=== PATIENT | female | born 1940 | race Caucasian/White ===

== ENCOUNTER 2017-09-18 19:23 | Inpatient (IN) | payer OTHER ==
[~2017-09-18] VITALS: Ht 157.5 cm; Wt 74.9 kg
[~2017-09-18 19:23] MED LIST: ALPRAZOLAM1 MG PO; AVELOX400 MG PO; BUSPIRONE HCL15 MG PO; BUSPIRONE15 MG PO; CARBIDOPA AND L1 TA1 PO; LOPRESSOR 12.12.5 MG PO; LOPRESSOR50 MG PO; PREDNISONE10 MG PO; SPIRIVA 18 MCG18 MCG INH; VENLAFAXINE HYD75 M1 PO; VERAPAMIL HCL180 MG PO
--- NOTE | 2017-09-18 19:54 | ED SYNCOPE COMPLAINT ---
History of Present Illness General Chief Complaint: General Adult Stated Complaint: WEAKNESS Source: patient Exam Limitations: no limitations Vital Signs & Intake/Output Vital Signs & Intake/Output Vital Signs Date Time Temp Pulse Resp B/P B/P Pulse O2 O2 Flow FiO2 Mean Ox Delivery Rate 09/19 0308 95 Room Air 09/19 0308 97.2 89 22 110/60 95 Room Air 09/19 0252 95 Room Air 09/19 0103 98.0 81 16 110/69 99 09/18 2238 98.7 80 18 108/57 98 Room Air 09/18 2058 98.7 80 18 107/58 97 Room Air 09/18 1940 89 16 113/64 96 Room Air ED Intake and Output 09/19 0000 09/18 1200 Intake Total 0 Output Total 0 Balance 0 Intake, Oral 0 Output, Urine 0 Allergies Coded Allergies: NO KNOWN ALLERGIES (10/20/13) Reconcile Medications Buspirone HCl (Unknown Strength) TABLET (Unknown Dose) PO BID MENTAL HEALTH ( Reported) Losartan Potassium (Unknown Strength) TABLET (Unknown Dose) PO DAILY BP ( Reported) Metoprolol Succinate (Unknown Strength) TAB.ER.24H (Unknown Dose) PO DAILY HEART/BP (Reported) Umeclidinium [place] (Incruse Ellipta) 62.5 MCG/ACTUATION BLST.W.DEV 1 PUFF INH DAILY COPD (Reported) Venlafaxine HCl (Venlafaxine HCl ER) (Unknown Strength) CAP.ER.24H (Unknown Dose) PO DAILY MENTAL HEALTH (Reported) Triage Nurses Notes Reviewed? yes Timing: single episode today Precipitating Factors: none Context: SUDDEN UNRESPONSIVENESS Episode Description: Patient was found unresponsive in a wheelchair in the waiting room. Loss of Consciousness: prolonged (minutes) Associated Symptoms: syncope LMP (ages 10-50): post menopausal : No Patient currently breastfeeds: No HPI: 77-year-old female past medical history of hypertension, hyperlipidemia, COPD presents for evaluation of weakness. Patient states that when she woke up today she felt very weak was unable to get out of bed without help. She usually is able to walk without difficulty. She denies any chest pain or shortness of breath. On initial evaluation to the ER patient was found in the waiting room unresponsive in a wheelchair. She was rushed back for evaluation. She does not remember the events leading up to her being unresponsive. She denies chest pain shortness of breath dizziness or lightheadedness. She's never had a heart attack. She sees Dr. Jacinto for cardiology. She does report some left lower extremity swelling that has been chronic for several months. No recent surgery no history of blood clots. (Ab Bond) Past History Travel History Traveled to [place] past 21 day No Medical History Any Pertinent Medical History? see below for history History of MRSA: No History of VRE: No History of CDIFF: No Surgical History Surgical History: non-contributory Psychosocial History Who do you live with Spouse Services at Home None What is your primary language Moz[place]ican Family History Family History, If Any: FATHER (cancer pancreas). Relation not specified for: FH: Alzheimers disease FH: bipolar disorder FH: cancer FH: heart attack FHx: stroke Hypertension Hx Contributory? No (Ab Bond) Review of Systems Review of Systems Constitutional: Reports: weakness. EENTM: Reports: no symptoms. Respiratory: Reports: no symptoms. Cardiovascular: Reports: syncope. GI: Reports: no symptoms. Genitourinary: Reports: no symptoms. Musculoskeletal: Reports: no symptoms. Skin: Reports: no symptoms. Neurological/Psychological: Reports: no symptoms. All Other Systems: Reviewed and Negative (Ab Bond) Physical Exam Physical Exam General Appearance: well developed/nourished, no apparent distress, alert, awake Head: atraumatic, normal appearance Eyes: Bilateral: normal appearance, PERRL, EOMI. Ears, Nose, Throat: normal pharynx, normal ENT inspection, hearing grossly normal Neck: normal inspection, supple, full range of motion Respiratory: normal breath sounds, chest non-tender, no respiratory distress, lungs clear Cardiovascular: regular rate/rhythm, normal peripheral pulses Gastrointestinal: normal bowel sounds, soft, no organomegaly, tenderness (mild upper abdominal pain ) Back: normal inspection, normal range of motion Extremities: normal range of motion, there is nonpitting left lower extremity edema Psychiatric: awake, alert, oriented x 3 Cranial Nerves: normal hearing, normal speech, PERRL Coordination/Gait: normal finger to nose Motor/Sensory: no motor/sensory deficits Skin: intact, normal color, warm/dry Core Measures ACS in differential dx? Yes CVA/TIA Diagnosis: No Sepsis Present: No Sepsis Focused Exam Completed? No (Ab Bond) Progress Differential Diagnosis: AMI, aortic dissection, aortic valve, drug induced syncope, orthostatic syncope, other valvular disease, pulmonary embolus, seizure , subarachnoid hem., TIA/CVA, dysrhythmia Plan of Care: Orders Procedure Date/time Status Heart Healthy Diet 09/19 B Active TROPONIN LEVEL 09/19 0600 Active CBC WITHOUT DIFFERENTIAL 09/19 0600 Active BASIC ELECTROLYTES PLUS BUN&CR 09/19 0600 Active EKG 09/19 0600 Active LACTIC ACID 09/19 0333 Active Weight 09/19 0212 Complete Vital Signs 09/19 0212 Active Teach/Educate 09/19 021 Active Pain Treatment and Response 09/20 211 Active Nutritional Intake, Monitor 09/19 021 Active Isolation 09/19 021 Active Intake & Output 09/19 021 Active Patient Care Conference 09/20 211 Active Activity/Ambulation 09/19 021 Active ECHOCARDIOGRAM 09/19 0156 Active PT Evaluate & Treat 09/19 0134 Active Saline Lock 09/19 0134 Active Pathway - chart 09/19 0134 Active House Staff 09/19 0134 Active Code Status 09/19 0134 Active LACTIC ACID 09/19 0033 Complete Patient Data 09/19 0017 Active TRC EVALUATION (GEN) 09/19 UNK Active VTE Mechanical Prophylaxis 09/19 UNK Active Vital Signs 09/19 UNK Complete MISTAKE 09/19 UNK Active Intake & Output 09/19 UNK Complete Saline Lock 09/18 2316 Active Misc Message 09/18 2316 Active ED Holding Orders 09/18 2316 Active Admit to inpatient 09/18 2316 Active Vital Signs 09/18 2316 Active Code Status 09/18 2316 Complete TROPONIN LEVEL 09/18 2300 Complete EKG 09/180 Active Add-on Test (ER Only) 09/18 2200 Active Intake & Output 09/18 1957 Active Add-on Test (ER Only) 09/18 1953 Active Telemetry/Certified Diabetes Educator 09/19 1951 Active LACTIC ACID 09/18 194 Complete D-DIMER 09/18 194 Complete B-TYPE NATRIURETIC PEP (BNP) 09/18 194 Complete Add-on Test (ER Only) 09/18 194 Active FingerStick- Glucose 09/18 1939 Active URINALYSIS 09/18 1924 Active TROPONIN LEVEL 09/18 192 Complete PARTIAL THROMBOPLASTIN TIME 09/18 1924 Complete PROTHROMBIN TIME 09/18 1924 Complete COMPREHENSIVE METABOLIC PANEL 09/18 1924 Complete CBC WITHOUT DIFFERENTIAL 09/18 1924 Complete EKG 09/18 1924 Active Current Medications Sig/Liliya Start time Last Medication Dose Stop Time Status Admin Heparin Sodium 5,000 UNIT Q8 09/19 0600 AC (Porcine) Acetaminophen 650 MG Q6P PRN 09/19 0130 AC (Tylenol) Acetaminophen 1,000 MG Q6P PRN 09/19 0130 AC (Ofirmev) Oxycodone/ 1 TAB Q8P PRN 09/19 013 AC Acetaminophen (Percocet) Laboratory Tests 09/19/17 0157: Lactic Acid 0.9 09/18/17 2325: Troponin I 0.14 *H 09/18/171945: Anion Gap 15, Estimated GFR 21 L, BUN/Creatinine Ratio 11.7, Glucose 137 H, Lactic Acid 2.6 H, Calcium 9.8, Total Bilirubin 0.6, AST 15, ALT 10, Alkaline Phosphatase 59, Troponin I 0.07, Kbr-S-Opfizpeeeud Pept 71007 H, Total Protein 7.0, Albumin 4.1, Globulin 2.9, Albumin/Globulin Ratio 1.4, PT 12.2, INR 1.12, APTT 24 L, D-Dimer High Sensitivty 870 H, CBC w Diff NO MAN DIFF REQ, RBC 4.24 , MCV 86.8, MCH 28.5, MCHC 32.9 L, RDW 13.9, MPV 5.9 L, Gran % 89.6 H, Lymphocytes % 6.8 L, Monocytes % 3.5, Eosinophils % 0.1, Basophils % 0, Absolute Granulocytes 11.4 H, Absolute Lymphocytes 0.9 L, Absolute Monocytes 0.4, Absolute Eosinophils 0, Absolute Basophils 0 Patient seen and evaluated. She was brought in from the waiting room unresponsive in her wheelchair. She was transferred to the hospital bed to telemetry when she was found to be in normal sinus rhythm. After several minutes patient woke up and is back to her baseline alert and oriented 3. She does not remove the events leading up to her becoming unresponsive. She denies chest pain or abnormal shortness of breath. No dizziness or lightheadedness. She just went generalized weakness feels that she is unable to get up and walk. No slurred speech. Patient's EKG today is grossly abnormal compared to previous. She has diffuse T-wave inversions. She has no chest pain. Spoke with Joe Whitfield MD from cardiology. He recommends trending troponins telemetry monitoring EKG echocardiogram cardiology consult in the morning. He does not recommend heparinization at this time. He states that we should give fluids recheck a creatinine and trY to get a CTA tomorrow if creatinine normalizes. Patient will be admitted to telemetry for further evaluation and treatment. She will require serial labs, serial EKGs, gentle IV hydration, telemetry, echocardiogram, stress test, cardiology consult, monitoring of vital signs. Case discussed with Dr. Cintron he agrees. Diagnostic Imaging: Viewed by Me: Radiology Read, CT Scan, Ultrasound. Discussed w/RAD: Radiology Read, CT Scan, Ultrasound. Radiology Impression: PATIENT: SOHAN PATE PRESENT AGE: 77 PATIENT ACCOUNT NO: [id number] : 42 LOCATION: ER ORDERING PHYSICIAN: Ab CULLEN SERVICE DATE: 09/18/17 EXAM TYPE: US - US-DUPLEX VENOUS EXTREM UNI EXAMINATION: UNILATERAL TRIPLEX SCANNING OF THE LEFT LOWER EXTREMITY CLINICAL INFORMATION: Left lower extremity swelling. COMPARISON: None. TECHNIQUE: Color-flow triplex imaging with spectral analysis and compression Doppler were performed on the left lower extremity. FINDINGS: Respiratory variation, normal compression and augmented flow are noted throughout the lower extremity. The visualized common femoral vein, superficial femoral vein, profunda femoral vein, popliteal vein and mid calf peroneal and posterior tibial venous segments show no evidence of deep venous thrombosis. There is no Rouse's cyst. IMPRESSION: Normal triplex scan without evidence of deep venous thrombosis involving the left lower extremity. DICTATED BY: Villa Robles MD DATE/TIME DICTATED:09/18/172126 PROCESSING LEAD: TONE DATE/TIME TRANSCRIBED:09/18/172126 CONFIDENTIAL, DO NOT COPY WITHOUT APPROPRIATE AUTHORIZATION. <Electronically signed in Other Vendor System> SIGNED BY: Villa Robles MD 09/18/172130, PATIENT: SOHAN PATE PRESENT AGE: 77 PATIENT ACCOUNT NO: [id number] : 42 LOCATION: ER ORDERING PHYSICIAN: Ab CULLEN SERVICE DATE: 09/18/17 EXAM TYPE: CAT - CT HEAD WO IV CONTRAST CT HEAD WITHOUT IV CONTRAST CLINICAL INFORMATION: Weakness and unresponsive episode. COMPARISON: None available. TECHNIQUE: Contiguous axial imaging was performed from the skull base to vertex without intravenous administration of contrast. FINDINGS: There is hypoattenuation throughout the supratentorial white matter, likely moderate to severe chronic microangiopathy. Global cerebral volume loss. No dense cerebral artery sign. There is no intracranial hemorrhage, hydrocephalus, extra-axial surface collection, midline shift, or other herniation pattern. Hurtado to white matter differentiation is diffusely maintained without evidence of an evolved acute territorial infarct. The basilar cisterns are preserved. No significant soft tissue abnormality. No acute osseous abnormality. The paranasal sinuses and the mastoid air cells are well-aerated. IMPRESSION: - No acute intracranial abnormality. - Global cerebral volume loss and moderate to severe chronic microangiopathy. DICTATED BY: Prakash Sapp MD DATE/TIME DICTATED:09/18/172128 PROCESSING LEAD:TONE DATE/TIME TRANSCRIBED:09/18/172128 CONFIDENTIAL, DO NOT COPY WITHOUT APPROPRIATE AUTHORIZATION., PATIENT: SOHAN PATE PRESENT AGE: 77 PATIENT ACCOUNT NO: [id number] : 42 LOCATION: [facility] ORDERING PHYSICIAN: Ab CULLEN SERVICE DATE: 09/18/17 EXAM TYPE: CAT - CT ABD & PELVIS W/O IV CONTRAS EXAMINATION: CT ABDOMEN AND PELVIS WITHOUT CONTRAST CLINICAL INFORMATION: Kidney stones with upper abdominal pain. History of lung cancer COMPARISON: PET/CT from 10/31/2015. Chest CT from 02/25/2017 TECHNIQUE: Multidetector volumetric imaging was performed from the superior aspect of the liver through the pubic symphysis. Sagittal and coronal reformatted images were obtained on the technologist's workstation. DLP: 368 mGy-cm FINDINGS: LUNG BASES : There is chronic atelectasis at the right lung base with pleural thickening and a moderate-sized pleural effusion. Findings are similar to the [address] LIVER, GALLBLADDER, AND BILIARY TREE: The liver is normal in size, shape, and attenuation. No focal hepatic lesion or biliary ductal dilatation is present. The gallbladder is unremarkable with no evidence of radiopaque gallstones, gallbladder wall thickening, or obvious pericholecystic inflammatory changes. PANCREAS: The pancreas is normal in appearance SPLEEN: The spleen is normal in size with no focal findings ADRENAL GLANDS: The adrenal glands are normal KIDNEYS AND URETERS: The kidneys show mild cortical thinning, left greater than right which could be consistent with renal scarring. No mass is defined. There is no hydronephrosis or hydroureter. There is some vascular calcification on the left. No ureteral calculus is identified. BLADDER: The urinary bladder is incompletely distended and unremarkable in appearance GASTROINTESTINAL TRACT: There is no evidence for large or small bowel obstruction or acute inflammation. The appendix is normal in appearance. There is no diverticulitis. ABDOMINAL WALL : There is a tiny fat-containing umbilical hernia. LYMPH NODES: No bulky adenopathy is seen in the abdomen or pelvis. VASCULAR: There is calcification in the abdominal aorta and branches. No focal aneurysm is seen. Inferior vena cava is unremarkable. PELVIC VISCERA: No mass is seen in the pelvis. There is no free fluid or abnormal fluid collection. OSSEOUS STRUCTURES: No acute bony abnormality. There is degenerative change in the spine and hips IMPRESSION: There is cortical thinning consistent with scarring in both kidneys. There is no hydronephrosis, hydroureter or stone. No acute finding is seen in the abdomen or pelvis. Chronic pleural parenchymal changes at the right lung base DICTATED BY: Dania Gutierrez MD DATE/TIME DICTATED:09/18/172232 PROCESSING LEAD: TONE DATE/TIME TRANSCRIBED:09/18/172232 CONFIDENTIAL, DO NOT COPY WITHOUT APPROPRIATE AUTHORIZATION. CXR Impression: PATIENT: SOHAN PATE PRESENT AGE: 77 PATIENT ACCOUNT NO: [id number] : 42 LOCATION: [facility] ORDERING PHYSICIAN: Ab CULLEN SERVICE DATE: 09/18/17 EXAM TYPE: RAD - XRY- CHEST XRAY, TWO VIEWS EXAMINATION: XR CHEST CLINICAL INFORMATION: Weakness COMPARISON: 11/07/2015. CT chest 02/25/2017. TECHNIQUE: 2 views of the chest were obtained. FINDINGS: Chronic partial opacification of the right chest, not significantly changed. Left lung appears clear. Stable cardiomediastinal silhouette. IMPRESSION: No acute cardiopulmonary findings. No significant change. DICTATED BY: Villa Robles MD DATE/TIME DICTATED:09/18/172110 PROCESSING LEAD:TONE DATE/TIME TRANSCRIBED:09/18/172110 CONFIDENTIAL, DO NOT COPY WITHOUT APPROPRIATE AUTHORIZATION. <Electronically signed in Other Vendor System> SIGNED BY: Villa Robles MD 09/18/172116 Initial ED EKG: normal sinus rhythm, RIGHT BUNDLE-BRANCH BLOCK, LEFT VENTRICULAR HYPERTROPHY, t-WAVE INVERSIONS IN v2 v3 v4 v5 AND v6 ALSO 1 AND LEAD 2 (Ab Bond) Departure Departure Disposition: STILL A PATIENT Condition: Stable Clinical Impression Primary Impression: Acute electrocardiogram changes Secondary Impressions: Acute kidney injury, Unresponsive episode Referrals: Daniel Osorio MD (PCP/Family) Departure Forms: Customer Survey General Discharge Information Admission Note Spoke With: Pedro Gunter MD Documentation of Exam: Documentation of any treatments & extenuating circumstances including Concerns Regarding Discharge (functional status, medication knowledge or non-compliance, living conditions, etc.) that warrant an admission rather than observation: [ Telemetry monitoring, serial labs, serial EKGs, echocardiogram, cardiology consult, monitoring of vital signs] (Ab Bond) Admission Note Spoke With: Pedro Gunter MD Documentation of Exam: Documentation of any treatments & extenuating circumstances including Concerns Regarding Discharge (functional status, medication knowledge or non-compliance, living conditions, etc.) that warrant an admission rather than observation: pt with episode of unresponsiveness, ekg changes.... merits admission, serial ekgs, cards eval. PA discussed with dr. Park (troy) PA/SENIOR COPYWRITER Co-Sign Statement Statement: ED Attending supervision documentation- [x] I saw and evaluated the patient. I have also reviewed all the pertinent lab results and diagnostic results. I agree with the findings and the plan of care as documented in the PA's/SENIOR COPYWRITER's documentation. 09/19/17, 9pm... pt with episode of unresponsiveness with EKG changes, exam presently benign, pt merits tele, serial ekgs. cards eval in am. [] I have reviewed the ED Record and agree with the PA's/SENIOR COPYWRITER's documentation. [] Additions or exceptions (if any) to the PAs/SENIOR COPYWRITER's note and plan are summarized below: [] (Abdulaziz BENITEZ,Joe Lorenzana)
[2017-09-18 20:05] LABS: PT 12.2 SEC (9.4-12.5); PTT 24 SEC (25-37)
[2017-09-18 20:14] LABS: ABSOLUTE BASOPHIL COUNT 0 /CUMM (0.0-0.2); ABSOLUTE EOSINOPHIL COUNT 0 /CUMM (0.0-0.7); ABSOLUTE GRANULOCYTE CT 11.4 /CUMM (1.4-6.5); ABSOLUTE LYMPH COUNT 0.9 /CUMM (1.2-3.4); ABSOLUTE MONOCYTE COUNT 0.4 /CUMM (0.10-0.60); BASOPHIL % 0 % (0.0-2.0); EOSINOPHIL % 0.1 % (0-5); HEMATOCRIT 36.8 % (37-47); MEAN CORPUSCULAR HGB 28.5 PG (27.0-31.0); MEAN CORPUSCULAR HGB CONC 32.9 G/DL (33.0-37.0); MEAN CORPUSCULAR VOLUME 86.8 FL (81.0-99.0); MEAN PLATELET VOLUME 5.9 FL (7.4-10.4); PLATELET COUNT 311 /CUMM (130-400); RBC DISTRIBUTION WIDTH 13.9 % (11.5-14.5); RED BLOOD CELL CT 4.24 /CUMM (4.20-5.40); WHITE BLOOD CELL COUNT 12.8 /CUMM (4.8-10.8)
[2017-09-18 20:29] LABS: GRANULOCYTE % 89.6 % (42.2-75.2)
[2017-09-18] MEDS ORDERED: INCRUSE ELLI62.5 MCG INH (21:16)
[2017-09-18] MEDS ORDERED: METOPROLOL SUCC50 M2 PO (21:17)
--- NOTE | 2017-09-18 21:17 | RADIOLOGY REPORT ---
EXAMINATION: XR CHEST CLINICAL INFORMATION: Weakness COMPARISON: 11/07/2015. CT chest 02/25/2017. TECHNIQUE: 2 views of the chest were obtained. FINDINGS: Chronic partial opacification of the right chest, not significantly changed. Left lung appears clear. Stable cardiomediastinal silhouette. IMPRESSION: No acute cardiopulmonary findings. No significant change.
[2017-09-18] MEDS ORDERED: LOSARTAN POTASS50 M1 PO (21:18)
[2017-09-18] MEDS ORDERED: BUSPIRONE HCL15 M1 PO (21:19)
[2017-09-18] MEDS ORDERED: VENLAFAXINE HCL75 M1 PO (21:20)
--- NOTE | 2017-09-18 21:31 | ULTRASOUND REPORT ---
EXAMINATION: UNILATERAL TRIPLEX SCANNING OF THE LEFT LOWER EXTREMITY CLINICAL INFORMATION: Left lower extremity swelling. COMPARISON: None. TECHNIQUE: Color-flow triplex imaging with spectral analysis and compression Doppler were performed on the left lower extremity. FINDINGS: Respiratory variation, normal compression and augmented flow are noted throughout the lower extremity. The visualized common femoral vein, superficial femoral vein, profunda femoral vein, popliteal vein and mid calf peroneal and posterior tibial venous segments show no evidence of deep venous thrombosis. There is no Rouse's cyst. IMPRESSION: Normal triplex scan without evidence of deep venous thrombosis involving the left lower extremity.
--- NOTE | 2017-09-18 21:38 | CT SCAN REPORT ---
CT HEAD WITHOUT IV CONTRAST CLINICAL INFORMATION: Weakness and unresponsive episode. COMPARISON: None available. TECHNIQUE: Contiguous axial imaging was performed from the skull base to vertex without intravenous administration of contrast. FINDINGS: There is hypoattenuation throughout the supratentorial white matter, likely moderate to severe chronic microangiopathy. Global cerebral volume loss. No dense cerebral artery sign. There is no intracranial hemorrhage, hydrocephalus, extra-axial surface collection, midline shift, or other herniation pattern. Hurtado to white matter differentiation is diffusely maintained without evidence of an evolved acute territorial infarct. The basilar cisterns are preserved. No significant soft tissue abnormality. No acute osseous abnormality. The paranasal sinuses and the mastoid air cells are well-aerated. IMPRESSION: - No acute intracranial abnormality. - Global cerebral volume loss and moderate to severe chronic microangiopathy.
--- NOTE | 2017-09-18 23:03 | CT SCAN REPORT ---
EXAMINATION: CT ABDOMEN AND PELVIS WITHOUT CONTRAST CLINICAL INFORMATION: Kidney stones with upper abdominal pain. History of lung cancer COMPARISON: PET/CT from 10/31/2015. Chest CT from 02/25/2017 TECHNIQUE: Multidetector volumetric imaging was performed from the superior aspect of the liver through the pubic symphysis. Sagittal and coronal reformatted images were obtained on the technologist's workstation. DLP: 368 mGy-cm FINDINGS: LUNG BASES: There is chronic atelectasis at the right lung base with pleural thickening and a moderate-sized pleural effusion. Findings are similar to the [address] LIVER, GALLBLADDER, AND BILIARY TREE: The liver is normal in size, shape, and attenuation. No focal hepatic lesion or biliary ductal dilatation is present. The gallbladder is unremarkable with no evidence of radiopaque gallstones, gallbladder wall thickening, or obvious pericholecystic inflammatory changes. PANCREAS: The pancreas is normal in appearance SPLEEN: The spleen is normal in size with no focal findings ADRENAL GLANDS: The adrenal glands are normal KIDNEYS AND URETERS: The kidneys show mild cortical thinning, left greater than right which could be consistent with renal scarring. No mass is defined. There is no hydronephrosis or hydroureter. There is some vascular calcification on the left. No ureteral calculus is identified. BLADDER: The urinary bladder is incompletely distended and unremarkable in appearance GASTROINTESTINAL TRACT: There is no evidence for large or small bowel obstruction or acute inflammation. The appendix is normal in appearance. There is no diverticulitis. ABDOMINAL WALL: There is a tiny fat-containing umbilical hernia. LYMPH NODES: No bulky adenopathy is seen in the abdomen or pelvis. VASCULAR: There is calcification in the abdominal aorta and branches. No focal aneurysm is seen. Inferior vena cava is unremarkable. PELVIC VISCERA: No mass is seen in the pelvis. There is no free fluid or abnormal fluid collection. OSSEOUS STRUCTURES: No acute bony abnormality. There is degenerative change in the spine and hips IMPRESSION: There is cortical thinning consistent with scarring in both kidneys. There is no hydronephrosis, hydroureter or stone. No acute finding is seen in the abdomen or pelvis. Chronic pleural parenchymal changes at the right lung base
--- NOTE | 2017-09-19 02:12 | History & Physical ---
Winston BENITEZ,[place] 09/19/17 0212: General Information and HPI History of Present Illness: Patient is a 77-year-old female with past medical history of hypertension, hyperlipidemia, COPD, non-small cell lung cancer status post chemotherapy and radiation, anxiety presenting this admission with chief complaint of weakness and syncope. Patient reports that over the past day she has been feeling weak and weakness worsened over the course of the day. Patient reports that she was trying to get up after eating dinner and was unable to fully stand. Patient reports that she proceeded to fall. Patient denies any head trauma or loss of consciousness. Patient reports that she felt dizzy and as if the room was spinning. Reports she was also having abdominal pain in the epigastric region which she described as nonradiating, dull pain that is intermittent and started on day of admission. Denies any nausea, vomiting, heartburn, constipation/diarrhea, chest pain, dysuria/hematuria. Patient denies blurry vision, double vision, numbness/ tingling, shortness of breath, palpitations. Patient's partner reports that he did not notice any facial droop or slurred speech. Patient reports left leg swelling which is chronic and orthopnea. Patient when she was in the ED was found to be unresponsive and was quickly worked up with no acute EKG findings. at the time of interview patient was awake alert and oriented 3 and provided the full history. Patient's clinical support associate is Dr. Rush whom she reports that she saw last week and had no medication changes. Allergies/Medications Allergies: Coded Allergies: NO KNOWN ALLERGIES (10/20/13) Home Med list Albuterol Sulfate (Proair Hfa) 90 MCG HFA.AER.AD 2 PUF INH Q4-6 PRN PRN SHORTNESS OF BREATH (Reported) Buspirone HCl 15 MG TABLET 1 TAB PO QAM MENTAL HEALTH (Reported) Buspirone HCl 30 MG TABLET 1 TAB PO QPM MENTAL HEALTH (Reported) Carbidopa/Levodopa (Sinemet 25-100 MG Tablet) 25 MG-100 MG TABLET 1 TAB PO TID PARKINSONISM (Reported) Gabapentin (Neurontin) 100 MG CAPSULE 1 CAP PO TID . (Reported) Losartan Potassium 50 MG TABLET 1 TAB PO DAILY BP (Reported) Metformin HCl (Metformin HCl ER) 1,000 MG TAB.ER.24 1 TAB PO DAILY DM ( Reported) Metolazone 2.5 MG TABLET 1 TAB PO QFRIDAY . (Reported) Metoprolol Succinate 50 MG TAB.ER.24H 1 TAB PO DAILY HEART/BP (Reported) Pravastatin Sodium 40 MG TABLET 1 TAB PO DAILY HLD (Reported) Prochlorperazine Maleate 10 MG TABLET 1 TAB PO Q6 PRN NAUSEA/VOMITING ( Reported) Ropinirole HCl 1 MG TABLET 1 TAB PO Q1400, 2100 MENTAL HEALTH (Reported) Tramadol HCl 50 MG TABLET 1 TAB PO TIDPRN PRN PAIN (Reported) Umeclidinium [place] (Incruse Ellipta) 62.5 MCG/ACTUATION BLST.W.DEV 1 PUFF INH DAILY COPD (Reported) Venlafaxine HCl (Venlafaxine HCl ER) 75 MG CAP.ER.24H 1 CAP PO DAILY MENTAL HEALTH (Reported) Past History Travel History Traveled to [place] past 21 day No Medical History Cardiovascular: hypertension, hyperlipidemia, hypertension Endocrine: borderline diabetes History of MRSA: No History of VRE: No History of CDIFF: No Surgical History Surgical History: non-contributory Past Family/Social History Family History Relations & Conditions if any FATHER (cancer pancreas). Relation not specified for: FH: Alzheimers disease FH: bipolar disorder FH: cancer FH: heart attack FHx: stroke Hypertension Psychosocial History Services at Home: None Review of Systems Review of Systems Constitutional: Reports: see HPI. Cardiovascular: Reports: see HPI. Respiratory: Reports: see HPI. GI: Reports: see HPI. Genitourinary: Reports: no symptoms. Musculoskeletal: Reports: back pain. Skin: Reports: no symptoms. Neurological/Psychological: Reports: no symptoms. Hematologic/Endocrine: Reports: no symptoms. Exam & Diagnostic Data Last 24 Hrs of Vital Signs/I&O Vital Signs Date Time Temp Pulse Resp B/P B/P Pulse O2 O2 Flow FiO2 Mean Ox Delivery Rate 09/19 0723 97.4 94 22 130/70 98 Room Air 09/19 0308 95 Room Air 09/19 0308 97.2 89 22 110/60 95 Room Air 09/19 0252 95 Room Air 09/19 0103 98.0 81 16 110/69 99 09/18 2238 98.7 80 18 108/57 98 Room Air 09/188 98.7 80 18 107/58 97 Room Air 09/18 1940 89 16 113/64 96 Room Air Intake & Output 09/19 1600 09/19 0800 09/19 0000 Intake Total 0 Output Total 0 Balance 0 Intake, Oral 0 Output, Urine 0 Patient 175 lb Weight Physical Exam General Appearance Alert, Oriented X3, Cooperative, No Acute Distress Skin No Rashes Skin Temp/Moisture Exam: Warm/Dry HEENT Atraumatic, PERRLA, EOMI, Mucous Membr. moist/pink Neck Supple, No thryomegaly, +2 Carotid Pulse wo Bruit, elevated JVD Cardiovascular Regular Rate, Normal S1, Normal S2, No Murmurs Lungs Clear to Auscultation, Normal Air Movement Abdomen Normal Bowel Sounds, Soft, No Tenderness Neurological Normal Speech, Strength at 5/5 X4 Ext, Normal Tone, Sensation Intact, Cranial Nerves 3-12 NL, Reflexes 2+ Extremities No Clubbing, No Cyanosis, Normal Pulses, No Tenderness/Swelling, bilateral lower extremity edema Vascular Normal Pulses, Pulses Symmetrical Last 24 Hrs of Labs/Elias: Laboratory Tests 09/19/17 0745: Urine Color Pending, Urine Clarity Pending, Urine pH Pending, Ur Specific [place] Pending, Urine Protein Pending, Urine Ketones Pending, Urine Nitrite Pending, Urine Bilirubin Pending, Urine Urobilinogen Pending, Ur Leukocyte Esterase Pending, Ur Microscopic SEDIMENT EXAMINED, Urine RBC Pending, Urine Hemoglobin Pending, Urine Glucose Pending 09/19/17 0745: Urine Osmolality Pending, Ur Random Creatinine Pending, Ur Random Sodium Pending , Ur Random Potassium Pending, Fraction Sodium Excret Pending 09/19/17 0715: Lactic Acid 0.7 09/19/17 0715: Anion Gap 10, Estimated GFR 23 L, BUN/Creatinine Ratio 13.3, Hemoglobin A1c Pending, Troponin I Pending, CBC w Diff Pending, WBC Pending, RBC Pending, Hgb Pending, Hct Pending, MCV Pending, MCH Pending, MCHC Pending, RDW Pending, Plt Count Pending, MPV Pending 09/19/17 0157: Lactic Acid 0.9 09/18/17 2325: Troponin I 0.14 *H 09/18/17 1946: Anion Gap 15, Estimated GFR 21 L, BUN/Creatinine Ratio 11.7, Glucose 137 H, Serum Osmolality 297 H, Lactic Acid 2.6 H, Calcium 9.8, Total Bilirubin 0.6, AST 15, ALT 10, Alkaline Phosphatase 59, Troponin I 0.07, Eiy-E-Kxtaaabpavs Pept 51846 H, Total Protein 7.0, Albumin 4.1, Globulin 2.9, Albumin/Globulin Ratio 1.4, Lipase 517 H, PT 12.2, INR 1.12, APTT 24 L, D-Dimer High Sensitivty 870 H, CBC w Diff NO MAN DIFF REQ, RBC 4.24, MCV 86.8, MCH 28.5, MCHC 32.9 L, RDW 13.9, MPV 5.9 L, Gran % 89.6 H, Lymphocytes % 6.8 L, Monocytes % 3.5, Eosinophils % 0.1, Basophils % 0, Absolute Granulocytes 11.4 H, Absolute Lymphocytes 0.9 L, Absolute Monocytes 0.4, Absolute Eosinophils 0, Absolute Basophils 0 Microbiology 09/19 804 BLOOD: Blood Culture - ORD 09/19 804 BLOOD: Blood Culture - ORD Assessment/Plan Assessment: Patient is a 77-year-old female with past medical history of hypertension, hyperlipidemia, COPD, non-small cell lung cancer status post chemotherapy and radiation, anxiety presenting this admission with chief complaint of weakness and syncope. Patient was admitted to the telemetry floor for management of followin. Syncope 2. Elevated troponin, rule out ACS 3. Rule out for pulmonary embolism 4. Chronic conditions Plan: Admitted to telemetry for continuous monitoring Serial EKG and troponins Cardiology was consulted. Spoke to Joe Whitfield MD at approximately 3 AM in regards to to elevated troponin with V4 to V5 T-wave inversions. There was also concern of pulmonary embolism in this patient with mild JVD, syncope, clear lung exam. CTA could not be obtained due to renal failure. IV heparin was held off pending VQ scan results and next set of troponins/EKG Follow-up blood cultures Follow-up urinalysis and urine cultures Trend lactic acid Monitor vitals Confirm home medications in the morning Diet: Heart healthy Code: Full code DVT prophylaxis: Heparin subcutaneous, Alps As Ranked By This Provider Problem List: 1. Syncope 2. Elevated troponin Core Measures/Misc (02/09) Acute Coronary Syndrome ACS Diagnosis: No Congestive Heart Failure Congestive Heart Failure Diagnosis No Cerebrovascular Accident CVA/TIA Diagnosis: No VTE (View Protocol) VTE Risk Factors Age>40 No Mechanical VTE [facility] No VTE Pharm Prophylaxis d/t NA PharmProphylax ordered Sepsis (View protocol) Sepsis Present: No Marv Mancia 09/19/17 0454: Resident Review Statement Resident Statement: examined this patient, discussed with finance accounting internship, agreed with finance accounting internship, discussed with family, reviewed EMR data (avail), discussed with nursing , discussed with case mgmt, reviewed images, amended to note Other Findings: This is 77-year-old female with a medical history of Non-small cell lung cancer S/P chemotherapy and radiation, COPD not on home O2 , HTN, HLD, Parkinson's disease, anxiety. Presented to the emergency department with a chief complaint of generalized weakness and syncope. She stated that her symptom of feeling very lethargic, weak and tired started 1-2 days ago, also she report epigastric abdominal pain which started today, nonradiating, not associated with nausea, vomiting, heartburn, chest pain, urinary symptoms. She has chronic orthopnea and leg swelling which has not changed much. after she arrived to the ED she was found in the waiting room unresponsive in a wheelchair. She was rushed back for evaluation. She does not remember the events leading up to her being unresponsive. she satetd that when she was at home she fell down, she deny lose consciousness, hit her head, did not have any chest pain chest tightness before the fall, did not notice any neurological weakness or palpitations. Patient received full dose of aspirin and 1 L of normal saline bolus her second troponin peaked at 0.14 and she had elevated proBNP with a leukocytosis no band. Her EKG showed acute changes of inverted T-wave in V4 to V6. No Echo in the system. Physical examination, lab and imaging as above Problem list: -Elevated troponin could be secondary to demand ischemia, but given her epigastric pain and T-wave inversions, type 1 SD could be possible. -Syncope NEED TO R/O pulmonary embolism giving the CA hx -Acute kidney injury that can be due to medication vs low oral intake. -Leukocytosis -Non anion gap Lactic acidosis Plan: - Admit to telemetry - Vital every shift, daily weight, Strict I's and O's - Serial troponin and EKG - Check Orthostatic vitals - Obtain TSH, free T4, magnesium, HA1c. - Obtain echocardiogram in a.m. - Cardiology consult in A.M - Start IV heparin if further rise in troponin, informed cardiology - VQ scan to R/O PE due to her CHAS - Obtain Blood cultures, hold off on antibiotic for now. - Obtain urinalysis and urine electrolytes. - Trend lactic acid - Continue gentle hydration with normal saline 75 cc/hr. - Pain pathway - Need to confirm all her medications to be restart. - Diabetic diet, Accu-Chek - DVT ppt: Subcutaneous heparin - Full code Pedro Gunter 09/19/17 0607: Attending MD Review Statement Attending Statement Attending MD Statement: examined this patient, discuss w/resident/PA/WINDOW CUTTER, agreed w/resident/PA/WINDOW CUTTER, discussed with family, reviewed EMR data (avail), reviewed images, amended to note Attending Assessment/Plan: CC: Weakness and syncope PMH: Non-small cell lung cancer S/P chemotherapy and radiation, COPD, HTN, HLD, Parkinson's disease, anxiety Patient came to ER for 1 day history of feeling very lethargic, weak and tired to the extent that she could not even get up from the chair and almost fell down. She also endorses epigastric abdominal pain which started today, nonradiating, not associated with nausea, vomiting, heartburn, chest pain, urinary symptoms. She has chronic orthopnea and leg swelling which has not changed much. While waiting in the ER patient lost consciousness. She was immediately rushed to the room, did not have any acute ECG changes at that time eventually patient became more alert and oriented and provided the history. Patient does not remember all her home medications. When she fell down at home she did not lose consciousness, hit her head, did not have any chest pain chest tightness before the fall, did not notice any neurological weakness or palpitations. Vitals: Temperature 98.7, pulse 89, RR 16, blood pressure 113/64, saturating 96% on room air. On exam: A O 3, cooperative, no acute distress, neck supple, JVD mild elevation , no lymphadenopathy, mucosa moist, no focal neurological deficit, +2 leg edema, no obvious skin rashes or inflammation CVS: S1-S2, RRR. RS: Clear to auscultate bilaterally. Abdomen: Soft, NT, ND, bowel sounds present. CXR: No acute cardiopulmonary findings. No significant change. CT head: - No acute intracranial abnormality. - Global cerebral volume loss and moderate to severe chronic microangiopathy. Left lower extremity DVT Doppler: Normal triplex scan without evidence of deep venous thrombosis involving the left lower extremity. Abdomen and pelvis CT without contrast: There is cortical thinning consistent with scarring in both kidneys. There is no hydronephrosis, hydroureter or stone. No acute finding is seen in the abdomen or pelvis. Chronic pleural parenchymal changes at the right lung base Assessment and plan 77-year-old female with above-mentioned past medical history presented in ER for a 1 day history of lethargy, weakness and tiredness, fall without trauma. In the waiting room she had an episode of syncope. She has chronic lower extremity edema and orthopnea otherwise complete ROS unremarkable. She was found to have mild leukocytosis with left shift and acute kidney injury, her creatinine increased from 1.6 to 2.3 from September 15. Her initial troponin was 0.07 which increased to 0.14, proBNP 13,700. She received a liter normal saline in ER and her lactate improved from 2.6 to 0.9 . All her symptoms could be secondary to dehydration with excessive diuresis causing transient hypotension, CHAS. At the same time pulmonary embolism is another possibility given her leg swelling, mild elevation in JVD and d-dimer. Given her elevated creatinine, CTA cannot be obtained. Elevation in troponin could be secondary to demand ischemia. Arrhythmia should be ruled out as a cause of her syncope. ECG shows RBBB and diffuse T-wave inversions in ant lat leads. No acute source of infection identified for leukocytosis and lactic acidosis, watch off antibiotics. + Syncope + Elevated troponin could be secondary to demand ischemia, but given her epigastric pain and T-wave inversions, type 1 SD could be possible. (atypical s/ s in females) + Rule out pulmonary embolism + Leukocytosis + History of Non-small cell lung cancer S/P chemotherapy and radiation, COPD, HTN, HLD, Parkinson's disease, anxiety - Admit to telemetry - Continuous telemetry monitoring - Serial troponin and EKG - Orthostatic vitals - 2-D echocardiogram in a.m. - Cardiology consult - DVT prophylaxis - Start IV heparin if further rise in troponin, informed cardiology - VQ scan - Blood cultures - Trend lactate - Continue gentle hydration with normal saline - Check lipase - Vitals every 4 hourly - Adequate pain control - Need to confirm all her medications to restart.
[2017-09-19 03:08] VITALS: BP 110/60
--- NOTE | 2017-09-19 06:08 | Admission Certification ---
Admission Certification Certification Statement - As attending physician, I certify that at the time of - admission, based on clinical presentation, severity of - symptoms, need for further diagnostic testing and - therapeutic interventions, and risk of adverse outcomes - without in-hospital treatment, in my clinical assessment, - this patient requires an acute hospital stay for a minimum - of two nights or longer. I have also considered psychsocial - factors such as support system, advanced age, financial - issues, cognitive issues, and failed out-patient treatments, - past re-admission history, safety of patient, and lack of - compliance as applicable. Specific rationale supporting this admission is: Syncope, elevated troponin, acute kidney injury
[2017-09-19 07:23] VITALS: BP 130/70
--- NOTE | 2017-09-19 07:37 | Event Note ---
Event Note Event Note: 77-year-old female with past medical history of COPD not on oxygen, mild cardiomyopathy, venous insufficiency, right bundle branch block, ex-smoker (quit 8hrs) non-small cell lung cancer status post chemotherapy/radiation 8 yrs ago, nonobstructive carotid stenosis, hypertension, hyperlipidemia, was brought in to the emergency for worsening weakness, fatigue since past 2 days, and at the triage station she "fainted" without any other symptoms. She does NOT remember any of this herself. Currently, she feels fine, and does not offer any complaints. Patient is currently admitted in the telemetry be floor for the management of following issues: #Syncope Given patient's history that she was feeling tired and not eating or drinking well for the past couple of days, dehydration could be one of the reason for syncope. She has been eating and drinking well in the hospital but she does have a new ARF, which supports dehydration. Not sure if her syncope is cardiogenic, so will continue to monitor her in telemetry unit. Will get echocardiogram. Of note, she does not have any focal neurological deficit. #Elevated troponin Likely due to demand ischemia. Cardiology recs to be followed. She denies any chest pain/pressure/heaviness and is also objectively not in any distress. Making type 1 OH less likely. We are repeating an echocardiogram to see for any functional/structural changes. #Acute renal failure Her BUN/Cr is 28/2.1 which is a rise from 21/1.6 in 09/15/17 and a definite rise from 18/0.7 in 2013. This could be due to dehydration and thus IV Fluids have been restarted. Avoid nephrotoxic drugs. Following nephrology recs. #Rule out PE With clinical suspicion (although low), she underwent VQ scan, now negative results, could not go for contrast CTA chest due to CHAS, but was not placed on IV Heparin due to low index of suspicion. #Lactic acidosis Patient's lactic acid initially was 2.6, trended down to 0.9 and 0.7. Now normal. #Will continue rest of her home meds. Reconcilation done. #Diet: CC2 diet #DVT ppx: SQ Heparin #Code status: Full code
[2017-09-19 08:14] LABS: ABSOLUTE BASOPHIL COUNT 0 /CUMM (0.0-0.2); ABSOLUTE EOSINOPHIL COUNT 0 /CUMM (0.0-0.7); ABSOLUTE GRANULOCYTE CT 10.5 /CUMM (1.4-6.5); ABSOLUTE LYMPH COUNT 0.7 /CUMM (1.2-3.4); ABSOLUTE MONOCYTE COUNT 0.2 /CUMM (0.10-0.60); BASOPHIL % 0 % (0.0-2.0); EOSINOPHIL % 0 % (0-5); MEAN CORPUSCULAR HGB CONC 33.4 G/DL (33.0-37.0); MEAN CORPUSCULAR VOLUME 86.7 FL (81.0-99.0); MEAN PLATELET VOLUME 6.1 FL (7.4-10.4); PLATELET COUNT 249 /CUMM (130-400); RBC DISTRIBUTION WIDTH 13.9 % (11.5-14.5); RED BLOOD CELL CT 3.92 /CUMM (4.20-5.40); WHITE BLOOD CELL COUNT 11.4 /CUMM (4.8-10.8)
--- NOTE | 2017-09-19 10:32 | Cons- Cardiology ---
General Information and HPI Consulting Request Date of Consult: 09/19/17 Requested By: Cely BENITEZ,Андрей Reason for Consult: Elevated troponin Source of Information: patient, old records History of Present Illness: This is a pleasant 77-year-old female with a past medical history of COPD, mild cardiomyopathy, venous insufficiency, right bundle branch block, non-small cell lung CA with prior chemo/radiation, abnormal nuclear stress test in the past showing possible infarct versus artifact, nonobstructive carotid stenosis, hypertension, and hyperlipidemia who presents with progressive weakness/lethargy for the past 1-2 days; denies decreased p.o. intake, nausea, vomiting, or diarrhea. Apparently in the emergency room she had a brief episode of unresponsiveness. She denies any chest pain, dyspnea, or palpitations. On my interview with her today she is feeling well. She denies recent new medications including no heavy NSAID use. Allergies/Medications Allergies: Coded Allergies: NO KNOWN ALLERGIES (10/20/13) Home Med List: Buspirone HCl (Unknown Strength) TABLET (Unknown Dose) PO BID MENTAL HEALTH ( Reported) Losartan Potassium (Unknown Strength) TABLET (Unknown Dose) PO DAILY BP ( Reported) Metoprolol Succinate (Unknown Strength) TAB.ER.24H (Unknown Dose) PO DAILY HEART/BP (Reported) Umeclidinium Burton (Incruse Ellipta) 62.5 MCG/ACTUATION BLST.W.DEV 1 PUFF INH DAILY COPD (Reported) Venlafaxine HCl (Venlafaxine HCl ER) (Unknown Strength) CAP.ER.24H (Unknown Dose) PO DAILY MENTAL HEALTH (Reported) Current Medications: Current Medications Sig/Liliya Start time Last Medication Dose Route Stop Time Status Admin Acetaminophen 650 MG Q6P PRN 09/19 0130 AC PO Acetaminophen 1,000 MG Q6P PRN 09/19 0130 AC IV Aspirin 0 .STK-MED ONE 09/18 2001 DC PO Aspirin 325 MG ONCE ONE 09/19 1999 DC 09/18 PO 09/18 Heparin Sodium 5,000 UNIT Q8 09/19 0600 AC 09/19 (Porcine) SC 0537 Oxycodone/ 1 TAB Q8P PRN 09/19 0130 AC Acetaminophen PO Sodium Chloride 1,000 ML Q13H 09/19 0815 AC 09/19 IV 09/19 2113 1016 Sodium Chloride 1,000 ML BOLUS ONE 09/18 2100 DC 09/18 IV 09/18 Review of Systems Review of Systems: Review of systems as per HPI. The remainder of a 10 point review of systems was reviewed and was otherwise negative. Past History Travel History Traveled to [place] past 21 day No Medical History Cardiovascular: hypertension, hyperlipidemia, hypertension Endocrine: borderline diabetes Surgical History Surgical History: non-contributory Family History Relations & Conditions If Any: FATHER (cancer pancreas). Relation not specified for: FH: Alzheimers disease FH: bipolar disorder FH: cancer FH: heart attack FHx: stroke Hypertension Psychosocial History Where Do You Live? Home Services at Home: None Smoking Status: Former Smoker Exam & Diagnostic Data Vital Signs and I&O Vital Signs Date Time Temp Pulse Resp B/P B/P Pulse O2 O2 Flow FiO2 Mean Ox Delivery Rate 09/19 0723 97.4 94 22 130/70 98 Room Air 09/19 0308 95 Room Air 09/19 0308 97.2 89 22 110/60 95 Room Air 09/19 0252 95 Room Air 09/19 0103 98.0 81 16 110/69 99 09/18 2238 98.7 80 18 108/57 98 Room Air 09/188 98.7 80 18 107/58 97 Room Air 09/18 1940 89 16 113/64 96 Room Air Intake & Output 09/19 1600 09/19 0800 09/19 0000 09/18 1600 09/18 0800 09/18 0000 Intake Total 0 Output Total 0 Balance 0 Intake, Oral 0 Output, Urine 0 Patient 175 lb Weight Physical Exam: General: no apparent distress. Alert. Eyes: No obvious scleral icterus. HEENT: No jugular venous distention or abnormal jugular venous pulsations. Cardiovascular: Normal intensity S1/S2. Regular Respiratory: Lungs clear to auscultation bilaterally. Abdomen: Soft, nontender with no guarding or rebound tenderness. Musculoskeletal: No clubbing or cyanosis noted Skin: warm Neurologic: No gross focal deficits noted. Lymph: No gross lymphadenopathy. Labs/Elias Results: Laboratory Tests 09/19 09/19 09/19 0745 0752 0756 Chemistry Lactic Acid (0.7 - 2.1 mmol/L) 0.7 Urines Urine Color (YEL,AMB,STR) YEL Urine Clarity (CLEAR) HAZY H Urine pH (5.0 - 8.0) 6.0 Ur Specific [place] (1.001 - 1.035) >= 1.030 Urine Protein (NEG,<30 MG/DL) 100 H Urine Ketones (NEG) NEG Urine Nitrite (NEG) NEG Urine Bilirubin (NEG) NEG Urine Urobilinogen (0.1 - 1.0 EU/dl) 0.2 Ur Leukocyte Esterase (NEG) SMALL H Ur Microscopic SEDIMENT EXAMINED Urine RBC (0 - 5 /HPF) 3-5 Urine WBC (0 - 2 /HPF) 25-50 H Ur Epithelial Cells (NONE,FEW) OCCAS Urine Bacteria (NEG/NONE) RARE H Granular Casts (NONE /LPF) FEW H Urine Hemoglobin (NEG) SMALL H Urine Osmolality (300 - 1000 MOSM/KG) 408 Ur Random Creatinine (mg/dL) 138.1 Ur Random Sodium (30 - 90 mmol/L) 36 Ur Random Potassium (mmol/L) 50.5 Fraction Sodium Excret (<1% %) 0.4 Urine Glucose (N MG/DL) NEG 09/19 09/19 09/18 0715 0157 2325 Chemistry Sodium (137 - 145 mmol/L) 138 Potassium (3.5 - 5.1 mmol/L) 4.0 Chloride (98 - 107 mmol/L) 100 Carbon Dioxide (22 - 30 mmol/L) 28 Anion Gap (5 - 16) 10 BUN (7 - 17 mg/dL) 28 H Creatinine (0.5 - 1.0 mg/dL) 2.1 H Estimated GFR (>60 ml/min) 23 L BUN/Creatinine Ratio (7 - 25 %) 13.3 Hemoglobin A1c (4.2 - 5.8 %) Pending Lactic Acid (0.7 - 2.1 mmol/L) 0.9 Troponin I (< 0.11 ng/ml) 0.13 *H 0.14 *H Hematology CBC w Diff NO MAN DIFF REQ WBC (4.8 - 10.8 /CUMM) 11.4 H RBC (4.20 - 5.40 /CUMM) 3.92 L Hgb (12.0 - 16.0 G/DL) 11.4 L Hct (37 - 47 %) 34.0 L MCV (81.0 - 99.0 FL) 86.7 MCH (27.0 - 31.0 PG) 29.0 MCHC (33.0 - 37.0 G/DL) 33.4 RDW (11.5 - 14.5 %) 13.9 Plt Count (130 - 400 /CUMM) 249 MPV (7.4 - 10.4 FL) 6.1 L Gran % (42.2 - 75.2 %) 92.0 H Lymphocytes % (20.5 - 51.1 %) 6.3 L Monocytes % (1.7 - 9.3 %) 1.7 Eosinophils % (0 - 5 %) 0 Basophils % (0.0 - 2.0 %) 0 Absolute Granulocytes (1.4 - 6.5 /CUMM) 10.5 H Absolute Lymphocytes (1.2 - 3.4 /CUMM) 0.7 L Absolute Monocytes (0.10 - 0.60 /CUMM) 0.2 Absolute Eosinophils (0.0 - 0.7 /CUMM) 0 Absolute Basophils (0.0 - 0.2 /CUMM) 0 09/18 1945 Chemistry Sodium (137 - 145 mmol/L) 138 Potassium (3.5 - 5.1 mmol/L) 4.0 Chloride (98 - 107 mmol/L) 95 L Carbon Dioxide (22 - 30 mmol/L) 28 Anion Gap (5 - 16) 15 BUN (7 - 17 mg/dL) 27 H Creatinine (0.5 - 1.0 mg/dL) 2.3 H Estimated GFR (>60 ml/min) 21 L BUN/Creatinine Ratio (7 - 25 %) 11.7 Glucose (65 - 99 mg/dL) 137 H Serum Osmolality (285 - 295 MOSM/KG) 297 H Lactic Acid (0.7 - 2.1 mmol/L) 2.6 H Calcium (8.4 - 10.2 mg/dL) 9.8 Total Bilirubin (0.2 - 1.3 mg/dL) 0.6 AST (14 - 36 U/L) 15 ALT (9 - 52 U/L) 10 Alkaline Phosphatase (<127 U/L) 59 Troponin I (< 0.11 ng/ml) 0.07 Koy-X-[id number] Pept (<125 pg/mL) 37171 H Total Protein (6.3 - 8.2 g/dL) 7.0 Albumin (3.5 - 5.0 g/dL) 4.1 Globulin (1.9 - 4.2 gm/dL) 2.9 Albumin/Globulin Ratio (1.1 - 2.2 %) 1.4 Lipase (23 - 300 U/L) 517 H Coagulation PT (9.4 - 12.5 SEC) 12.2 INR (0.90 - 1.19) 1.12 APTT (25 - 37 SEC) 24 L D-Dimer High Sensitivty (0 - 243 ng/ml) 870 H Hematology CBC w Diff NO MAN DIFF REQ WBC (4.8 - 10.8 /CUMM) 12.8 H RBC (4.20 - 5.40 /CUMM) 4.24 Hgb (12.0 - 16.0 G/DL) 12.1 Hct (37 - 47 %) 36.8 L MCV (81.0 - 99.0 FL) 86.8 MCH (27.0 - 31.0 PG) 28.5 MCHC (33.0 - 37.0 G/DL) 32.9 L RDW (11.5 - 14.5 %) 13.9 Plt Count (130 - 400 /CUMM) 311 MPV (7.4 - 10.4 FL) 5.9 L Gran % (42.2 - 75.2 %) 89.6 H Lymphocytes % (20.5 - 51.1 %) 6.8 L Monocytes % (1.7 - 9.3 %) 3.5 Eosinophils % (0 - 5 %) 0.1 Basophils % (0.0 - 2.0 %) 0 Absolute Granulocytes (1.4 - 6.5 /CUMM) 11.4 H Absolute Lymphocytes (1.2 - 3.4 /CUMM) 0.9 L Absolute Monocytes (0.10 - 0.60 /CUMM) 0.4 Absolute Eosinophils (0.0 - 0.7 /CUMM) 0 Absolute Basophils (0.0 - 0.2 /CUMM) 0 Diagnostic Data EKG Results ECG tracing was personally reviewed and shows sinus rhythm at 84 bpm with right bundle branch block and nonspecific T-wave abnormality CXR Results No acute cardiopulmonary findings. No significant change. Other Results Telemetry tracings were personally reviewed and shows sinus rhythm Assessment/Plan Assessment/Plan 1. Acute renal failure of unclear etiology 2. Syncope 3. Minimal troponin elevation due to acute renal failure 4. Known right bundle branch block 5. COPD 6. History of non-small cell lung cancer 7. History of hypertension/hyperlipidemia/nonobstructive carotid stenosis 8. History of mild cardiomyopathy in the past with possible infarct versus artifact on nuclear stress test Acute renal failure is of unclear etiology; she reports no heavy NSAID use and no obvious reason for acute hypovolemia. Telemetry shows no evidence of significant arrhythmia. Minimal troponin elevation likely due to the renal failure. Echocardiogram is pending. Pulmonary embolism is unlikely. The right bundle branch block on ECG is not a new finding for her. Continue on telemetry. Recommend nephrology consultation. Twan Whitfield MD [facility] Consult Acknowledgment - Thank you for your consult request.
[2017-09-19] MEDS ORDERED: BUSPIRONE HCL30 M1 PO (12:13)
[2017-09-19] MEDS ORDERED: METOLAZONE2.5 M1 PO (12:14)
[2017-09-19] MEDS ORDERED: PROCHLORPERAZIN10 MG PO (12:15)
[2017-09-19] MEDS ORDERED: METFORMIN HCL1000 M2 PO (12:16)
[2017-09-19] MEDS ORDERED: NEURONTIN100 M1 PO (12:16)
[2017-09-19] MEDS ORDERED: SINEMET 25-1001 EACH PO (12:18)
[2017-09-19] MEDS ORDERED: PRAVASTATIN SOD40 M2 PO (12:20)
[2017-09-19] MEDS ORDERED: PROAIR HFA8.5 GM INH (12:23)
[2017-09-19] MEDS ORDERED: ROPINIROLE HCL1 MG PO (12:23)
--- NOTE | 2017-09-19 12:24 | PN- Att Addend ---
See Addendum Attending Addendum Attending Brief Note 77-year-old female with PMH of COPD/HTN/Parkinson disease/non small cell lung cancer comes with syncope. She has chronic lower extremity edema and orthopnea. Labs and imaging noted. Cr rising. EKG RBBB. PE General: no apparent distress. Alert. Cvs Normal intensity S1/S2. Regular Respiratory: Lungs clear to auscultation bilaterally. Abdomen: Soft Skin: warm Neurologic: no focal deficit 1. Syncope 2. Elevated cardiac enzymes 2/2 CHAS 3. Rule out pulmonary embolism 4. Leukocytosis 5. History of Non-small cell lung cancer S/P chemotherapy and radiation, COPD, HTN, HLD, Parkinson's disease, anxiety. Continuous telemetry monitoring, flat Serial troponins, obtain ECHO, Cardiology consulted, f/u VQ scan, f/u Blood cultures, LA wnl. Continue gentle hydration with normal saline, confirm meds. Obtain nephrology and neurology consult. Cont plan of care as per admitting physician. Avoid nephrotxic drugs.
[2017-09-19] MEDS ORDERED: TRAMADOL HCL50 M1 PO (12:38)
--- NOTE | 2017-09-19 13:01 | NUCLEAR MEDICINE REPORT ---
EXAMINATION: PULMONARY VENTILATION PERFUSION STUDY CLINICAL INFORMATION: Sinus tachycardia, syncope. COMPARISON: No previous lung scan is available for comparison. Radiographs of the chest dated 09/18/2017 are available for comparison. CT scan of the chest dated 02/25/2017 and of the abdomen and pelvis dated 09/18/2017 are available for comparison. TECHNIQUE: Serial gamma scintillation camera images were obtained over the posterior chest during the single breath, equilibrium rebreathing and washout of 15.9 mCi Xe 133 gas. The patient then received 4 mCi Tc-99m MAA intravenously and a 6-view perfusion study was performed. FINDINGS: Ventilation images: On the single breath and equilibrium images there is markedly diminished activity in the right lung, with significant ventilatory activity visualized only in the right lung apex. There is homogeneous distribution of activity in the left lung. During the washout phase there is no abnormal retention in the lungs. Mild xenon retention in the liver is present and likely due to some degree of hepatic steatosis.. Perfusion images: There is markedly diminished activity in the right lung diffusely. This is in a pattern that is very well matched to the ventilation abnormalities described above. No significant perfusion abnormalities are present in the left lung. The chest radiographs dated 09/18/2017 show chronic opacification of the right mid and lower lung [place] in a pattern that is well matched to the ventilation and perfusion abnormalities abnormalities described above. IMPRESSION: Very low probability of pulmonary embolism. Markedly diminished ventilation and perfusion throughout most of the right lung with some sparing in the right lung apex is noted, as described above.
[2017-09-19 14:46] VITALS: BP 162/80
--- NOTE | 2017-09-19 15:20 | Cons- Nephrology ---
General Information and HPI Consulting Request Date of Consult: 09/19/17 Requested By: Андрей Ta MD Reason for Consult: CHAS Source of Information: patient, old records Exam Limitations: no limitations History of Present Illness: 77-year-old woman admitted yesterday with weakness and presyncope which rapidly resolved. There was no chest pain and troponin peaked at 0.14. Blood pressures were relatively low at time of admission but have since normalized. VQ scan showed very low probability for pulmonary embolism. I am being asked to see her because of an elevated serum creatinine of 2.3 yesterday falling slightly to 2.1 today. Her creatinine on 09/15/2017 was 1.6 and the only other data available in [facility] R creatinine levels ranging from 0.7-0.9 from 2012 through November 2013. The patient has had some nausea and dry heaves for one day several days ago perhaps with some decrease in her intake since then but in general she feels that she did not get dehydrated. There is been no actual vomiting and no diarrhea. No fever or chills. Her outpatient medications included losartan but no diuretic and she denies any exposure to NSAIDs. Since admission, there is been no exposure to parenteral contrast. CT scan without contrast showed cortical thinning in both kidneys suggesting some element of CKD. Past medical history is positive for hypertension, hyperlipidemia, COPD, mild cardiomyopathy, right bundle branch block, non-small cell lung CA treated with chemotherapy/radiation and nonobstructive carotid stenosis. Medications: See below Allergies no known drug allergies Family history: Negative for any known kidney disease in parents, siblings or other family members Social history: Lives at home with her of over 50 years, retired bank employee, stop smoking cigarettes many years ago, no history of alcohol or drug abuse. Allergies/Medications Allergies: Coded Allergies: NO KNOWN ALLERGIES (10/20/13) Home Med List: Albuterol Sulfate (Proair Hfa) 90 MCG HFA.AER.AD 2 PUF INH Q4-6 PRN PRN SHORTNESS OF BREATH (Reported) Buspirone HCl 15 MG TABLET 1 TAB PO QAM MENTAL HEALTH (Reported) Buspirone HCl 30 MG TABLET 1 TAB PO QPM MENTAL HEALTH (Reported) Carbidopa/Levodopa (Sinemet 25-100 MG Tablet) 25 MG-100 MG TABLET 1 TAB PO TID PARKINSONISM (Reported) Gabapentin (Neurontin) 100 MG CAPSULE 1 CAP PO TID . (Reported) Losartan Potassium 50 MG TABLET 1 TAB PO DAILY BP (Reported) Metformin HCl (Metformin HCl ER) 1,000 MG TAB.ER.24 1 TAB PO DAILY DM ( Reported) Metolazone 2.5 MG TABLET 1 TAB PO QFRIDAY . (Reported) Metoprolol Succinate 50 MG TAB.ER.24H 1 TAB PO DAILY HEART/BP (Reported) Pravastatin Sodium 40 MG TABLET 1 TAB PO DAILY HLD (Reported) Prochlorperazine Maleate 10 MG TABLET 1 TAB PO Q6 PRN NAUSEA/VOMITING ( Reported) Ropinirole HCl 1 MG TABLET 1 TAB PO Q1400, 2100 MENTAL HEALTH (Reported) Tramadol HCl 50 MG TABLET 1 TAB PO TIDPRN PRN PAIN (Reported) Umeclidinium Era (Incruse Ellipta) 62.5 MCG/ACTUATION BLST.W.DEV 1 PUFF INH DAILY COPD (Reported) Venlafaxine HCl (Venlafaxine HCl ER) 75 MG CAP.ER.24H 1 CAP PO DAILY MENTAL HEALTH (Reported) Review of Systems Review of Systems: Gen.: Appetite good, no weight loss or weight gain Skin: No rash or jaundice HEENT: No visual or hearing disturbances, no discharge Cardiopulmonary: No shortness of breath, cough, chest pain, orthopnea GI: No nausea, vomiting, abdominal pain, diarrhea : No dysuria, hematuria or other symptoms referable to the urinary tract Musculoskeletal: No arthralgias, arthritis, myalgias; there has been weakness ( see HPI) Neuro: + weakness with transient altered mental status (see HPI), no paresthesias Past History Travel History Traveled to [place] past 21 day No Medical History Cardiovascular: hypertension, hyperlipidemia, hypertension Endocrine: borderline diabetes Surgical History Surgical History: non-contributory Family History Relations & Conditions If Any: FATHER (cancer pancreas). Relation not specified for: FH: Alzheimers disease FH: bipolar disorder FH: cancer FH: heart attack FHx: stroke Hypertension Psychosocial History Where Do You Live? Home Services at Home: None Smoking Status: Former Smoker Exam & Diagnostic Data Vital Signs and I&O Vital Signs Date Time Temp Pulse Resp B/P B/P Pulse O2 O2 Flow FiO2 Mean Ox Delivery Rate 09/19 1446 99.0 96 20 162/80 96 Room Air 09/19 1033 Room Air 09/19 0723 97.4 94 22 130/70 98 Room Air 09/19 0308 95 Room Air 09/19 0308 97.2 89 22 110/60 95 Room Air 09/19 0252 95 Room Air 09/19 0103 98.0 81 16 110/69 99 09/18 2238 98.7 80 18 108/57 98 Room Air 09/188 98.7 80 18 107/58 97 Room Air 09/18 1940 89 16 113/64 96 Room Air Intake & Output 09/19 Intake Total 0 Output Total 0 Balance 0 Intake, Oral 0 Output, Urine 0 Patient 175 lb Weight Physical Exam: General: Well-developed, very pleasant white female in NAD Skin: No rash or jaundice HEENT: Conjunctivae pink, sclerae anicteric, mucous membranes moist Neck: Without masses or thyromegaly, no supraclavicular or cervical adenopathy, there is a well-healed transverse surgical scar just above the sternal notch Chest: Clear to P&A Heart: Regular rate and rhythm without S3 or rub Abdomen: Soft and nontender without palpable masses or organomegaly Extremities: Without cyanosis; there is trace to 1+ edema at the left ankle Neuro: Awake and alert, no focal findings, no asterixis or myoclonus Assessment/Plan Assessment/Recommendations Assessment: 77-year-old woman admitted yesterday with weakness and a syncopal or presyncopal episode with associated mild transient hypotension. Serum creatinine is elevated with a history of normal creatinine levels several years ago. CT scan of the abdomen suggests the presence of chronic kidney disease without an obstructive component. My assessment is that the clinical picture is most consistent with some element of CKD with superimposed CHAS secondary to subclinical volume contraction. This is supported by the finding of a very high urine specific gravity on admission with a low fractional excretion of sodium. Recommendations: 1. Spot urine for protein to creatinine ratio 2. Would restart IV fluids for another 24 hours using half-normal saline at 100 mL per hour and reassess in a.m. tomorrow 3. Monitor intake and output, weights, chemistries daily Thank you. Will follow-up.
--- NOTE | 2017-09-19 16:10 | ECHOCARDIOGRAM REPORT ---
SOHAN PATE Age: 77 : 1940 Gender: F Exam Date: 09/19/2017 10:00 Exam Location: 1 [address] Ht (in): 62 Wt (lb): 175 BSA: 1.90 BP: 130 / 70 Ordering Physician: Marv Mancia MD Referring Physician: Marv Mancia MD Technologist: Ricardo Hernandez [facility] Room Number: 180-1 Indications: Arrhythmia Rhythm: Technical Quality: Technically difficult study FINDINGS Left Ventricle Left ventricular cavity size normal. Left ventricular wall thickness mildly increased. No obvious regional wall motion abnormalities. Left ventricular ejection fraction is estimated at 50 %. Right Ventricle Right ventricle not well visualized, grossly normal. Right Atrium Normal right atrial size. Left Atrium Left atrial size at the upper limits of normal. Mitral Valve Mild mitral annular calcification. Trace mitral regurgitation. Aortic Valve Aortic valve not well visualized, grossly normal. Tricuspid Valve Tricuspid valve not well visualized, grossly normal. Trace tricuspid regurgitation. Unable to estimate the right ventricular systolic pressure. Pulmonic Valve Pulmonic valve not well visualized. Pericardium No pericardial effusion. Great Vessels Aortic root and proximal ascending aorta not well visualized. CONCLUSIONS Technically difficult study. Left ventricular cavity size normal. Left ventricular wall thickness mildly increased. No obvious regional wall motion abnormalities. Left ventricular ejection fraction is estimated at 50 %. Right ventricle not well visualized, grossly normal. Left atrial size at the upper limits of normal. Unable to estimate the right ventricular systolic pressure. No pericardial effusion. Joe Whitfield M.D. (Electronically Signed) Final Date: 19 September 2017 16:09 MEASUREMENTS (Male / Female) Normal Values 2D ECHO LV Diastolic Diameter PLAX 4.7 cm 4.2 - 5.9 / 3.9 - 5.3 cm LV Systolic Diameter PLAX 2.5 cm 2.1 - 4.0 cm LV Fractional Shortening PLAX 46.8 % 25 - 46 % LV Ejection Fraction 2D Teich 78.2 % IVS Diastolic Thickness 1.4 cm LVPW Diastolic Thickness 1.4 cm LV Relative Wall Thickness 0.6 LVOT Diameter 1.8 cm Aortic Root Diameter 2.9 cm LA Systolic Diameter LX 2.8 cm 3.0 - 4.0 / 2.7 - 3.8 cm LA Volume 55.0 cm 18 - 58 / 22 - 52 cm DOPPLER AV Peak Velocity 154.0 cm/s AV Peak Gradient 9.5 mmHg AV Mean Velocity 105.0 cm/s AV Mean Gradient 5.0 mmHg AV Velocity Time Integral 30.7 cm LVOT Peak Velocity 101.0 cm/s LVOT Peak Gradient 4.1 mmHg LVOT Mean Velocity 66.7 cm/s LVOT Mean Gradient 2.0 mmHg LVOT Velocity Time Integral 21.3 cm LVOT Stroke Volume 54.2 cm AV Area Cont Eq vti 1.8 cm AV Area Cont Eq pk 1.7 cm MV Peak Velocity 132.0 cm/s MV Peak Gradient 7.0 mmHg MV Mean Velocity 70.2 cm/s MV Mean Gradient 3.0 mmHg Mitral E Point Velocity 135.0 cm/s MV PHT Velocity 136.0 cm/s MV Deceleration [facility] 756.0 cm/s MV Pressure Half Time 54.0 ms MV Area PHT 4.1 cm MV Deceleration Time 130.0 ms LV E' Lateral Velocity 8.9 cm/s Mitral E to LV E' Lateral Ratio 15.2 LV E' Septal Velocity 7.2 cm/s Mitral E to LV E' Septal Ratio 18.7
[2017-09-19 17:13] VITALS: BP 156/88
[2017-09-20] VITALS: BP 160/92; BP 178/98
[2017-09-20 06:30] VITALS: BP 150/90
[2017-09-20 08:34] LABS: ABSOLUTE BASOPHIL COUNT 0 /CUMM (0.0-0.2); ABSOLUTE EOSINOPHIL COUNT 0 /CUMM (0.0-0.7); ABSOLUTE GRANULOCYTE CT 9.8 /CUMM (1.4-6.5); ABSOLUTE LYMPH COUNT 0.9 /CUMM (1.2-3.4); ABSOLUTE MONOCYTE COUNT 0.4 /CUMM (0.10-0.60); BASOPHIL % 0.2 % (0.0-2.0); EOSINOPHIL % 0.2 % (0-5); GRANULOCYTE % 87.6 % (42.2-75.2); MEAN CORPUSCULAR HGB 29.1 PG (27.0-31.0); MEAN CORPUSCULAR HGB CONC 33.8 G/DL (33.0-37.0); MEAN CORPUSCULAR VOLUME 85.9 FL (81.0-99.0); MEAN PLATELET VOLUME 6.6 FL (7.4-10.4); PLATELET COUNT 240 /CUMM (130-400); RBC DISTRIBUTION WIDTH 13.8 % (11.5-14.5); WHITE BLOOD CELL COUNT 11.1 /CUMM (4.8-10.8)
--- NOTE | 2017-09-20 08:50 | PN- Housestaff ---
Blaire BENITEZ,Mi 09/20/17 0850: Subjective Follow-up For: syncope troponin Tele-Events Since Last Visit: nsr 90-104 Subjective: patient states that overall she feels good. Does state however that she is not hungry and usually doesnt eat much to begin with. denies headache cp but states that she is a little short of breath because she is not on her home 2L of O2. Review of Systems Constitutional: Reports: no symptoms. Respiratory: Reports: short of breath. Objective Last 24 Hrs of Vital Signs/I&O Vital Signs Date Time Temp Pulse Resp B/P B/P Pulse O2 O2 Flow FiO2 Mean Ox Delivery Rate 09/20 2116 98.8 101 18 150/80 99 Nasal 2.0L Cannula 09/20 1442 97.8 98 20 182/104 98 Nasal 2.0L Cannula 09/20 0630 98.6 96 16 150/90 93 Intake & Output 09/21 0800 09/21 0000 09/20 1600 Intake Total 60 1100 Output Total Balance 60 1100 Intake, IV 700 Intake, Oral 60 400 Physical Exam General Appearance: Alert, Cooperative, No Acute Distress Skin: No Rashes, No Breakdown Cardiovascular: Regular Rate, Normal S1, Normal S2, No Murmurs Lungs: Clear to Auscultation, Normal Air Movement Abdomen: Normal Bowel Sounds, Soft, No Tenderness Extremities: No Clubbing, No Cyanosis, No Edema Current Medications: Current Medications Sig/Liliya Start time Last Medication Dose Route Stop Time Status Admin Acetaminophen 650 MG Q6P PRN 09/19 0130 AC PO Acetaminophen 1,000 MG Q6P PRN 09/19 0130 AC IV Atorvastatin Calcium 40 MG 1700 09/19 1700 AC 09/20 PO 1633 Buspirone HCl 30 MG QPM 09/19 2100 AC 09/20 PO 2044 Buspirone HCl 15 MG QAM 09/19 1225 AC 09/20 PO 0836 Carbidopa/Levodopa 1 TAB TID 09/19 1400 AC 09/20 PO 2044 Gabapentin 100 MG TID 09/19 1400 AC 09/20 PO 2044 Heparin Sodium 5,000 UNIT Q8 09/19 0600 AC 09/20 (Porcine) SC 2045 Losartan Potassium 50 MG DAILY 09/21 09 CAN PO Metoprolol Succinate 50 MG DAILY 09/21 0900 AC PO Oxycodone/ 1 TAB Q8P PRN 09/19 0130 AC 09/20 Acetaminophen PO 2043 Ropinirole HCl 1 MG 1400,2100 09/19 1400 AC 09/20 PO 204 Sodium Chloride 1,000 ML Q10H 09/19 1645 DC 09/20 IV 09/20 1244 0338 Venlafaxine HCl 75 MG DAILY 09/19 1227 AC 09/20 PO 0835 Last 24 Hrs of Lab/Elias Results Last 24 Hrs of Labs/Mics: Laboratory Tests 09/20/17 0637: Anion Gap 10, Estimated GFR 27 L, BUN/Creatinine Ratio 17.8, Magnesium 1.7, CBC w Diff NO MAN DIFF REQ, RBC 3.60 L, MCV 85.9, MCH 29.1, MCHC 33.8, RDW 13.8, MPV 6.6 L, Gran % 87.6 H, Lymphocytes % 8.1 L, Monocytes % 3.9, Eosinophils % 0.2, Basophils % 0.2, Absolute Granulocytes 9.8 H, Absolute Lymphocytes 0.9 L, Absolute Monocytes 0.4, Absolute Eosinophils 0, Absolute Basophils 0 Assessment/Plan Assessment: Patient is a 77-year-old female with past medical history of hypertension, hyperlipidemia, COPD, non-small cell lung cancer status post chemotherapy and radiation, anxiety presenting this admission with chief complaint of weakness and syncope. Patient was admitted to the telemetry floor for management of followin. Syncope 2. Elevated troponin, rule out ACS 3. Rule out for pulmonary embolism 4. Chronic conditions Plan: Admitted to telemetry for continuous monitoring Serial EKG and troponins- elevated troponin with V4 to V5 T-wave inversions. There was also concern of pulmonary embolism in this patient with mild JVD, syncope, clear lung exam. CTA could not be obtained due to renal failure. Next set of troponins fell. IV heparin was held off pending VQ scan results which were negative. Last night elevated BP, patient given metoprolol 25po and 5mg IV push which took it down to 160/92. Patient was then started on metoprolol 50mg daily. Cr fell from 2.1 to 1.8. Hold losartan. Patient placed on oxygen prn as she uses 2L on and off at home. Follow-up blood cultures Follow-up urine cultures Lactic acid fell from 2.6 to .7 Echo showed preserved EF and no significant valvular abnormalities. Monitor vitals Confirm home medications in the morning Diet: Heart healthy Code: Full code DVT prophylaxis: Heparin subcutaneous, Alps Problem List: 1. Elevated troponin 2. Syncope Pain Ratin Pain Location: na Pain Goal: Remain pain free Pain Plan: prn Tomorrow's Labs & Rationales: cbc bep Juma Rdz MD 09/20/17 1152: Attending MD Review Statement Attending Statement Attending MD Statement: examined this patient, discuss w/resident/PA/PEGGER, agreed w/resident/PA/PEGGER, reviewed EMR data (avail) Attending Assessment/Plan: 77-year-old female with PMH of COPD/HTN/Parkinson disease/non small cell lung cancer comes with syncope. She has chronic lower extremity edema and orthopnea. Labs and imaging noted. Cr rising. EKG RBBB. 1. Syncope - Echo shows preserved EF - No significant valvular abnormalities 2. Elevated cardiac enzymes 2/2 CHAS 3. Leukocytosis 4. CHAS - On IVF - resolving creatinine - Nephrology on board 4. History of Non-small cell lung cancer S/P chemotherapy and radiation, COPD, HTN, HLD, Parkinson's disease, anxiety
--- NOTE | 2017-09-20 14:30 | PN- Cardiology ---
Subjective Subjective: The patient is sitting comfortably in bed. No cardiac symptoms noted. Anxious for discharge. Objective Vital Signs and I&Os Vital Signs Date Time Temp Pulse Resp B/P B/P Pulse O2 O2 Flow FiO2 Mean Ox Delivery Rate 09/20 0630 98.6 96 16 150/90 93 09/20 0000 89 160/92 09/20 0000 98.9 115 20 178/98 96 09/19 2313 108 196/102 09/19 2220 108 178/98 09/19 1713 156/88 09/19 1446 99.0 96 20 162/80 96 Room Air Intake & Output 09/20 1600 09/20 0800 09/20 0000 09/19 1600 09/19 0809/19 0000 Intake Total 800 400 0 Output Total 600 0 Balance 800 400 -600 0 Intake, IV 600 400 Intake, Oral 200 0 Output, Urine 600 0 Patient 175 lb Weight Physical Exam: General Appearance: well developed/nourished, alert, awake, oriented Head: normal HEENT: Normal Neck: supple, JVP normal, carotid upstrokes normal bilaterally, no masses or thyromegaly Respiratory: chest non-tender, clear to auscultation and percussion bilaterally Cardiovascular: regular rate/rhythm, normal S1, S2, no audible murmur Abdomen: normal bowel sounds, soft, non-tender Extremities: normal inspection, no edema Vascular: Pulses are 2+ and equal bilaterally Neurologic: Grossly normal/nonfocal Current Medications: Current Medications Sig/Liliya Start time Last Medication Dose Route Stop Time Status Admin Acetaminophen 650 MG Q6P PRN 09/19 0130 AC PO Acetaminophen 1,000 MG Q6P PRN 09/19 0130 AC IV Atorvastatin Calcium 40 MG 1700 09/19 1700 AC 09/19 PO 1705 Buspirone HCl 30 MG QPM 09/19 2100 AC 09/19 PO 2112 Buspirone HCl 15 MG QAM 09/19 1225 AC 09/20 PO 0836 Carbidopa/Levodopa 1 TAB TID 09/19 1400 AC 09/20 PO 1340 Gabapentin 100 MG TID 09/19 1400 AC 09/20 PO 1340 Heparin Sodium 5,000 UNIT Q8 09/19 0600 AC 09/20 (Porcine) SC 1340 Losartan Potassium 50 MG DAILY 09/21 09 CAN PO Metoprolol Succinate 50 MG DAILY 09/21 0900 AC PO Metoprolol Tartrate 5 MG ONCE ONE 09/19 2315 DC 09/19 IV 09/19 2316 2313 Metoprolol Tartrate 25 MG ONCE ONE 09/19 2215 DC 09/19 PO 09/19 221 2220 Oxycodone/ 1 TAB Q8P PRN 09/19 0130 AC Acetaminophen PO Patient Medication 1 ED ONE ONE 09/19 1545 DC Teaching ED 09/19 1546 Ropinirole HCl 1 MG 1400,2100 09/19 1400 AC 09/20 PO 1340 Sodium Chloride 1,000 ML Q10H 09/19 1645 DC 09/20 IV 09/20 1244 0338 Sodium Chloride 1,000 ML Q13H 09/19 0815 DC 09/19 IV 09/19 2114 1016 Venlafaxine HCl 75 MG DAILY 09/19 1227 AC 09/20 PO 0835 Results Last 48 Hrs of Labs/Mics: Laboratory Tests 09/20/17 0637: Anion Gap 10, Estimated GFR 27 L, BUN/Creatinine Ratio 17.8, Magnesium 1.7, CBC w Diff NO MAN DIFF REQ, RBC 3.60 L, MCV 85.9, MCH 29.1, MCHC 33.8, RDW 13.8, MPV 6.6 L, Gran % 87.6 H, Lymphocytes % 8.1 L, Monocytes % 3.9, Eosinophils % 0.2, Basophils % 0.2, Absolute Granulocytes 9.8 H, Absolute Lymphocytes 0.9 L, Absolute Monocytes 0.4, Absolute Eosinophils 0, Absolute Basophils 0 09/19/17 0745: Urine Color YEL, Urine Clarity HAZY H, Urine pH 6.0, Ur Specific [place] >= 1.030, Urine Protein 100 H, Urine Ketones NEG, Urine Nitrite NEG, Urine Bilirubin NEG, Urine Urobilinogen 0.2, Ur Leukocyte Esterase SMALL H, Ur Microscopic SEDIMENT EXAMINED, Urine RBC 3-5, Urine WBC 25-50 H, Ur Epithelial Cells OCCAS, Urine Bacteria RARE H, Granular Casts FEW H, Urine Hemoglobin SMALL H, Urine Glucose NEG 09/19/17 0745: Urine Osmolality 408, Ur Random Creatinine 138.1, Ur Random Sodium 36, Ur Random Potassium 50.5, Fraction Sodium Excret 0.4 09/19/17 0715: Lactic Acid 0.7 09/19/17 0715: Anion Gap 10, Estimated GFR 23 L, BUN/Creatinine Ratio 13.3, Hemoglobin A1c 5.4 , Troponin I 0.13 *H, CBC w Diff NO MAN DIFF REQ, RBC 3.92 L, MCV 86.7, MCH 29.0, MCHC 33.4, RDW 13.9, MPV 6.1 L, Gran % 92.0 H, Lymphocytes % 6.3 L, Monocytes % 1.7, Eosinophils % 0, Basophils % 0, Absolute Granulocytes 10.5 H, Absolute Lymphocytes 0.7 L, Absolute Monocytes 0.2, Absolute Eosinophils 0, Absolute Basophils 0 09/19/17 0157: Lactic Acid 0.9 09/18/17 2325: Troponin I 0.14 *H 09/18/17 1946: Anion Gap 15, Estimated GFR 21 L, BUN/Creatinine Ratio 11.7, Glucose 137 H, Serum Osmolality 297 H, Lactic Acid 2.6 H, Calcium 9.8, Total Bilirubin 0.6, AST 15, ALT 10, Alkaline Phosphatase 59, Troponin I 0.07, [id number] Pept 05197 H, Total Protein 7.0, Albumin 4.1, Globulin 2.9, Albumin/Globulin Ratio 1.4, Lipase 517 H, PT 12.2, INR 1.12, APTT 24 L, D-Dimer High Sensitivty 870 H, CBC w Diff NO MAN DIFF REQ, RBC 4.24, MCV 86.8, MCH 28.5, MCHC 32.9 L, RDW 13.9, MPV 5.9 L, Gran % 89.6 H, Lymphocytes % 6.8 L, Monocytes % 3.5, Eosinophils % 0.1, Basophils % 0, Absolute Granulocytes 11.4 H, Absolute Lymphocytes 0.9 L, Absolute Monocytes 0.4, Absolute Eosinophils 0, Absolute Basophils 0 Assessment/Plan Assessment/Plan Assessment: 1. Acute renal failure of unclear etiology 2. Syncope 3. Minimal troponin elevation due to acute renal failure 4. Known right bundle branch block 5. COPD 6. History of non-small cell lung cancer 7. History of hypertension/hyperlipidemia/nonobstructive carotid stenosis 8. History of mild cardiomyopathy in the past with possible infarct versus artifact on nuclear stress test Recommendations: -Creatinine slowly improving. 1.8 today -Echocardiogram pending -Continue to monitor on telemetry pending echocardiogram review -Otherwise continue as per the medical team Continue telemetry? Yes
[2017-09-20 14:42] VITALS: BP 182/104
[2017-09-20 21:17] VITALS: BP 150/80
[2017-09-21 07:00] VITALS: BP 170/96
[2017-09-21 07:50] LABS: ABSOLUTE BASOPHIL COUNT 0 /CUMM (0.0-0.2); ABSOLUTE EOSINOPHIL COUNT 0.1 /CUMM (0.0-0.7); ABSOLUTE GRANULOCYTE CT 9.1 /CUMM (1.4-6.5); ABSOLUTE LYMPH COUNT 0.8 /CUMM (1.2-3.4); ABSOLUTE MONOCYTE COUNT 0.6 /CUMM (0.10-0.60); BASOPHIL % 0.2 % (0.0-2.0); EOSINOPHIL % 0.8 % (0-5); GRANULOCYTE % 85.3 % (42.2-75.2); MEAN CORPUSCULAR HGB 29.1 PG (27.0-31.0); MEAN CORPUSCULAR HGB CONC 33.4 G/DL (33.0-37.0); MEAN CORPUSCULAR VOLUME 86.9 FL (81.0-99.0); MEAN PLATELET VOLUME 6.4 FL (7.4-10.4); PLATELET COUNT 266 /CUMM (130-400); RBC DISTRIBUTION WIDTH 13.1 % (11.5-14.5); RED BLOOD CELL CT 4.15 /CUMM (4.20-5.40); WHITE BLOOD CELL COUNT 10.6 /CUMM (4.8-10.8)
[2017-09-21 08:47] LABS: HEMATOCRIT 36.1 % (37-47)
[2017-09-21 14:18] VITALS: BP 178/100
--- NOTE | 2017-09-21 15:20 | PN- Cardiology ---
Subjective Subjective: Doing well. No cardiac symptoms. Objective Vital Signs and I&Os Vital Signs Date Time Temp Pulse Resp B/P B/P Pulse O2 O2 Flow FiO2 Mean Ox Delivery Rate 09/21 1418 98.3 98 20 178/100 96 Room Air 09/21 1310 104 142/88 09/21 0821 102 170/96 09/21 0800 Nasal 2.0L Cannula 09/21 0700 98.2 102 20 170/96 100 09/21 0000 Nasal 2.0L Cannula 09/20 2116 98.8 101 18 150/80 99 Nasal 2.0L Cannula Intake & Output 09/21 1600 09/21 0800 09/21 0000 09/20 1600 09/20 0800 09/20 0000 Intake Total 550 60 60 1100 800 400 Output Total Balance 550 60 60 1100 800 400 Intake, IV 700 600 400 Intake, Oral 550 60 60 400 200 Output, Urine Physical Exam: General Appearance: well developed/nourished, alert, awake, oriented Head: normal HEENT: Normal Neck: supple, JVP normal, carotid upstrokes normal bilaterally, no masses or thyromegaly Respiratory: chest non-tender, clear to auscultation and percussion bilaterally Cardiovascular: regular rate/rhythm, normal S1, S2, no audible murmur Abdomen: normal bowel sounds, soft, non-tender Extremities: normal inspection, no edema Vascular: Pulses are 2+ and equal bilaterally Neurologic: Grossly normal/nonfocal Current Medications: Current Medications Sig/Liliya Start time Last Medication Dose Route Stop Time Status Admin Acetaminophen 650 MG .STK-MED ONE 09/21 0651 DC PO 09/21 0652 Acetaminophen 650 MG Q6P PRN 09/19 0130 AC 09/21 PO 0657 Acetaminophen 1,000 MG Q6P PRN 09/19 0130 AC IV Atorvastatin Calcium 40 MG 1700 09/19 1700 AC 09/20 PO 1633 Buspirone HCl 30 MG QPM 09/19 2100 AC 09/20 PO 2044 Buspirone HCl 15 MG QAM 09/19 1225 AC 09/21 PO 0820 Carbidopa/Levodopa 1 TAB TID 09/19 1400 AC 09/21 PO 1307 Gabapentin 100 MG TID 09/19 1400 AC 09/21 PO 1307 Heparin Sodium 5,000 UNIT Q8 09/19 0600 AC 09/20 (Porcine) SC 2045 Metoprolol Succinate 50 MG DAILY 09/21 0900 DC 09/21 PO 0821 Metoprolol Tartrate 25 MG BID 09/22 0900 AC PO Metoprolol Tartrate 25 MG TID 09/21 1400 AC 09/21 PO 09/22 0000 1310 Oxycodone/ 1 TAB Q8P PRN 09/19 0130 AC 09/20 Acetaminophen PO 2044 Ropinirole HCl 1 MG 1400,2100 09/19 1400 AC 09/21 PO 1307 Venlafaxine HCl 75 MG DAILY 09/19 1227 AC 09/21 PO 0820 Results Last 48 Hrs of Labs/Mics: Laboratory Tests 09/21/17 0605: Anion Gap 12, Estimated GFR 37 L, BUN/Creatinine Ratio 18.6, CBC w Diff NO MAN DIFF REQ, RBC 4.15 L, MCV 86.9, MCH 29.1, MCHC 33.4, RDW 13.1, MPV 6.4 L, Gran % 85.3 H, Lymphocytes % 7.7 L, Monocytes % 6.0, Eosinophils % 0.8, Basophils % 0.2, Absolute Granulocytes 9.1 H, Absolute Lymphocytes 0.8 L, Absolute Monocytes 0.6, Absolute Eosinophils 0.1, Absolute Basophils 0 09/20/17 0637: Anion Gap 10, Estimated GFR 27 L, BUN/Creatinine Ratio 17.8, Magnesium 1.7, CBC w Diff NO MAN DIFF REQ, RBC 3.60 L, MCV 85.9, MCH 29.1, MCHC 33.8, RDW 13.8, MPV 6.6 L, Gran % 87.6 H, Lymphocytes % 8.1 L, Monocytes % 3.9, Eosinophils % 0.2, Basophils % 0.2, Absolute Granulocytes 9.8 H, Absolute Lymphocytes 0.9 L, Absolute Monocytes 0.4, Absolute Eosinophils 0, Absolute Basophils 0 Assessment/Plan Assessment/Plan Assessment: 1. Acute renal failure of unclear etiology 2. Syncope 3. Minimal troponin elevation due to acute renal failure 4. Known right bundle branch block 5. COPD 6. History of non-small cell lung cancer 7. History of hypertension/hyperlipidemia/nonobstructive carotid stenosis 8. History of mild cardiomyopathy in the past with possible infarct versus artifact on nuclear stress test Recommendations: -Creatinine slowly improving. 1.8 today -Echocardiogram pending -Continue to monitor on telemetry pending echocardiogram review -Otherwise continue as per the medical team Continue telemetry? Yes
--- NOTE | 2017-09-21 16:02 | PN- Gen Med ---
Assessment/Plan Medical Problem List: 1. Syncope 2. Acute kidney injury 3. SMALL CELL LUNG CANCER 4. Hypertension 5. Elevated troponin Plan: 77-year-old female with PMH of COPD/HTN/Parkinson disease/non small cell lung cancer comes with syncope. She has chronic lower extremity edema and orthopnea. Labs and imaging noted. Creatinine down trending 1. Syncope - Echo shows preserved EF - No significant valvular abnormalities - no clear etiology identified 2. Elevated cardiac enzymes 2/2 CHAS - Echocardiogram pending 3. Leukocytosis - resolved 4. CHAS - resolving 5. History of Non-small cell lung cancer S/P chemotherapy and radiation, COPD, HTN, HLD, Parkinson's disease, anxiety 6. Elevated blood pressure - added metoprolol 25 mg thrice a day for control of blood pressure. Holding Home Toprol XL Patient is eager to get discharged. For discharge in the morning once blood pressure is better controlled Subjective Follow-up For: Syncope Complaints: no complaints Review of Systems Constitutional: Reports: no symptoms. Cardiovascular: Reports: no symptoms. Respiratory: Reports: no symptoms. Gastrointestinal: Reports: no symptoms. Neurological/Psychological: Reports: no symptoms. Objective Last 24 Hrs of Vital Signs/I&O Vital Signs Date Time Temp Pulse Resp B/P B/P Pulse O2 O2 Flow FiO2 Mean Ox Delivery Rate 09/21 1418 98.3 98 20 178/100 96 Room Air 09/21 1310 104 142/88 09/21 0821 102 170/96 09/21 0800 Nasal 2.0L Cannula 09/21 0700 98.2 102 20 170/96 100 09/21 0000 Nasal 2.0L Cannula 09/207 98.8 101 18 150/80 99 Nasal 2.0L Cannula Intake & Output 09/21 1600 09/21 0800 09/21 0000 Intake Total 550 60 60 Output Total Balance 550 60 60 Intake, Oral 550 60 60 Output, Urine Physical Exam General Appearance: Alert, Oriented X3 Other Physical Findings: General Appearance: Alert, Cooperative, no acute Distress Skin: No Rashes, No Breakdown Cardiovascular: Regular Rate, Normal S1, Normal S2, No murmurs Lungs: Clear to Auscultation, Normal Air Movement Abdomen: Normal Bowel Sounds, Soft, No Tenderness Extremities: No Clubbing, No Cyanosis, No Edema Current Medications: Current Medications Sig/Liliya Start time Last Medication Dose Route Stop Time Status Admin Acetaminophen 650 MG .STK-MED ONE 09/21 0651 DC PO 09/21 0652 Acetaminophen 650 MG Q6P PRN 09/19 0130 AC 09/21 PO 0657 Acetaminophen 1,000 MG Q6P PRN 09/19 0130 AC IV Atorvastatin Calcium 40 MG 1700 09/19 1700 AC 09/20 PO 1633 Buspirone HCl 30 MG QPM 09/19 2100 AC 09/20 PO 2044 Buspirone HCl 15 MG QAM 09/19 1225 AC 09/21 PO 0820 Carbidopa/Levodopa 1 TAB TID 09/19 1400 AC 09/21 PO 1307 Gabapentin 100 MG TID 09/19 1400 AC 09/21 PO 1307 Heparin Sodium 5,000 UNIT Q8 09/19 0600 AC 09/20 (Porcine) SC 2045 Metoprolol Succinate 50 MG DAILY 09/21 0900 DC 09/21 PO 0821 Metoprolol Tartrate 25 MG BID 09/22 0900 AC PO Metoprolol Tartrate 25 MG TID 09/21 1400 AC 09/21 PO 09/22 0000 1310 Oxycodone/ 1 TAB Q8P PRN 09/19 0130 AC 09/20 Acetaminophen PO 204 Ropinirole HCl 1 MG 1400,2100 09/19 1400 AC 09/21 PO 1307 Venlafaxine HCl 75 MG DAILY 09/19 1227 AC 09/21 PO 0820 Last 24 Hrs of Labs/Mics: Laboratory Tests 09/21/17 0605: Anion Gap 12, Estimated GFR 37 L, BUN/Creatinine Ratio 18.6, CBC w Diff NO MAN DIFF REQ, RBC 4.15 L, MCV 86.9, MCH 29.1, MCHC 33.4, RDW 13.1, MPV 6.4 L, Gran % 85.3 H, Lymphocytes % 7.7 L, Monocytes % 6.0, Eosinophils % 0.8, Basophils % 0.2, Absolute Granulocytes 9.1 H, Absolute Lymphocytes 0.8 L, Absolute Monocytes 0.6, Absolute Eosinophils 0.1, Absolute Basophils 0
[2017-09-21 22:43] VITALS: BP 150/86
[2017-09-22 06:51] VITALS: BP 160/98
--- NOTE | 2017-09-22 07:47 | PN- Housestaff ---
Richard BENITEZ,Benedicto 09/22/17 0747: Subjective Follow-up For: SYNCOPE; CHAS Complaints: no complaints Tele-Events Since Last Visit: sinus rhythm Subjective: I followed up and examined the patient today. She is resting comfortably in bed , not in distress, does not offer any complaints either. Vital signs stable, no nursing issues reported. Review of Systems Constitutional: Reports: no symptoms. Objective Last 24 Hrs of Vital Signs/I&O Vital Signs Date Time Temp Pulse Resp B/P B/P Pulse O2 O2 Flow FiO2 Mean Ox Delivery Rate 09/22 0836 68 160/98 09/22 0800 94 Nasal 2.0L Cannula 09/22 0651 98.2 68 18 160/98 98 Nasal 2.0L Cannula 09/22 0000 Nasal 2.0L Cannula 09/21 2243 98.3 71 18 150/86 99 09/21 202 82 Intake & Output 09/22 1600 09/22 0800 09/22 0000 Intake Total 100 470 Output Total Balance 100 470 Intake, Oral 100 470 Patient 74.899 kg Weight Physical Exam General Appearance: Alert, Oriented X3, Cooperative, No Acute Distress, obese Skin Temp/Moisture Exam: Warm/Dry Sepsis Skin Exam (color): Normal for Ethnicity HEENT: Atraumatic, PERRLA, EOMI, Mucous Membr. moist/pink Cardiovascular: Regular Rate, Normal S1, Normal S2, No Murmurs Lungs: Clear to Auscultation, Normal Air Movement Abdomen: Normal Bowel Sounds, Soft, No Tenderness Neurological: grossly intact Current Medications: Current Medications Sig/Liliya Start time Last Medication Dose Route Stop Time Status Admin Acetaminophen 650 MG Q6P PRN 09/19 0130 DCD 09/21 PO 0657 Acetaminophen 1,000 MG Q6P PRN 09/19 0130 DCD IV Atorvastatin Calcium 40 MG 1700 09/19 1700 DCD 09/21 PO 1723 Buspirone HCl 30 MG QPM 09/19 2100 DCD 09/21 PO 2022 Buspirone HCl 15 MG QAM 09/19 1225 DCD 09/22 PO 0836 Carbidopa/Levodopa 1 TAB TID 09/19 1400 DCD 09/22 PO 0836 Gabapentin 100 MG TID 09/19 1400 DCD 09/22 PO 0836 Heparin Sodium 5,000 UNIT Q8 09/19 0600 DCD 09/22 (Porcine) SC 0510 Metoprolol Tartrate 25 MG BID 09/22 0900 DCD 09/22 PO 0836 Metoprolol Tartrate 25 MG TID 09/21 1400 DC 09/21 PO 09/22 0000 2022 Oxycodone/ 1 TAB Q8P PRN 09/19 0130 DCD 09/20 Acetaminophen PO 2043 Potassium Chloride 80 MEQ ONCE ONE 09/21 1930 DC 09/21 PO 09/21 Ropinirole HCl 1 MG 1400,2100 09/19 1400 DCD 09/21 PO 2021 Venlafaxine HCl 75 MG DAILY 09/19 1227 DCD 09/22 PO 0836 Last 24 Hrs of Lab/Elias Results Last 24 Hrs of Labs/Mics: Laboratory Tests 09/22/17 0625: Anion Gap 10, Estimated GFR 29 L, BUN/Creatinine Ratio 17.1 Assessment/Plan Assessment: 77-year-old female with past medical history of COPD not on oxygen, mild cardiomyopathy, venous insufficiency, right bundle branch block, ex-smoker (quit 8yrs) non-small cell lung cancer status post chemotherapy/radiation 8 yrs ago, nonobstructive carotid stenosis, hypertension, hyperlipidemia, was brought in to the emergency for worsening weakness, fatigue since past 2 days, and at the triage station she "fainted" without any other symptoms. She does NOT remember any of this herself. She has been feeling well all this time in the hospital and does nto have any complaints. Patient is currently admitted in the telemetry be floor for the management of following issues: #Syncope Given patient's history that she was feeling tired and not eating or drinking well for the past couple of days, dehydration could be one of the reason for syncope. She has been eating and drinking well in the hospital but she does have a new ARF, which supports dehydration. She does not have any arrhythmia recorded and cause of her syncope remains unclear currently otherwise. Cardiology recs appreciated. Of note, she does not have any focal neurological deficit. #Elevated troponin Likely due to demand ischemia. Cardiology recs to be followed. She denies any chest pain/pressure/heaviness and is also objectively not in any distress. Making type 1 [place] less likely. Echocardiogram did not show any functional/ structural change concerning for ischemia. #Acute renal failure Her BUN/Cr is 29/1.7 which is a rise from 21/1.6 in 09/15/17 and a definite rise from 18/0.7 in 2013. This could be due to dehydration which responded well to IV Fluids. She needs to get BEP test done within five days after discharge and follow up with her PCP. #BINDU inhibitor is on hold and Amlodipine 5 mg has been added to her med regimen per cardiology recs. #Ruled out PE #Lactic acidosis, resolved Patient's lactic acid initially was 2.6, trended down to 0.9 and 0.7. Now normal. #Will continue rest of her home meds. Reconcilation done. #Diet: CC2 diet #DVT ppx: SQ Heparin #Code status: Full code Problem List: 1. Syncope 2. Elevated troponin 3. Acute kidney injury Pain Ratin Pain Location: - Pain Goal: Pain 4 or less Pain Plan: prn Tomorrow's Labs & Rationales: - Андрей Ta 09/22/17 1146: Attending MD Review Statement Attending Statement Attending MD Statement: examined this patient, discuss w/resident/PA/MAPPING SUPERVISOR, agreed w/resident/PA/MAPPING SUPERVISOR, discussed with family, reviewed EMR data (avail), discussed with nursing, discussed with case mgmt, reviewed images, amended to note Attending Assessment/Plan: Patient here for syncope , dehydration , hypotension and acute kidney injury in pmh as above. Patient with improvement in creatinine function with IVF. Nephrology appreciated. Telemetry with no events. ECHO with EF 50%. Patient with mild elevated bp wit losartan held. Can resume amlodipine 5 mg and monitor bp as outpatient. FOLLOW UP Cardiology in 2-3 weeks PCP in 1-2 weeks
[2017-09-22 08:36] VITALS: BP 160/98
--- NOTE | 2017-09-22 11:26 | PN- Cardiology ---
Subjective Subjective: Patient is resting comfortably and offers no complaints. Objective Vital Signs and I&Os Vital Signs Date Time Temp Pulse Resp B/P B/P Pulse O2 O2 Flow FiO2 Mean Ox Delivery Rate 09/22 0836 68 160/98 09/22 0800 94 Nasal 2.0L Cannula 09/22 0651 98.2 68 18 160/98 98 Nasal 2.0L Cannula 09/22 0000 Nasal 2.0L Cannula 09/21 2243 98.3 71 18 150/86 99 09/21 2022 82 09/21 1600 95 Nasal 2.0L Cannula 09/21 1418 98.3 98 20 178/100 96 Room Air 09/21 1310 104 142/88 Intake & Output 09/22 1600 09/22 0800 09/22 0000 09/21 0000 Intake Total 100 470 550 60 60 Output Total Balance 100 470 550 60 60 Intake, Oral 100 470 550 60 60 Output, Urine Patient 165 lb Weight Physical Exam: General: no apparent distress. Alert. Eyes: No obvious scleral icterus. HEENT: No jugular venous distention or abnormal jugular venous pulsations. Cardiovascular: Normal intensity S1/S2. Regular Respiratory: Lungs clear to auscultation bilaterally. Abdomen: Soft, nontender with no guarding or rebound tenderness. Musculoskeletal: No clubbing or cyanosis noted Skin: warm Neurologic: No gross focal deficits noted. Lymph: No gross lymphadenopathy. Current Medications: Current Medications Sig/Liliya Start time Last Medication Dose Route Stop Time Status Admin Acetaminophen 650 MG Q6P PRN 09/19 0130 AC 09/21 PO 0657 Acetaminophen 1,000 MG Q6P PRN 09/19 0130 AC IV Atorvastatin Calcium 40 MG 1700 09/19 1700 AC 09/21 PO 1723 Buspirone HCl 30 MG QPM 09/19 2100 AC 09/21 PO 202 Buspirone HCl 15 MG QAM 09/19 1225 AC 09/22 PO 0836 Carbidopa/Levodopa 1 TAB TID 09/19 1400 AC 09/22 PO 0836 Gabapentin 100 MG TID 09/19 1400 AC 09/22 PO 0836 Heparin Sodium 5,000 UNIT Q8 09/19 0600 AC 09/22 (Porcine) SC 0510 Metoprolol Tartrate 25 MG BID 09/22 0900 AC 09/22 PO 0836 Metoprolol Tartrate 25 MG TID 09/21 1400 DC 09/21 PO 09/22 0000 2 Oxycodone/ 1 TAB Q8P PRN 09/19 0130 AC 09/20 Acetaminophen PO 2043 Potassium Chloride 80 MEQ ONCE ONE 09/210 DC 09/21 PO 09/21 Ropinirole HCl 1 MG 1400,2100 09/19 1400 AC 09/21 PO 2021 Venlafaxine HCl 75 MG DAILY 09/19 1227 AC 09/22 PO 0836 Results Last 48 Hrs of Labs/Mics: Laboratory Tests 09/22/17 0625: Anion Gap 10, Estimated GFR 29 L, BUN/Creatinine Ratio 17.1 09/21/17 0605: Anion Gap 12, Estimated GFR 37 L, BUN/Creatinine Ratio 18.6, CBC w Diff NO MAN DIFF REQ, RBC 4.15 L, MCV 86.9, MCH 29.1, MCHC 33.4, RDW 13.1, MPV 6.4 L, Gran % 85.3 H, Lymphocytes % 7.7 L, Monocytes % 6.0, Eosinophils % 0.8, Basophils % 0.2, Absolute Granulocytes 9.1 H, Absolute Lymphocytes 0.8 L, Absolute Monocytes 0.6, Absolute Eosinophils 0.1, Absolute Basophils 0 Recent Imaging Studies: Telemetry tracings were personally reviewed and shows sinus rhythm Echocardiogram Technically difficult study. Left ventricular cavity size normal. Left ventricular wall thickness mildly increased. No obvious regional wall motion abnormalities. Left ventricular ejection fraction is estimated at 50 %. Right ventricle not well visualized, grossly normal. Left atrial size at the upper limits of normal. Unable to estimate the right ventricular systolic pressure. No pericardial effusion. Joe Whitfield M.D. (Electronically Signed) Final Date: 19 September 2017 16:09 Assessment/Plan Assessment/Plan 1. Acute renal failure of unclear etiology 2. Syncope 3. Minimal troponin elevation due to acute renal failure 4. Known right bundle branch block 5. COPD 6. History of non-small cell lung cancer 7. History of hypertension/hyperlipidemia/nonobstructive carotid stenosis 8. History of mild cardiomyopathy in the past with possible infarct versus artifact on nuclear stress test Patient is resting comfortably. Telemetry shows no evidence of significant arrhythmia. Echocardiogram as above without regional wall motion abnormality. Blood pressure above goal likely due to her ARB being on hold; resume when cleared by nephrology but if unable to resume her ARB can consider adding amlodipine 5 mg p.o. daily. Twan Whitfield MD [facility] Continue telemetry? No
[2017-09-22] MEDS ORDERED: AMLODIPINE BESYL5 M1 PO ×2 (11:41→12:57)
--- NOTE | 2017-09-22 11:49 | Patient Discharge Instructions ---
Discharge Instructions General Discharge Information You were seen/treated for: Syncopal episode Special Instructions: Please get your blood test (BEP) done in five days from now and follow up with your PCP, an/or Er Tech after your discharge. Please follow up with your manager trading after your discharge. Please return to emergency if symptoms worsen. Diet Continue normal diet: No Recommended Diet: Diabetic Activity Activity Self Limited: Yes Acute Coronary Syndrome Inclusion Criteria At DC or during hospital stay patient has or had the following: ACS DIAGNOSIS No Discharge Core Measures Meds if any: Prescribed or Continued at Discharge Meds if any: NOT Prescribed or Continued at Discharge Congestive Heart Failure Inclusion Criteria At DC or during hospital stay patient has or had the following: CHF DIAGNOSIS No Discharge Core Measures Meds if any: Prescribed or Continued at Discharge Meds if any: NOT Prescribed or Continued at Discharge Cerebrovascular accident Inclusion Criteria At DC or during hospital stay patient has or had the following: CVA/TIA Diagnosis No Discharge Core Measures Meds if any: Prescribed or Continued at Discharge Meds if any: NOT Prescribed or Continued at Discharge Venous thromboembolism Inclusion Criteria VTE Diagnosis No VTE Type NONE VTE Confirmed by (Test) NONE Discharge Core Measures - Per Current guidelines, there needs to be overlap - treatment for the first 5 days of Warfarin therapy. - If discharged on Warfarin prior to 5 days of - overlap therapy, the patient will need to be - assessed for post discharge needs including - *Post discharge parental anticoagulation - *Warfarin and/or parental anticoagulation education - *Follow up date to check INR post discharge At least 5 days overlap therapy as Inpatient No Meds if any: Prescribed or Continued at Discharge Note: Overlap Therapy is Warfarin and Anticoagulant Meds if any: NOT Prescribed or Continued at Discharge
--- NOTE | 2017-09-23 12:55 | Discharge Summary ---
Visit Information Visit Dates Admission Date: 09/18/17 Discharge Date: 09/22/17 Hospital Course Course Attending Physician: Андрей Ta MD Primary Care Physician: Daniel Osorio MD Hospital Course: 77-year-old female with past medical history of COPD not on oxygen, mild cardiomyopathy, venous insufficiency, right bundle branch block, ex-smoker (quit 8 yrs ago), non-small cell lung cancer status post chemotherapy/radiation 8 yrs ago, nonobstructive carotid stenosis, hypertension, hyperlipidemia, was brought in to the emergency for worsening weakness, fatigue since past 2 days, and at the triage station she "fainted" without any other symptoms. She did NOT remember any of this herself. Her hospital course was uneventful. She was admitted in the telemetry be floor for the management of following issues: #Syncope, likely dehydration Given patient's history that she was feeling tired and not eating or drinking well for the past couple of days, dehydration could be one of the reason for syncope. She ate and drank well in the hospital but she did present with CHAS on CKD (Stage 3b) with high BUN/Cr which supports dehydration. She did not have any arrhythmia, focal neurological deficit, or other features to explain her presentation. Cardiology recs appreciated. #Elevated troponin, likely Type 2 W[place] She had transient increase in troponin (max 0.14), which is likely due to type 2 W[place], and not ACS. It did trend down as well. She denied any chest pain/pressure/ heaviness and was never in any distress. Echocardiogram did not show any functional/structural change concerning for ischemia. #Acute renal failure (CHAS on CKD, stage 3b-4) Her BUN/Cr was 29/1.7 which is slight rise from her recent baseline 21/1.6 in . This acute rise could be due to dehydration which responded well to IV Fluids. However, she needs to get BEP test done within five days after discharge and follow up with her PCP. #BINDU inhibitor was held and PO Amlodipine 5 mg has been added to her med regimen per cardiology recs, for HTN control, given her CHAS. #Ruled out PE with VQ scan, as CTA was not possible given her CHAS on CKD. #Lactic acidosis, resolved Patient's lactic acid initially was 2.6, trended down to 0.9 and 0.7. Now normal. #Wecontinued rest of her home meds. Med reconcilation was done by me. Allergies: Coded Allergies: NO KNOWN ALLERGIES (10/20/13) Significant Procedures: Echo 09/19/17: CONCLUSIONS Technically difficult study. Left ventricular cavity size normal. Left ventricular wall thickness mildly increased. No obvious regional wall motion abnormalities. Left ventricular ejection fraction is estimated at 50 %. Right ventricle not well visualized, grossly normal. Left atrial size at the upper limits of normal. Unable to estimate the right ventricular systolic pressure. No pericardial effusion. Joe Whitfield M.D. (Electronically Signed) Final Date: 19 September 2017 16:09 Disposition Summary Disposition Principal Diagnosis: Syncopal episode, likely dehydration Additional Diagnosis: COPD not on oxygen, mild cardiomyopathy, venous insufficiency, right bundle branch block, ex-smoker (quit 8yrs) non-small cell lung cancer status post chemotherapy/radiation 8 yrs ago, nonobstructive carotid stenosis, hypertension, hyperlipidemia Discharge Disposition: home or self care Discharge Instructions General Discharge Information Code Status: Full Code Patient's Diet: Heart healthy diet Patient's Activity: As tolerated Follow-Up Instructions/Appts: Please get your blood test (BEP) done in five days from now and follow up with your PCP, an/or Fulling Mill Operator after your discharge. Please follow up with your driftman after your discharge. Please return to emergency if symptoms worsen. Medications at Discharge Discharge Medications: Stop taking the following medications: Losartan Potassium (Losartan Potassium) 50 MG TABLET ORAL DAILY Qty = 90 Continue taking these medications: Umeclidinium [place] (Incruse Ellipta) 62.5 MCG/ACTUATION BLST.W.DEV 1 PUFF Inhale through mouth DAILY Qty = 90 Comments: NOT GIVEN IN HOSPITAL Metoprolol Succinate (Metoprolol Succinate) 50 MG TAB.ER.24H 1 Tablet ORAL DAILY Qty = 90 Comments: Last Taken: 09/22/17 Time: 0830 AM Buspirone HCl (Buspirone HCl) 15 MG TABLET 1 Tablet ORAL Every Morning Qty = 270 Comments: Last Taken: 09/22/2017 Time: 0830 AM Venlafaxine HCl (Venlafaxine HCl ER) 75 MG CAP.ER.24H 1 Capsule ORAL DAILY Qty = 90 Comments: Last Taken: 09/22/17 Time: 0830 AM Buspirone HCl (Buspirone HCl) 30 MG TABLET 1 Tablet ORAL Every night Qty = 30 Comments: Last Taken: 09/22/2017 Time: 0830 PM Metolazone (Metolazone) 2.5 MG TABLET 1 Tablet ORAL QFRIDAY Comments: NOT GIVEN IN HOSPITAL. Prochlorperazine Maleate (Prochlorperazine Maleate) 10 MG TABLET 1 Tablet ORAL EVERY SIX HOURS as needed for NAUSEA/VOMITING Qty = 30 Comments: NOT GIVEN IN HOSPITAL. Gabapentin (Neurontin) 100 MG CAPSULE 1 Capsule ORAL THREE TIMES DAILY Comments: Last Taken: 09/22/2017 Time: 0830 AM Metformin HCl (Metformin HCl ER) 1,000 MG TAB.ER.24 1 Tablet ORAL DAILY Comments: NOT GIVEN IN HOSPITAL. Carbidopa/Levodopa (Sinemet 25-100 MG Tablet) 25 MG-100 MG TABLET 1 Tablet ORAL THREE TIMES DAILY Comments: Last Taken: 09/22/17 Time: 0830 AM Pravastatin Sodium (Pravastatin Sodium) 40 MG TABLET 1 Tablet ORAL DAILY Comments: Last Taken: 09/22/17 Time: 530 PM Ropinirole HCl (Ropinirole HCl) 1 MG TABLET 1 Tablet ORAL Q1400, 2100 Comments: Last Taken: 09/21/17 Time: 830 PM Albuterol Sulfate (Proair Hfa) 90 MCG HFA.AER.AD 2 Puff Inhale through mouth EVERY 4-6 HOURS NEEDED as needed for SHORTNESS OF BREATH Comments: NOT GIVEN IN HOSPITAL. Tramadol HCl (Tramadol HCl) 50 MG TABLET 1 Tablet ORAL THREE TIMES A DAY NEEDED as needed for PAIN Comments: NOT GIVEN IN HOSPITAL. Start taking the following new medications: Amlodipine Besylate (Amlodipine Besylate) 5 MG TABLET 1 Tablet ORAL DAILY Qty = 30 Refills = 2 Instructions: . Comments: NOT GIVEN IN HOSPITAL. Copies To: Stefani BENITEZ,Yuan Trujillo; Myles BENITEZ,Cristofer Dubose; Devon BENITEZ,Daniel Lagunas Attending MD Review Statement Documenting Attending: Андрей Ta MD
== END 2017-09-22 13:45 | DRG 683 ==
LOC: ERH 19:23 → 1NO 23:16 → ERHI 23:16 → ENRESERV 09-19 00:32 → 1NO 09-19 02:08 → ENPENDDIS 09-22 11:54 → ENTRNSPT 09-22 13:00 → EDTRNSPT 09-22 13:08 → EDTRNSPTSTS 09-22 13:08 → EDTRNSPT 09-22 13:21 → 1NO 09-22 13:45 → CMPTRNSPT 09-22 14:19
PROVIDERS: Internal Medicine Hematology & Oncology; Physician Assistant Medical; Student in an Organized Health Care Education/Training Program
DX: N17.9 Acute kidney failure, unspecified (principal); E87.2 Acidosis; G20 Parkinson's disease; I42.9 Cardiomyopathy, unspecified; E86.0 Dehydration; J44.9 Chronic obstructive pulmonary disease, unspecified; E11.9 Type 2 diabetes mellitus without complications; R41.82 Altered mental status, unspecified; I10 Essential (primary) hypertension; W18.30XA Fall on same level, unspecified, initial encounter; R53.1 Weakness; I45.10 Unspecified right bundle-branch block; E78.5 Hyperlipidemia, unspecified; F41.9 Anxiety disorder, unspecified; Z85.118 Personal history of other malignant neoplasm of bronchus and lung; Z79.84 Long term (current) use of oral hypoglycemic drugs; Z79.51 Long term (current) use of inhaled steroids; I87.2 Venous insufficiency (chronic) (peripheral)
CPT/HCPCS: 1NSP; 84133; 84300; ERO; 36415; 36592; 71046; 74176; 78582; 81001; 82436; 82570; 87040; 93005; 93010; 93306; 97116-GO; 97161-GP; A9540; A9558; J1644; J3490

== ENCOUNTER 2017-09-23 13:51 | Inpatient (IN) | payer OTHER ==
[~2017-09-23] VITALS: Ht 157.5 cm; Wt 69.9 kg
[~2017-09-23 13:51] MED LIST changes: +AMLODIPINE BESYL5 M1 PO; +BUSPIRONE HCL15 M1 PO; +BUSPIRONE HCL30 M1 PO; +INCRUSE ELLI62.5 MCG INH; +LOSARTAN POTASS50 M1 PO; +METFORMIN HCL1000 M2 PO; +METOLAZONE2.5 M1 PO; +METOPROLOL SUCC50 M2 PO; +NEURONTIN100 M1 PO; +PRAVASTATIN SOD40 M2 PO; +PROAIR HFA8.5 GM INH; +PROCHLORPERAZIN10 MG PO; +ROPINIROLE HCL1 MG PO; +SINEMET 25-1001 EACH PO; +TRAMADOL HCL50 M1 PO; +VENLAFAXINE HCL75 M1 PO
--- NOTE | 2017-09-23 14:20 | ED SYNCOPE COMPLAINT ---
History of Present Illness General Chief Complaint: Syncope and Near-Syncope Stated Complaint: BIBA SYNCOPAL EPISODES, RECENT BP MED CHANGES Source: patient, family Exam Limitations: clinical condition Vital Signs & Intake/Output Vital Signs & Intake/Output Vital Signs Date Time Temp Pulse Resp B/P B/P Pulse O2 O2 Flow FiO2 Mean Ox Delivery Rate 09/24 2047 97.4 78 16 124/56 96 Room Air 09/23 1841 98.5 72 18 139/62 97 Room Air Room Air 09/23 1621 64 18 119/59 97 Room Air Room Air 09/23 1549 78 18 139/78 97 Room Air Room Air 09/23 1450 75 18 140/63 96 Room Air Room Air 09/23 1447 74 120/60 09/23 1430 72 16 134/71 97 Room Air 09/23 1425 98 Room Air 09/23 1419 78 18 124/78 98 Room Air 09/23 1405 97.0 74 18 90/00 98 Room Air Allergies Coded Allergies: NO KNOWN ALLERGIES (10/20/13) Reconcile Medications Albuterol Sulfate (Proair Hfa) 90 MCG HFA.AER.AD 2 PUF INH Q4-6 PRN PRN SHORTNESS OF BREATH (Reported) Amlodipine Besylate 5 MG TABLET 1 TAB PO DAILY HTN . Buspirone HCl 15 MG TABLET 1 TAB PO QAM MENTAL HEALTH (Reported) Buspirone HCl 30 MG TABLET 1 TAB PO QPM MENTAL HEALTH (Reported) Carbidopa/Levodopa (Sinemet 25-100 MG Tablet) 25 MG-100 MG TABLET 1 TAB PO TID PARKINSONISM (Reported) Gabapentin (Neurontin) 100 MG CAPSULE 1 CAP PO TID . (Reported) Metformin HCl (Metformin HCl ER) 1,000 MG TAB.ER.24 1 TAB PO DAILY DM ( Reported) Metolazone 2.5 MG TABLET 1 TAB PO QFRIDAY . (Reported) Metoprolol Succinate 50 MG TAB.ER.24H 1 TAB PO DAILY HEART/BP (Reported) Pravastatin Sodium 40 MG TABLET 1 TAB PO DAILY HLD (Reported) Prochlorperazine Maleate 10 MG TABLET 1 TAB PO Q6 PRN NAUSEA/VOMITING ( Reported) Ropinirole HCl 1 MG TABLET 1 TAB PO Q1400, 2100 MENTAL HEALTH (Reported) Tramadol HCl 50 MG TABLET 1 TAB PO TIDPRN PRN PAIN (Reported) Umeclidinium [place] (Incruse Ellipta) 62.5 MCG/ACTUATION BLST.W.DEV 1 PUFF INH DAILY COPD (Reported) Venlafaxine HCl (Venlafaxine HCl ER) 75 MG CAP.ER.24H 1 CAP PO DAILY MENTAL HEALTH (Reported) Triage Note: 77F RECENTLY ADMITTED FOR NEAR SYNCOPE AND HAD MULTIPLE ANTIHYPERTENSIVE MED ADJUSTMENTS. NOW HAS INTERMITTENT DIZZINESS, SYNCOPAL EPISODES IN FRONT OF FAMILY AND ONE IN FRONT OF EMS WITH INITIAL BP 60'S/PALP, IMPROVED TO 80'S/PALP AND 120/70 JUST MICROSOFT ARCHITECT. ARRIVES AAOX3. ?CONSULT FOR HOME CARE ADL ASSIST DUE TO ARRIVAL STILL WEARING HOSPITAL BRACELETS AND EKG STICKERS FROM PREVIOUS VISIT. HYPOTENSIVE ON ARRIVAL WITH INTERMITTENT LOC AND AMS Triage Nurses Notes Reviewed? yes HPI: Patient presents for evaluation of severe generalized weakness and near fainting episode prior to arrival. Patient was evaluated recently in the [facility] emergency department for similar constellation of symptoms with no apparent etiology determined. (Janet BENITEZ,Prakash Gilmore) Past History Travel History Traveled to [facility] past 21 day No Medical History Any Pertinent Medical History? see below for history Neurological: NONE EENT: NONE Cardiovascular: hypertension, hyperlipidemia, hypertension Respiratory: NONE Gastrointestinal: NONE Hepatic: NONE Renal: NONE Musculoskeletal: NONE Psychiatric: NONE Endocrine: borderline diabetes History of MRSA: No History of VRE: No History of CDIFF: No Surgical History Surgical History: non-contributory Psychosocial History Who do you live with Spouse Services at Home None What is your primary language Israeli Tobacco Use: Refused to answer Family History Family History, If Any: FATHER (cancer pancreas). Relation not specified for: FH: Alzheimers disease FH: bipolar disorder FH: cancer FH: heart attack FHx: stroke Hypertension Hx Contributory? No (Janet BENITEZ,Prakash Gilmore) Review of Systems Review of Systems Constitutional: Reports: see HPI. EENTM: Reports: no symptoms. Respiratory: Reports: no symptoms. Cardiovascular: Reports: no symptoms. GI: Reports: no symptoms. Genitourinary: Reports: no symptoms. Musculoskeletal: Reports: no symptoms. Skin: Reports: no symptoms. Neurological/Psychological: Reports: no symptoms. All Other Systems: Reviewed and Negative (Janet BENITEZ,Prakash Gilmore) Physical Exam Physical Exam Cranial Nerves: SEE BELOW Comments: Gen.: Well-nourished, well-developed, no acute respiratory distress. Head: Normocephalic, atraumatic. Eyes: Normal inspection bilaterally Ears: Normal inspection bilaterally Nose: Normal inspection Throat/mouth : Moist mucosa Neck: Supple, full range of motion, no goiter Heart: Regular rate and rhythm, no murmurs rubs or gallops Lungs: Clear to auscultation bilaterally with normal air entry Chest: Nontender Back: Normal range of motion Abdomen: Soft, nontender, nondistended, normal bowel sounds Extremities: Normal range of motion grossly, equal radial pulses, no cyanosis clubbing or edema Neurologic: Cranial nerves grossly intact, speech is clear Skin: warm and dry Psychiatric: Calm, cooperative, no apparent delusions or hallucinations Core Measures ACS in differential dx? No CVA/TIA Diagnosis: No Sepsis Present: No Sepsis Focused Exam Completed? No (Janet BENITEZ,Prakash Gilmore) Progress Differential Diagnosis: AMI, orthostatic syncope, TIA/CVA, vasodepressor syncope , dehydration/electrolyte abnormality Plan of Care: Orders Procedure Date/time Status Consistent Carbohydrate 2 09/23 D Active Weight 09/23 2045 Active Teach/Educate 09/23 2045 Active Pain Treatment and Response 09/23 2045 Active Nutritional Intake, Monitor 09/23 2045 Active Isolation 09/23 2045 Active Patient Care Conference 09/23 2045 Active Patient Data 09/23 1950 Active OXYGEN SETUP (GEN) 09/24 1907 Active Saline Lock 09/24 1907 Active Admit to inpatient 09/23 190 Active Vital Signs 09/24 1907 Active Activity/Ambulation 09/24 1907 Active BLOOD CULTURE 09/24 1907 Active Code Status 09/24 1907 Active MISTAKE 09/23 141 Active URINALYSIS 09/23 1419 Complete TSH REFLEX 09/23 141 Complete TROPONIN LEVEL 09/23 141 Complete COMPREHENSIVE METABOLIC PANEL 09/23 1419 Complete CBC WITHOUT DIFFERENTIAL 09/23 1419 Complete EKG 09/23 1410 Active Intake & Output 09/23 1359 Active FingerStick- Glucose 09/23 1353 Active Laboratory Tests 09/23/17 1810: Urinalysis MOD H, Urine Color YEL, Urine Clarity CLEAR, Urine pH 6.5, Ur Specific Gilbert >= 1.030, Urine Protein >=300 H, Urine Ketones NEG, Urine Nitrite NEG, Urine Bilirubin NEG, Urine Urobilinogen 0.2, Ur Leukocyte Esterase NEG, Ur Microscopic SEDIMENT EXAMINED, Urine RBC 1-3, Urine WBC 1-3 H, Ur Epithelial Cells FEW, Urine Bacteria FEW H, Hyaline Casts 1-3 H, Urine Mucus FEW, Urine Hemoglobin TRACE-INTACT, Urine Glucose NEG 09/23/17 1422: Anion Gap 12, Estimated GFR 29 L, BUN/Creatinine Ratio 17.1, Glucose 121 H, Calcium 9.6, Total Bilirubin 0.6, AST 20, ALT 27, Alkaline Phosphatase 69, Troponin I 0.05, Total Protein 6.9, Albumin 4.0, Globulin 2.9, Albumin/Globulin Ratio 1.4, TSH &T3 &Free T4 Intrp 2.810, CBC w Diff MAN DIFF ORDERED, RBC 4.39, MCV 85.4, MCH 29.4, MCHC 34.4, RDW 13.6, MPV 6.3 L, Gran % 89.5 H, Lymphocytes % 5.6 L, Monocytes % 4.4, Eosinophils % 0.5, Basophils % 0, Absolute Granulocytes 15.4 H, Segmented Neutrophils 88 H, Band Neutrophils 3, Absolute Lymphocytes 1.0 L, Lymphocytes 7 L, Monocytes 1 L, Absolute Monocytes 0.8 H, Eosinophils 1, Absolute Eosinophils 0.1, Absolute Basophils 0, Platelet Estimate ADEQUATE, Normocytic RBCs VERIFIED, Normochromic RBCs VERIFIED, Basophilic Stippling RARE Microbiology 09/24 1943 BLOOD: Blood Culture - RECD 09/24 1919 BLOOD: Blood Culture - RECD Comments: 09/23/2017 2:48:05 PM Leticia's blood pressure has stabilized with a fluid bolus. 09/23/2017 3:24:04 PM patient signed out to Dr. Manrique at shift oil changer. (Janet BENITEZ,Prakash Gilmore) Departure Departure Disposition: STILL A PATIENT Condition: Stable Referrals: Daniel Osorio MD (PCP/Family) Departure Forms: Customer Survey General Discharge Information (Janet BENITEZ,Prakash Gilmore) Departure Clinical Impression Primary Impression: Pneumonia Secondary Impressions: Leukocytosis, Orthostasis, Volume depletion Admission Note Spoke With: Ketan BENITEZ,Ayde Documentation of Exam: Documentation of any treatments & extenuating circumstances including Concerns Regarding Discharge (functional status, medication knowledge or non-compliance, living conditions, etc.) that warrant an admission rather than observation: IV antibiotics follow cultures serial lab exam pulmonary evaluation physical therapy medication adjustment continuing care discharge planning. (Burton BENITEZ,Garry) Critical Care Note Critical Care Note Critical Care Time: 30-74 min (Janet BENITEZ,Prakash Gilmore)
[2017-09-23 14:33] LABS: ABSOLUTE BASOPHIL COUNT 0 /CUMM (0.0-0.2); ABSOLUTE EOSINOPHIL COUNT 0.1 /CUMM (0.0-0.7); MEAN CORPUSCULAR HGB CONC 34.4 G/DL (33.0-37.0)
[2017-09-23 14:41] LABS: ABSOLUTE GRANULOCYTE CT 15.4 /CUMM (1.4-6.5); ABSOLUTE MONOCYTE COUNT 0.8 /CUMM (0.10-0.60); BASOPHIL % 0 % (0.0-2.0); EOSINOPHIL % 0.5 % (0-5); GRANULOCYTE % 89.5 % (42.2-75.2); HEMATOCRIT 37.4 % (37-47); MEAN CORPUSCULAR HGB 29.4 PG (27.0-31.0); MEAN CORPUSCULAR VOLUME 85.4 FL (81.0-99.0); MEAN PLATELET VOLUME 6.3 FL (7.4-10.4); PLATELET COUNT 300 /CUMM (130-400); RBC DISTRIBUTION WIDTH 13.6 % (11.5-14.5); RED BLOOD CELL CT 4.39 /CUMM (4.20-5.40)
[2017-09-23 14:43] LABS: WHITE BLOOD CELL COUNT 17.2 /CUMM (4.8-10.8)
--- NOTE | 2017-09-23 15:17 | RADIOLOGY REPORT ---
EXAMINATION: XR PORTABLE CHEST CLINICAL INFORMATION: Weakness. Syncope. COMPARISON: Chest x-ray 09/18/[address] chest 02/25/2017 TECHNIQUE: Portable frontal view of the chest was obtained. 2:22 PM FINDINGS: There is volume loss and dense consolidation of the mid and lower right lung with only a small region of aeration at the right lung apex. There is midline shift to the right. This is chronic unchanged since prior exam 09/18/2017. The left lung is clear. No pulmonary vascular congestion. No left pleural effusion IMPRESSION: 1. Stable chronic changes of volume loss of the right hemithorax with dense consolidation mid to lower lung and probable right effusion unchanged since prior chest x-ray 09/18/2017. 2. No acute abnormality.
--- NOTE | 2017-09-23 20:22 | Admission Certification ---
Admission Certification Certification Statement - As attending physician, I certify that at the time of - admission, based on clinical presentation, severity of - symptoms, need for further diagnostic testing and - therapeutic interventions, and risk of adverse outcomes - without in-hospital treatment, in my clinical assessment, - this patient requires an acute hospital stay for a minimum - of two nights or longer. I have also considered psychsocial - factors such as support system, advanced age, financial - issues, cognitive issues, and failed out-patient treatments, - past re-admission history, safety of patient, and lack of - compliance as applicable. Specific rationale supporting this admission is: Recurrent syncope, orthostatic hypotension.
[2017-09-23 21:00] VITALS: BP 142/72
--- NOTE | 2017-09-23 22:21 | History & Physical ---
Amaury Montero MD 09/23/17 2221: General Information and HPI MD Statement: I have seen and personally examined SOHAN PATE and documented this H&P. The patient is a 77 year old F who presented with a patient stated chief complaint of [syncopal episodes]. Source of Information: patient, family, old records Exam Limitations: no limitations History of Present Illness: Patient is a 77-year-old female with past medical history of hypertension, hyperlipidemia, COPD, non-small cell lung cancer status post chemotherapy and radiation, anxiety, recent admission on 09/19 for weakness and syncope presenting this admission with chief complaint of recurrent syncopal episodes. Patient and her family state that after patient was discharged on day of admission she started having multiple episodes where she would pass out. Patient states that the first time she had an episode she was trying to get up out of the chair and passed out. States that she fell out of the chair however denies hitting her head. Patient believes that each time she passed out for a few minutes. Patient denies any chest pain, palpitations, warmth, dizziness, lightheadedness, visual disturbances prior to these episodes. Patient denied any confusion afterwards. Family denies any seizure-like activities. Patient's losartan was discontinued from previous admission and patient was started on amlodipine 5 mg. Patient states that she has not taken the losartan but also has not had a chance to get the amlodipine from the pharmacy. Patient reports that she has a good appetite however did not have anything to eat this morning. Patient's blood pressure initially in the ED was 90 over Doppler. Patient was given 1 L normal saline bolus with improvement in blood pressure. Patient received ceftazidime and azithromycin in the ED. Allergies/Medications Allergies: Coded Allergies: NO KNOWN ALLERGIES (10/20/13) Home Med list Albuterol Sulfate (Proair Hfa) 90 MCG HFA.AER.AD 2 PUF INH Q4-6 PRN PRN SHORTNESS OF BREATH (Reported) Amlodipine Besylate 5 MG TABLET 1 TAB PO DAILY HTN . Buspirone HCl 15 MG TABLET 1 TAB PO QAM MENTAL HEALTH (Reported) Buspirone HCl 30 MG TABLET 1 TAB PO QPM MENTAL HEALTH (Reported) Carbidopa/Levodopa (Sinemet 25-100 MG Tablet) 25 MG-100 MG TABLET 1 TAB PO TID PARKINSONISM (Reported) Gabapentin (Neurontin) 100 MG CAPSULE 1 CAP PO TID . (Reported) Metformin HCl (Metformin HCl ER) 1,000 MG TAB.ER.24 1 TAB PO DAILY DM ( Reported) Metolazone 2.5 MG TABLET 1 TAB PO QFRIDAY . (Reported) Metoprolol Succinate 50 MG TAB.ER.24H 1 TAB PO DAILY HEART/BP (Reported) Pravastatin Sodium 40 MG TABLET 1 TAB PO DAILY HLD (Reported) Prochlorperazine Maleate 10 MG TABLET 1 TAB PO Q6 PRN NAUSEA/VOMITING ( Reported) Ropinirole HCl 1 MG TABLET 1 TAB PO Q1400, 2100 MENTAL HEALTH (Reported) Tramadol HCl 50 MG TABLET 1 TAB PO TIDPRN PRN PAIN (Reported) Umeclidinium Cylinder (Incruse Ellipta) 62.5 MCG/ACTUATION BLST.W.DEV 1 PUFF INH DAILY COPD (Reported) Venlafaxine HCl (Venlafaxine HCl ER) 75 MG CAP.ER.24H 1 CAP PO DAILY MENTAL HEALTH (Reported) Past History Travel History Traveled to [place] past 21 day No Medical History Blood Transfusion Hx: No Neurological: NONE EENT: NONE Cardiovascular: hypertension, hyperlipidemia, hypertension Respiratory: NONE Gastrointestinal: NONE Hepatic: NONE Renal: NONE Musculoskeletal: NONE Psychiatric: NONE Endocrine: borderline diabetes History of MRSA: No History of VRE: No History of CDIFF: No Surgical History Surgical History: non-contributory Past Family/Social History Family History Relations & Conditions if any FATHER (cancer pancreas). Relation not specified for: FH: Alzheimers disease FH: bipolar disorder FH: cancer FH: heart attack FHx: stroke Hypertension Psychosocial History Services at Home: None Smoking Status: Former Smoker Review of Systems Review of Systems Constitutional: Reports: see HPI. EENTM: Reports: no symptoms. Cardiovascular: Reports: see HPI. Respiratory: Reports: cough. Denies: short of breath, sputum production. GI: Reports: no symptoms. Genitourinary: Reports: no symptoms. Musculoskeletal: Reports: see HPI. Skin: Reports: no symptoms. Neurological/Psychological: Reports: see HPI. Hematologic/Endocrine: Reports: no symptoms. Immunologic/Allergic: Reports: no symptoms. Exam & Diagnostic Data Last 24 Hrs of Vital Signs/I&O Vital Signs Date Time Temp Pulse Resp B/P B/P Pulse O2 O2 Flow FiO2 Mean Ox Delivery Rate 09/24 0656 98.2 86 16 150/74 97 Room Air 09/23 2100 98.2 86 16 142/72 99 Room Air 09/23 2048 97.4 78 16 124/56 96 Room Air 09/23 1841 98.5 72 18 139/62 97 Room Air Room Air 09/23 1621 64 18 119/59 97 Room Air Room Air 09/23 1549 78 18 139/78 97 Room Air Room Air 09/23 1450 75 18 140/63 96 Room Air Room Air 09/23 1447 74 120/60 09/23 1430 72 16 134/71 97 Room Air 09/23 1425 98 Room Air 09/23 1419 78 18 124/78 98 Room Air 09/23 1405 97.0 74 18 90/00 98 Room Air Intake & Output 09/24 1600 09/24 0800 09/24 0000 Intake Total 400 Output Total 200 Balance 400 -200 Intake, IV 400 Output, Urine 200 Patient 165 lb Weight Weight Bed scale Measurement Method Physical Exam General Appearance Alert, Oriented X3, Cooperative, No Acute Distress Skin No Rashes, No Breakdown, No Significant Lesion Skin Temp/Moisture Exam: Warm/Dry Sepsis Skin Exam (color): Normal for Ethnicity HEENT Atraumatic, PERRLA, EOMI, dry mucosal membrane Neck Supple, No JVD, No thryomegaly, +2 Carotid Pulse wo Bruit, No LAD Lymphatic Cervical nl Cardiovascular Regular Rate, Normal S1, Normal S2, No Murmurs Lungs Clear to Auscultation, Normal Air Movement Abdomen Normal Bowel Sounds, Soft, No Tenderness Neurological Normal Speech, Strength at 5/5 X4 Ext, Normal Tone, Sensation Intact, Cranial Nerves 3-12 NL Extremities No Clubbing, No Cyanosis, Normal Pulses, No Tenderness/Swelling, bilateral lower extremity edema Vascular Normal Pulses, Pulses Symmetrical Last 24 Hrs of Labs/Elias: Laboratory Tests 09/23/17 1810: Urinalysis MOD H, Urine Color YEL, Urine Clarity CLEAR, Urine pH 6.5, Ur Specific [place] >= 1.030, Urine Protein >=300 H, Urine Ketones NEG, Urine Nitrite NEG, Urine Bilirubin NEG, Urine Urobilinogen 0.2, Ur Leukocyte Esterase NEG, Ur Microscopic SEDIMENT EXAMINED, Urine RBC 1-3, Urine WBC 1-3 H, Ur Epithelial Cells FEW, Urine Bacteria FEW H, Hyaline Casts 1-3 H, Urine Mucus FEW, Urine Hemoglobin TRACE-INTACT, Urine Glucose NEG 09/23/17 1422: Anion Gap 12, Estimated GFR 29 L, BUN/Creatinine Ratio 17.1, Glucose 121 H, Calcium 9.6, Total Bilirubin 0.6, AST 20, ALT 27, Alkaline Phosphatase 69, Troponin I 0.05, Total Protein 6.9, Albumin 4.0, Globulin 2.9, Albumin/Globulin Ratio 1.4, TSH &T3 &Free T4 Intrp 2.810, CBC w Diff MAN DIFF ORDERED, RBC 4.39, MCV 85.4, MCH 29.4, MCHC 34.4, RDW 13.6, MPV 6.3 L, Gran % 89.5 H, Lymphocytes % 5.6 L, Monocytes % 4.4, Eosinophils % 0.5, Basophils % 0, Absolute Granulocytes 15.4 H, Segmented Neutrophils 88 H, Band Neutrophils 3, Absolute Lymphocytes 1.0 L, Lymphocytes 7 L, Monocytes 1 L, Absolute Monocytes 0.8 H, Eosinophils 1, Absolute Eosinophils 0.1, Absolute Basophils 0, Platelet Estimate ADEQUATE, Normocytic RBCs VERIFIED, Normochromic RBCs VERIFIED, Basophilic Stippling RARE Microbiology 09/24 2243 LOWER RESP: Respiratory Culture - COLB 09/24 2243 LOWER RESP: Gram Stain - COLB 09/23 194 BLOOD: Blood Culture - RECD 09/24 1919 BLOOD: Blood Culture - RECD 09/23 1809 URINE ROUT: Urine Culture - RECD Assessment/Plan Assessment: Patient is a 77-year-old female with past medical history of hypertension, hyperlipidemia, COPD, non-small cell lung cancer status post chemotherapy and radiation, anxiety, recent admission on 09/19 for weakness and syncope presenting this admission with chief complaint of recurrent syncopal episodes. Patient will be admitted to the telemetry floor for management of the followin. Recurrent syncopal episodes 2. Orthostatic hypotension- may be secondary to volume depletion vs medication induced (gabapentin, metalazone) vs secondary to Parkinsons 3. CHAS - Cr: 1.7, this may be patient's new baseline 4. Leukocytosis - unclear etiology 5. History of DM, HTN, HLD, COPD, nonsmall cell lung cancer, anxiety Plan: Admit to telemetry Continuous telemetry monitoring Repeat EKG and trop in AM Recent ECHO showing LVEF of 50% with mild - no need to repeat at this time Recent Head and Neck CTA - IV fluid hydration Repeat orthostatic vitals Neurology consult for recurrent syncopal episodes placed Hold metalazone and gabapentin and amlodipine Continue pravastatin, sinemet, ropinerole Hold oral hypoglycemic agents Insulin low dose SS with Accuchecks Continue albuterol, incruse ellipta (substituted with spiriva in hospital) Nephrology consult Strict I/O Avoid nephrotoxic agents Repeat BEP and CBC Fall, seizure, aspiration precautions DVT PPx: heparin SQ, ALPS Diet: consistent carbohydrate diet Code: full code As Ranked By This Provider Problem List: 1. Syncope 2. Orthostasis 3. Leukocytosis 4. Acute kidney injury Core Measures/Misc (02/09) Acute Coronary Syndrome ACS Diagnosis: No Congestive Heart Failure Congestive Heart Failure Diagnosis No Cerebrovascular Accident CVA/TIA Diagnosis: No VTE (View Protocol) VTE Risk Factors Age>40 No Mechanical VTE Prophylaxis d/t N/A MechProphylax Ordered No VTE Pharm Prophylaxis d/t NA PharmProphylax ordered Sepsis (View protocol) Sepsis Present: No Marv Mancia 09/23/17 2314: Resident Review Statement Resident Statement: examined this patient, discussed with learning and development intern, agreed with learning and development intern, discussed with family, reviewed EMR data (avail), discussed with nursing , discussed with case mgmt, reviewed images, amended to note Other Findings: This is 77-year-old female with a medical history of Parkinson's disease, hypertension, hyperlipidemia, anxiety, COPD on 2 L home oxygen, non-small cell lung cancer status post chemoradiation. She presented to the emergency department with a chief complain off syncope and loss of consciousness. Patient was recently discharged from [facility] yesterday, she was treated for syncope and elevated troponin that was type II TX with underlying acute and chronic kidney disease. The patient and her stated that she did not belt picker the new medication that she was discharged on [Norvasc], and she denied using her losartan. They stated that She was trying to set on the chair and she passed out she denied any chest pain or heart racing, a revision, shortness of breath prior or after the episode. of note the EMS reported that her BP was intially 60s via doppler that improve after that to 80s and 120/70 on arrival to the emergency department. She reported that she wasn't drinking enough water since discharge. She had extensive cardiac workup for her initial syncopal presentation, altered came back within acceptable normal limits. Her ejection fraction with 50%. and she did not have any abnormal rhythm recorded on the monitor during her previous admission and no syncopal episode. Patient has positive orthostatic vital signs in the ED also she received a dose of IV ceftriaxone and azithromycin. Physical examination, lab and imaging as above. Problem list: - Recurrent syncopal episode - Orthostatic hypotension 2/2 autonomic instability in Parkinson's patient versus volume depletion. - Acute on chronic kidney disease - Leukocytosis Plan: - Admit to Telemetry - Vitals every shift, high risk fall precaution - Check EKG and troponin in AM - IV hydration with normal saline 100 mL/h - Recheck orthostats in AM - Obtain a blood, urine and sputum culture, watch off antibiotics - Consult Neurology in AM - Hold metoprolol, amlodipine and metolazone - Nephrology consultation in a.m. - MRI of the brain to rule out any brain metastases. - Physical therapy consultation in a.m. - Pain pathway - DVT prophylaxis subcutaneous heparin - Full code Ketan BENITEZ, [facility] 09/23/17 2330: Attending MD Review Statement Attending Statement Attending MD Statement: examined this patient, discuss w/resident/PA/SALES CENTER ASSOCIATE, agreed w/resident/PA/SALES CENTER ASSOCIATE, discussed with family, reviewed images, amended to note Attending Assessment/Plan: 77 yo F with h/o Parkinson's disease, HTN, HLD, anxiety, COPD on 2L O2, NSCLC s/ p chemo-radiation, progressive right lung atelectasis and collapse s/p endobronchial stenting without significant improvement, nonobstructive carotid stenosis, was discharged one day prior (September 22) after being worked up for syncope, CHAS, demand ischemia and PE that was ruled out. Patient was discharged off the losartan and amlodipine was added to regimen but patient had not picked up the new script yet. She remains on metoprolol and metolazone. Today she returns due to multiple episodes of syncope as witnessed by family lasting few minutes each time. Patient has no recollection of the events. No seizure like activity. When EMS arrived, her BP was 60's on doppler, on ER arrival she was 90's on doppler. She has mild cough nonproductive, but denied chest pain, dizziness, lightheadedness, palpitations or dyspnea. She denied any prodromal symptoms. She has chronic LE edema and orthopnea which has not changed. Vitals stable BP increased to 124/56 after 1 L NS bolus. Orthostats: Lying 140/ 58 --> Sitting 121/60 --> Standing 92/50 patient denied lightheadedness or dizziness on standing. Exam unremarkable except for dry mucosa and LE edema ( chronic). Labs: WBC 17.2, H/H 12.9/37.4, Plt 300, bands 3, bicarb 32, BUN 29, creat 1.7 ( baseline unknown but it was 0.9 in 2013, 1.6 on September 15 --> 2.3 on September 18 --> 1.7 on September 22, trop neg. TSH normal. UA proteinuria, WBC 1-3, few bacteria. CXR: stable chronic changes of volume loss of right hemithorax with dense consolidation mid to lower lung and probable right effusion unchanged since prior xray. No acute abnormality. CT chest (Feb 2017): post radiation fibrosis and scarring with resultant volume loss and shift of mediastinum to right. Complex appearing right pleural effusion and multiple scattered groundglass opacity in b/l lungs, all chronic changes. EKG: sinus rhythm, RBBB, LVH, diffuse TWI in V2-6 (old), Qtc 499. Echo (2018): EF 50%. Assessment and plan: 1. Recurrent syncope 2. Orthostatic hypotension 2/2 autonomic instability in Parkinson's patient 3. Chronic RBBB 4. H/o HTN, nonobstructive carotid stenosis and mild cardiomyopathy 5. CHAS superimposed on CKD 6. Leukocytosis, no clear source of infection CXR chronic changes 7. H/o NSCLC s/p chemoradiation - Admit to Telemetry - Watch for arrhythmias - Check EKG and troponin in AM - IV hydration with normal saline - Recheck orthostats in AM - Consult Neurology in AM - Hold metoprolol, amlodipine and metolazone - Consider adding midodrine - Trend renal functions, follow up with Nephro consult - Panculture, but watch off antibiotics - Consider MRI brain to assess for any new brain mets on this patient with NSCLC - CXR was compared to previous CT and findings appear similar. Patient received ceftaz and azithro for pneumonia, however these findings are old hence will watch off abx. - PT eval DVT ppx Hep SC. Full code.
[2017-09-24 06:56] VITALS: BP 150/74
--- NOTE | 2017-09-24 07:41 | PN- Housestaff ---
Rcihard BENITEZ,Benedicto 09/24/17 0741: Subjective Follow-up For: Syncope Complaints: no complaints Tele-Events Since Last Visit: No arrhythmia, normal sinus rhythm, heart rate well controlled. Subjective: I saw and examined the patient today. She is resting comfortably in bed, does not appear to be in any distress, and does not offer any complaints either. Overnight events: No nursing issues, no chest pain, palpitation, dizziness. however, the patient did mention that she feels dizzy when she stands up abruptly from her laying position. Review of Systems Constitutional: Reports: see HPI. Objective Last 24 Hrs of Vital Signs/I&O Vital Signs Date Time Temp Pulse Resp B/P B/P Pulse O2 O2 Flow FiO2 Mean Ox Delivery Rate 09/24 1411 99.1 99 18 156/90 98 Room Air 09/24 0949 Room Air Room Air 09/24 0656 98.2 86 16 150/74 97 Room Air 09/23 2100 98.2 86 16 142/72 99 Room Air 09/23 2048 97.4 78 16 124/56 96 Room Air 09/23 1841 98.5 72 18 139/62 97 Room Air Room Air 09/23 1621 64 18 119/59 97 Room Air Room Air 09/23 1549 78 18 139/78 97 Room Air Room Air 09/23 1450 75 18 140/63 96 Room Air Room Air 09/23 1447 74 120/60 Intake & Output 09/24 1600 /02 0800 09/24 0000 Intake Total 400 Output Total 200 Balance 400 -200 Intake, IV 400 Output, Urine 200 Patient 74.928 kg Weight Weight Bed scale Measurement Method Physical Exam General Appearance: Alert, Oriented X3, Cooperative, No Acute Distress, obese Other Physical Findings: Skin Temp/Moisture Exam: Warm/Dry Sepsis Skin Exam (color): Normal for Ethnicity HEENT: Atraumatic, PERRLA, EOMI, Mucous Membr. moist/pink Cardiovascular: Regular Rate, Normal S1, Normal S2, No Murmurs Lungs: Clear to Auscultation, Normal Air Movement Abdomen: Normal Bowel Sounds, Soft, No Tenderness Neurological: grossly intact Current Medications: Current Medications Sig/Liliya Start time Last Medication Dose Route Stop Time Status Admin Acetaminophen 650 MG Q6P PRN 09/23 2230 AC PO Acetaminophen 1,000 MG Q6P PRN 09/23 2230 AC IV Albuterol Sulfate 2 PUF Q4-6 PRN PRN 09/23 2245 AC INH Azithromycin 500 MG ONCE ONE 09/23 1914 DC 09/23 Sodium Chloride 250 ML IV 09/23 Buspirone HCl 30 MG QPM 09/24 2100 AC PO Buspirone HCl 15 MG QAM 09/24 0900 AC 09/24 PO 1032 Carbidopa/Levodopa 1 TAB TID 09/23 2300 AC 09/24 PO 0631 Ceftazidime 0 .STK-MED ONE 09/23 194 DC .ROUTE Ceftazidime 1,000 MG ONCE ONE 09/23 191 DC 09/23 IV 09/23 1912005 Heparin Sodium 5,000 UNIT Q8 09/23 2300 AC 09/24 (Porcine) SC 0631 Insulin Aspart 0 AT BEDTIME 09/24 2100 AC SC Insulin Aspart 0 TIDAC 09/24 0800 AC SC Nystatin 1 JOSEPHINE TID 09/24 0417 AC 09/24 TOP 1042 Pravastatin Sodium 40 MG 1700 09/24 1700 AC PO Ropinirole HCl 1 MG BID 09/23 2330 AC 09/24 PO 0633 Sodium Chloride 1,000 ML .Q10H 09/23 2230 DC 09/24 IV 09/24 0829 0205 Sodium Chloride 1,000 ML BOLUS ONE 09/23 1430 DC 09/23 IV 09/23 1529 1428 Tiotropium [place] 1 PUF DAILY 09/24 0900 AC 09/24 INH 1032 Venlafaxine HCl 75 MG DAILY 09/24 0900 AC 09/24 PO 1032 Last 24 Hrs of Lab/Elias Results Last 24 Hrs of Labs/Mics: Laboratory Tests 09/24/17 0630: Anion Gap 11, Estimated GFR 27 L, BUN/Creatinine Ratio 16.7, Troponin I 0.06, CBC w Diff NO MAN DIFF REQ, RBC 3.83 L, MCV 86.3, MCH 28.9, MCHC 33.5, RDW 14.1 , MPV 6.6 L, Gran % 79.9 H, Lymphocytes % 11.6 L, Monocytes % 6.6, Eosinophils % 1.6, Basophils % 0.3, Absolute Granulocytes 7.2 H, Absolute Lymphocytes 1.0 L, Absolute Monocytes 0.6, Absolute Eosinophils 0.1, Absolute Basophils 0 09/23/171809: Urinalysis MOD H, Urine Color YEL, Urine Clarity CLEAR, Urine pH 6.5, Ur Specific [place] >= 1.030, Urine Protein >=300 H, Urine Ketones NEG, Urine Nitrite NEG, Urine Bilirubin NEG, Urine Urobilinogen 0.2, Ur Leukocyte Esterase NEG, Ur Microscopic SEDIMENT EXAMINED, Urine RBC 1-3, Urine WBC 1-3 H, Ur Epithelial Cells FEW, Urine Bacteria FEW H, Hyaline Casts 1-3 H, Urine Mucus FEW, Urine Hemoglobin TRACE-INTACT, Urine Glucose NEG Microbiology 09/24 2243 LOWER RESP: Respiratory Culture - CAN Cancelled: SPECIMEN NOT RECEIVED IN LABORATORY 09/24 2243 LOWER RESP: Gram Stain - CAN Cancelled: SPECIMEN NOT RECEIVED IN LABORATORY 09/24 1943 BLOOD: Blood Culture - RES 09/24 1919 BLOOD: Blood Culture - RES 09/23 1809 URINE ROUT: Urine Culture - RECD Assessment/Plan Assessment: 77-year-old female with past medical history of COPD not on oxygen, mild cardiomyopathy, venous insufficiency, right bundle branch block, ex-smoker (quit 8yrs) non-small cell lung cancer status post chemotherapy/radiation 8 yrs ago, nonobstructive carotid stenosis, hypertension, hyperlipidemia, was brought in to the emergency after her recent discharge from the same day, after working up for syncopal episodes. Of note, during her recent hospital admission, she did not have any presyncope or syncopal episodes. Her cardiac examination, and telemetry was uneventful, and she did not have any focal neurologic deficits either. Patient is currently admitted in the telemetry be floor for the management of following issues: #Syncope This time as well, patient's condition remains stable, and the cause of the syncope is still under investigation. She does not have any arrhythmias, any focal neurologic deficit, and was eating and drinking well, and clinically does not appear to be dehydrated although she has an AK I with BUN/creatinine 30/1.8 today. Her orthostatics were positive, making orthostatic hypotension as the cause of (pre)syncope. We are getting Carotid Ultrasound today to see for any stenosis as a pre-disposing condition. Cardiology consultation appreciated. #Acute renal failure Her HPI is most likely due to prerenal condition, but she has been eating and drinking well now. Nephrology has been on board, awaiting recommendations. #HTN Anti HTN meds are on hold for now. #Will continue rest of her home meds. Reconcilation done. #Diet: CC3 diet #DVT ppx: SQ Heparin #Code status: Full code Problem List: 1. Syncope 2. Orthostatic hypotension Pain Ratin Pain Location: - Pain Goal: Pain 4 or less Pain Plan: prn Tomorrow's Labs & Rationales: JAZMIN Андрей Ta 09/24/17 1102: Attending MD Review Statement Attending Statement Attending MD Statement: examined this patient, discuss w/resident/PA/FUSE CUP EXPANDER, agreed w/resident/PA/FUSE CUP EXPANDER, discussed with family, reviewed EMR data (avail), discussed with nursing, discussed with case mgmt, reviewed images, amended to note Attending Assessment/Plan: Patient seen/examined bedside. Patient here in telemetry for recurrent syncope and renal insufficiency. Patient deneis chest pain, palpitations. She has history of non small cell lung cancer with chest xray findings unchanged from prior without fever or leukocytosis. Patient is on maintanance therapy for parkinson disease. Cardiology consulted and recommend orhtostasis every shift and carotid USG. Recent ECHO with no obvius wall motion deformity and V/Q scan neagtive for PE. Patient might benefit from event monitor/loop recorder as outpatient.
[2017-09-24 09:04] LABS: ABSOLUTE BASOPHIL COUNT 0 /CUMM (0.0-0.2); ABSOLUTE EOSINOPHIL COUNT 0.1 /CUMM (0.0-0.7); ABSOLUTE GRANULOCYTE CT 7.2 /CUMM (1.4-6.5); ABSOLUTE MONOCYTE COUNT 0.6 /CUMM (0.10-0.60); BASOPHIL % 0.3 % (0.0-2.0); EOSINOPHIL % 1.6 % (0-5); GRANULOCYTE % 79.9 % (42.2-75.2); HEMATOCRIT 33.1 % (37-47); MEAN CORPUSCULAR HGB 28.9 PG (27.0-31.0); MEAN CORPUSCULAR HGB CONC 33.5 G/DL (33.0-37.0); MEAN CORPUSCULAR VOLUME 86.3 FL (81.0-99.0); MEAN PLATELET VOLUME 6.6 FL (7.4-10.4); PLATELET COUNT 254 /CUMM (130-400); RBC DISTRIBUTION WIDTH 14.1 % (11.5-14.5); RED BLOOD CELL CT 3.83 /CUMM (4.20-5.40)
--- NOTE | 2017-09-24 11:16 | Cons- Cardiology ---
General Information and HPI Consulting Request Date of Consult: 09/24/17 Requested By: Андрей Ta MD Reason for Consult: Syncope Source of Information: patient, old records History of Present Illness: This is a pleasant 77-year-old female with a past medical history of COPD, mild cardiomyopathy, venous insufficiency, right bundle branch block, non-small cell lung CA with prior chemo/radiation, abnormal nuclear stress test in the past showing possible infarct versus artifact, nonobstructive carotid stenosis, hypertension, and hyperlipidemia who was recently discharged after an episode of lethargy and renal insufficiency but returns with an episode of loss of consciousness. Per the patient she does not remember the episode well but believes she was trying to stand up when she lost consciousness for a short period of time; denied associated palpitations, dizziness, chest pain, or shortness of breath. No reported incontinence or seizure activity. She was eating well and denies any subjective fever, nausea, vomiting, or diarrhea. Prior to the episode she says she was ambulating well without symptoms. She had been discharged on new blood pressure medication but reports she had not started that medication yet. Allergies/Medications Allergies: Coded Allergies: NO KNOWN ALLERGIES (10/20/13) Home Med List: Albuterol Sulfate (Proair Hfa) 90 MCG HFA.AER.AD 2 PUF INH Q4-6 PRN PRN SHORTNESS OF BREATH (Reported) Amlodipine Besylate 5 MG TABLET 1 TAB PO DAILY HTN . Buspirone HCl 15 MG TABLET 1 TAB PO QAM MENTAL HEALTH (Reported) Buspirone HCl 30 MG TABLET 1 TAB PO QPM MENTAL HEALTH (Reported) Carbidopa/Levodopa (Sinemet 25-100 MG Tablet) 25 MG-100 MG TABLET 1 TAB PO TID PARKINSONISM (Reported) Gabapentin (Neurontin) 100 MG CAPSULE 1 CAP PO TID . (Reported) Metformin HCl (Metformin HCl ER) 1,000 MG TAB.ER.24 1 TAB PO DAILY DM ( Reported) Metolazone 2.5 MG TABLET 1 TAB PO QFRIDAY . (Reported) Metoprolol Succinate 50 MG TAB.ER.24H 1 TAB PO DAILY HEART/BP (Reported) Pravastatin Sodium 40 MG TABLET 1 TAB PO DAILY HLD (Reported) Prochlorperazine Maleate 10 MG TABLET 1 TAB PO Q6 PRN NAUSEA/VOMITING ( Reported) Ropinirole HCl 1 MG TABLET 1 TAB PO Q1400, 2100 MENTAL HEALTH (Reported) Tramadol HCl 50 MG TABLET 1 TAB PO TIDPRN PRN PAIN (Reported) Umeclidinium [place] (Incruse Ellipta) 62.5 MCG/ACTUATION BLST.W.DEV 1 PUFF INH DAILY COPD (Reported) Venlafaxine HCl (Venlafaxine HCl ER) 75 MG CAP.ER.24H 1 CAP PO DAILY MENTAL HEALTH (Reported) Current Medications: Current Medications Sig/Liliya Start time Last Medication Dose Route Stop Time Status Admin Acetaminophen 650 MG Q6P PRN 09/23 2230 AC PO Acetaminophen 1,000 MG Q6P PRN 09/23 2230 AC IV Albuterol Sulfate 2 PUF Q4-6 PRN PRN 09/23 2245 AC INH Azithromycin 500 MG ONCE ONE 09/23 1914 DC 09/23 Sodium Chloride 250 ML IV 09/23 Buspirone HCl 30 MG QPM 09/24 2100 AC PO Buspirone HCl 15 MG QAM 09/24 0900 AC 09/24 PO 1032 Carbidopa/Levodopa 1 TAB TID 09/23 2300 AC 09/24 PO 0631 Ceftazidime 0 .STK-MED ONE 09/23 1948 DC .ROUTE Ceftazidime 1,000 MG ONCE ONE 09/23 191 DC 09/23 IV 09/23 191 2006 Heparin Sodium 5,000 UNIT Q8 09/23 2300 AC 09/24 (Porcine) SC 0631 Insulin Aspart 0 AT BEDTIME 09/24 2100 AC SC Insulin Aspart 0 TIDAC 09/24 0800 AC SC Nystatin 1 JOSEPHINE TID 09/24 0417 AC 09/24 TOP 1042 Pravastatin Sodium 40 MG 1700 09/24 1700 AC PO Ropinirole HCl 1 MG BID 09/23 2330 AC 09/24 PO 0633 Sodium Chloride 1,000 ML .Q10H 09/23 2230 DC 09/24 IV 09/24 0829 0205 Sodium Chloride 1,000 ML BOLUS ONE 09/23 1430 DC 09/23 IV 09/23 1529 1428 Tiotropium [place] 1 PUF DAILY 09/24 0900 AC 09/24 INH 1032 Venlafaxine HCl 75 MG DAILY 09/24 0900 AC 09/24 PO 1032 Review of Systems Review of Systems: Review of systems as per HPI. The remainder of a 10 point review of systems was reviewed and was otherwise negative. Past History Travel History Traveled to [place] past 21 day No Medical History Blood Transfusion Hx: No Neurological: NONE EENT: NONE Cardiovascular: hypertension, hyperlipidemia, hypertension Respiratory: NONE Gastrointestinal: NONE Hepatic: NONE Renal: NONE Musculoskeletal: NONE Psychiatric: NONE Endocrine: borderline diabetes Surgical History Surgical History: non-contributory Family History Relations & Conditions If Any: FATHER (cancer pancreas). Relation not specified for: FH: Alzheimers disease FH: bipolar disorder FH: cancer FH: heart attack FHx: stroke Hypertension Psychosocial History Services at Home: None Smoking Status: Former Smoker Exam & Diagnostic Data Vital Signs and I&O Vital Signs Date Time Temp Pulse Resp B/P B/P Pulse O2 O2 Flow FiO2 Mean Ox Delivery Rate 09/24 0949 Room Air Room Air 09/24 0656 98.2 86 16 150/74 97 Room Air 09/23 2100 98.2 86 16 142/72 99 Room Air 09/23 2048 97.4 78 16 124/56 96 Room Air 09/23 1841 98.5 72 18 139/62 97 Room Air Room Air 09/23 1621 64 18 119/59 97 Room Air Room Air 09/23 1549 78 18 139/78 97 Room Air Room Air 09/23 1450 75 18 140/63 96 Room Air Room Air 09/23 1447 74 120/60 09/23 1430 72 16 134/71 97 Room Air 09/23 1425 98 Room Air 09/23 1419 78 18 124/78 98 Room Air 09/23 1405 97.0 74 18 90/00 98 Room Air Intake & Output 09/24 1600 09/24 0800 09/24 0000 09/23 1600 09/23 0800 09/23 0000 Intake Total 400 1000 Output Total 200 Balance 400 -200 1000 Intake, IV 400 1000 Output, Urine 200 Patient 165 lb Weight Weight Bed scale Measurement Method Physical Exam: General: no apparent distress. Alert. Eyes: No obvious scleral icterus. HEENT: No jugular venous distention or abnormal jugular venous pulsations. Cardiovascular: Normal intensity S1/S2. Regular Respiratory: Lungs clear to auscultation bilaterally. Abdomen: Soft, nontender with no guarding or rebound tenderness. Musculoskeletal: No clubbing or cyanosis noted Skin: warm Neurologic: No gross focal deficits noted. Lymph: No gross lymphadenopathy. Labs/Elias Results: Laboratory Tests 09/24 09/23 0630 1810 Chemistry Sodium (137 - 145 mmol/L) 138 Potassium (3.5 - 5.1 mmol/L) 3.5 Chloride (98 - 107 mmol/L) 100 Carbon Dioxide (22 - 30 mmol/L) 28 Anion Gap (5 - 16) 11 BUN (7 - 17 mg/dL) 30 H Creatinine (0.5 - 1.0 mg/dL) 1.8 H Estimated GFR (>60 ml/min) 27 L BUN/Creatinine Ratio (7 - 25 %) 16.7 Troponin I (< 0.11 ng/ml) 0.06 Hematology CBC w Diff NO MAN DIFF REQ WBC (4.8 - 10.8 /CUMM) 9.0 RBC (4.20 - 5.40 /CUMM) 3.83 L Hgb (12.0 - 16.0 G/DL) 11.1 L Hct (37 - 47 %) 33.1 L MCV (81.0 - 99.0 FL) 86.3 MCH (27.0 - 31.0 PG) 28.9 MCHC (33.0 - 37.0 G/DL) 33.5 RDW (11.5 - 14.5 %) 14.1 Plt Count (130 - 400 /CUMM) 254 MPV (7.4 - 10.4 FL) 6.6 L Gran % (42.2 - 75.2 %) 79.9 H Lymphocytes % (20.5 - 51.1 %) 11.6 L Monocytes % (1.7 - 9.3 %) 6.6 Eosinophils % (0 - 5 %) 1.6 Basophils % (0.0 - 2.0 %) 0.3 Absolute Granulocytes (1.4 - 6.5 /CUMM) 7.2 H Absolute Lymphocytes (1.2 - 3.4 /CUMM) 1.0 L Absolute Monocytes (0.10 - 0.60 /CUMM) 0.6 Absolute Eosinophils (0.0 - 0.7 /CUMM) 0.1 Absolute Basophils (0.0 - 0.2 /CUMM) 0 Urines Urinalysis MOD H Urine Color (YEL,AMB,STR) YEL Urine Clarity (CLEAR) CLEAR Urine pH (5.0 - 8.0) 6.5 Ur Specific [place] (1.001 - 1.035) >= 1.030 Urine Protein (NEG,<30 MG/DL) >=300 H Urine Ketones (NEG) NEG Urine Nitrite (NEG) NEG Urine Bilirubin (NEG) NEG Urine Urobilinogen (0.1 - 1.0 EU/dl) 0.2 Ur Leukocyte Esterase (NEG) NEG Ur Microscopic SEDIMENT EXAMINED Urine RBC (0 - 5 /HPF) 1-3 Urine WBC (0 - 2 /HPF) 1-3 H Ur Epithelial Cells (NONE,FEW) FEW Urine Bacteria (NEG/NONE) FEW H Hyaline Casts (0/LPF) 1-3 H Urine Mucus (FEW,NONE) FEW Urine Hemoglobin (NEG) TRACE-INTACT Urine Glucose (N MG/DL) NEG 09/23 1422 Chemistry Sodium (137 - 145 mmol/L) 137 Potassium (3.5 - 5.1 mmol/L) 3.9 Chloride (98 - 107 mmol/L) 93 L Carbon Dioxide (22 - 30 mmol/L) 32 H Anion Gap (5 - 16) 12 BUN (7 - 17 mg/dL) 29 H Creatinine (0.5 - 1.0 mg/dL) 1.7 H Estimated GFR (>60 ml/min) 29 L BUN/Creatinine Ratio (7 - 25 %) 17.1 Glucose (65 - 99 mg/dL) 121 H Calcium (8.4 - 10.2 mg/dL) 9.6 Total Bilirubin (0.2 - 1.3 mg/dL) 0.6 AST (14 - 36 U/L) 20 ALT (9 - 52 U/L) 27 Alkaline Phosphatase (<127 U/L) 69 Troponin I (< 0.11 ng/ml) 0.05 Total Protein (6.3 - 8.2 g/dL) 6.9 Albumin (3.5 - 5.0 g/dL) 4.0 Globulin (1.9 - 4.2 gm/dL) 2.9 Albumin/Globulin Ratio (1.1 - 2.2 %) 1.4 TSH &T3 &Free T4 Intrp (0.270 - 4.20 uIU/mL) 2.810 Hematology CBC w Diff MAN DIFF ORDERED WBC (4.8 - 10.8 /CUMM) 17.2 H RBC (4.20 - 5.40 /CUMM) 4.39 Hgb (12.0 - 16.0 G/DL) 12.9 Hct (37 - 47 %) 37.4 MCV (81.0 - 99.0 FL) 85.4 MCH (27.0 - 31.0 PG) 29.4 MCHC (33.0 - 37.0 G/DL) 34.4 RDW (11.5 - 14.5 %) 13.6 Plt Count (130 - 400 /CUMM) 300 MPV (7.4 - 10.4 FL) 6.3 L Gran % (42.2 - 75.2 %) 89.5 H Lymphocytes % (20.5 - 51.1 %) 5.6 L Monocytes % (1.7 - 9.3 %) 4.4 Eosinophils % (0 - 5 %) 0.5 Basophils % (0.0 - 2.0 %) 0 Absolute Granulocytes (1.4 - 6.5 /CUMM) 15.4 H Segmented Neutrophils (42.2 - 75.2 %) 88 H Band Neutrophils (0.0 - 5.0 %) 3 Absolute Lymphocytes (1.2 - 3.4 /CUMM) 1.0 L Lymphocytes (20.5 - 51.1 %) 7 L Monocytes (1.7 - 9.3 %) 1 L Absolute Monocytes (0.10 - 0.60 /CUMM) 0.8 H Eosinophils (0 - 5.0 %) 1 Absolute Eosinophils (0.0 - 0.7 /CUMM) 0.1 Absolute Basophils (0.0 - 0.2 /CUMM) 0 Platelet Estimate (ADEQUATE) ADEQUATE Normocytic RBCs VERIFIED Normochromic RBCs VERIFIED Basophilic Stippling RARE Diagnostic Data EKG Results Tracing was personally reviewed and shows sinus rhythm with bundle branch block and nonspecific T-wave abnormality CXR Results 1. Stable chronic changes of volume loss of the right hemithorax with dense consolidation mid to lower lung and probable right effusion unchanged since prior chest x-ray 09/18/2017. 2. No acute abnormality. Other Results Telemetry tracings were personally reviewed and shows sinus rhythm Echo: Technically difficult study. Left ventricular cavity size normal. Left ventricular wall thickness mildly increased. No obvious regional wall motion abnormalities. Left ventricular ejection fraction is estimated at 50 %. Right ventricle not well visualized, grossly normal. Left atrial size at the upper limits of normal. Unable to estimate the right ventricular systolic pressure. No pericardial effusion. Joe Whitfield M.D. (Electronically Signed) Final Date: 19 September 2017 16:09 Assessment/Plan Assessment/Plan 1. Renal insufficiency, chronic 2. Syncope; recurrent 3. History of nonobstructive carotid disease 4. Known right bundle branch block 5. COPD 6. History of non-small cell lung cancer 7. History of hypertension/hyperlipidemia 8. History of mild cardiomyopathy in the past with possible infarct versus artifact on nuclear stress test 9. Parkinson's disease The patient's syncopal episode is of unclear etiology but may have been due to orthostasis in the setting of autonomic dysfunction. Recommend checking orthostatics every shift. Recommend obtaining a carotid ultrasound given her history although the likelihood that this is due to severe obstructive carotid stenosis is low. She does not appear particularly hypovolemic. Monitor on telemetry given her known history of conduction disease on ECG. Recent echocardiogram as above which does not need to be repeated at this time. Pulmonary embolism was excluded by recent VQ scan. She may be a candidate for outpatient event monitor versus implantable loop recorder and repeat noninvasive ischemic testing. Twan Whitfield MD [facility] Consult Acknowledgment - Thank you for your consult request.
[2017-09-24 14:11] VITALS: BP 156/90
--- NOTE | 2017-09-24 15:00 | Cons- Neurology ---
General Information and HPI Consulting Request Date of Consult: 09/24/17 Requested By: Cely BENITEZ,Андрей History of Present Illness: 77-year-old female admitted with recurrent episodes of loss of consciousness Patient states that she had a similar problem for which she was admitted to Hospital almost a week ago She recalls that she had up from a chair and then suddenly fell to the ground She states that she lost consciousness but for unclear duration likely a few minutes She again had similar events after discharge which prompted readmission Episode again occurred when she stood up from a chair She denies any prodrome including dizziness There is no clear history of post event confusion There has been no injury with any of these falls There was no accompanying nausea or vomiting or focal weakness In the ED blood pressure was apparently relatively low Allergies/Medications Allergies: Coded Allergies: NO KNOWN ALLERGIES (10/20/13) Home Med List: Albuterol Sulfate (Proair Hfa) 90 MCG HFA.AER.AD 2 PUF INH Q4-6 PRN PRN SHORTNESS OF BREATH (Reported) Amlodipine Besylate 5 MG TABLET 1 TAB PO DAILY HTN . Buspirone HCl 15 MG TABLET 1 TAB PO QAM MENTAL HEALTH (Reported) Buspirone HCl 30 MG TABLET 1 TAB PO QPM MENTAL HEALTH (Reported) Carbidopa/Levodopa (Sinemet 25-100 MG Tablet) 25 MG-100 MG TABLET 1 TAB PO TID PARKINSONISM (Reported) Gabapentin (Neurontin) 100 MG CAPSULE 1 CAP PO TID . (Reported) Metformin HCl (Metformin HCl ER) 1,000 MG TAB.ER.24 1 TAB PO DAILY DM ( Reported) Metolazone 2.5 MG TABLET 1 TAB PO QFRIDAY . (Reported) Metoprolol Succinate 50 MG TAB.ER.24H 1 TAB PO DAILY HEART/BP (Reported) Pravastatin Sodium 40 MG TABLET 1 TAB PO DAILY HLD (Reported) Prochlorperazine Maleate 10 MG TABLET 1 TAB PO Q6 PRN NAUSEA/VOMITING ( Reported) Ropinirole HCl 1 MG TABLET 1 TAB PO Q1400, 2100 MENTAL HEALTH (Reported) Tramadol HCl 50 MG TABLET 1 TAB PO TIDPRN PRN PAIN (Reported) Umeclidinium [place] (Incruse Ellipta) 62.5 MCG/ACTUATION BLST.W.DEV 1 PUFF INH DAILY COPD (Reported) Venlafaxine HCl (Venlafaxine HCl ER) 75 MG CAP.ER.24H 1 CAP PO DAILY MENTAL HEALTH (Reported) Current Medications: Current Medications Sig/Liliya Start time Last Medication Dose Route Stop Time Status Admin Acetaminophen 650 MG Q6P PRN 09/23 2230 AC PO Acetaminophen 1,000 MG Q6P PRN 09/23 2230 AC IV Albuterol Sulfate 2 PUF Q4-6 PRN PRN 09/23 2245 AC INH Azithromycin 500 MG ONCE ONE 09/23 1914 DC 09/23 Sodium Chloride 250 ML IV 09/23 Buspirone HCl 30 MG QPM 09/24 2100 AC PO Buspirone HCl 15 MG QAM 09/24 0900 AC 09/24 PO 1032 Carbidopa/Levodopa 1 TAB TID 09/23 2300 AC 09/24 PO 0631 Ceftazidime 0 .STK-MED ONE 09/23 194 DC .ROUTE Ceftazidime 1,000 MG ONCE ONE 09/23 191 DC 09/23 IV 09/23 191 2006 Heparin Sodium 5,000 UNIT Q8 09/23 2300 AC 09/24 (Porcine) SC 0631 Insulin Aspart 0 AT BEDTIME 09/24 2100 AC SC Insulin Aspart 0 TIDAC 09/24 0800 AC SC Nystatin 1 JOSEPHINE TID 09/24 0417 AC 09/24 TOP 1042 Pravastatin Sodium 40 MG 1700 09/24 1700 AC PO Ropinirole HCl 1 MG BID 09/23 2330 AC 09/24 PO 0633 Sodium Chloride 1,000 ML .Q10H 09/23 2230 DC 09/24 IV 09/24 0829 0205 Sodium Chloride 1,000 ML BOLUS ONE 09/23 1430 DC 09/23 IV 09/23 1529 1428 Tiotropium [place] 1 PUF DAILY 09/24 0900 AC 09/24 INH 1032 Venlafaxine HCl 75 MG DAILY 09/24 0900 AC 09/24 PO 1032 Review of Systems Review of Systems: Denies headache, diplopia, speech difficulty, swallowing difficulty, hearing change Denies chest pain, breathing difficulties, nausea vomiting, incontinence Denies significant swelling in lower extremities or head trauma Other systems reviewed are negative Past History Travel History Traveled to [place] past 21 day No Medical History Blood Transfusion Hx: No Neurological: NONE EENT: NONE Cardiovascular: hypertension, hyperlipidemia, hypertension Respiratory: NONE Gastrointestinal: NONE Hepatic: NONE Renal: NONE Musculoskeletal: NONE Psychiatric: NONE Endocrine: borderline diabetes Surgical History Surgical History: non-contributory Family History Relations & Conditions If Any: FATHER (cancer pancreas). Relation not specified for: FH: Alzheimers disease FH: bipolar disorder FH: cancer FH: heart attack FHx: stroke Hypertension Psychosocial History Services at Home: None Smoking Status: Former Smoker Exam & Diagnostic Data Vital Signs and I&O Vital Signs Date Time Temp Pulse Resp B/P B/P Pulse O2 O2 Flow FiO2 Mean Ox Delivery Rate 09/24 1411 99.1 99 18 156/90 98 Room Air 09/24 0949 Room Air Room Air 09/24 0656 98.2 86 16 150/74 97 Room Air 09/23 2100 98.2 86 16 142/72 99 Room Air 09/23 2048 97.4 78 16 124/56 96 Room Air 09/23 1841 98.5 72 18 139/62 97 Room Air Room Air 09/23 1621 64 18 119/59 97 Room Air Room Air 09/23 1549 78 18 139/78 97 Room Air Room Air 09/23 1450 75 18 140/63 96 Room Air Room Air Intake & Output 09/24 1600 09/24 0800 09/24 0000 Intake Total 400 Output Total 200 Balance 400 -200 Intake, IV 400 Output, Urine 200 Patient 165 lb Weight Weight Bed scale Measurement Method Physical Exam: Alert Oriented to day and place Fund of knowledge mildly impaired Recall mildly impaired No dysarthria Patient comfortable and able to follow all commands Extraocular movements full, pupils equal reactive, fundi benign, visual ellsworth intact, no facial weakness or facial sensory loss, palate tongue and shoulders intact Mild rigidity upper and lower extremities Gross motor strength intact upper and lower extremities No sensory loss to light touch Deep tendon reflexes 1+ bilateral Coordinative functions and gait intact Last 48 Hours of Lab Results: Laboratory Tests 09/24 09/23 0630 1810 Chemistry Sodium (137 - 145 mmol/L) 138 Potassium (3.5 - 5.1 mmol/L) 3.5 Chloride (98 - 107 mmol/L) 100 Carbon Dioxide (22 - 30 mmol/L) 28 Anion Gap (5 - 16) 11 BUN (7 - 17 mg/dL) 30 H Creatinine (0.5 - 1.0 mg/dL) 1.8 H Estimated GFR (>60 ml/min) 27 L BUN/Creatinine Ratio (7 - 25 %) 16.7 Troponin I (< 0.11 ng/ml) 0.06 Hematology CBC w Diff NO MAN DIFF REQ WBC (4.8 - 10.8 /CUMM) 9.0 RBC (4.20 - 5.40 /CUMM) 3.83 L Hgb (12.0 - 16.0 G/DL) 11.1 L Hct (37 - 47 %) 33.1 L MCV (81.0 - 99.0 FL) 86.3 MCH (27.0 - 31.0 PG) 28.9 MCHC (33.0 - 37.0 G/DL) 33.5 RDW (11.5 - 14.5 %) 14.1 Plt Count (130 - 400 /CUMM) 254 MPV (7.4 - 10.4 FL) 6.6 L Gran % (42.2 - 75.2 %) 79.9 H Lymphocytes % (20.5 - 51.1 %) 11.6 L Monocytes % (1.7 - 9.3 %) 6.6 Eosinophils % (0 - 5 %) 1.6 Basophils % (0.0 - 2.0 %) 0.3 Absolute Granulocytes (1.4 - 6.5 /CUMM) 7.2 H Absolute Lymphocytes (1.2 - 3.4 /CUMM) 1.0 L Absolute Monocytes (0.10 - 0.60 /CUMM) 0.6 Absolute Eosinophils (0.0 - 0.7 /CUMM) 0.1 Absolute Basophils (0.0 - 0.2 /CUMM) 0 Urines Urinalysis MOD H Urine Color (YEL,AMB,STR) YEL Urine Clarity (CLEAR) CLEAR Urine pH (5.0 - 8.0) 6.5 Ur Specific [place] (1.001 - 1.035) >= 1.030 Urine Protein (NEG,<30 MG/DL) >=300 H Urine Ketones (NEG) NEG Urine Nitrite (NEG) NEG Urine Bilirubin (NEG) NEG Urine Urobilinogen (0.1 - 1.0 EU/dl) 0.2 Ur Leukocyte Esterase (NEG) NEG Ur Microscopic SEDIMENT EXAMINED Urine RBC (0 - 5 /HPF) 1-3 Urine WBC (0 - 2 /HPF) 1-3 H Ur Epithelial Cells (NONE,FEW) FEW Urine Bacteria (NEG/NONE) FEW H Hyaline Casts (0/LPF) 1-3 H Urine Mucus (FEW,NONE) FEW Urine Hemoglobin (NEG) TRACE-INTACT Urine Glucose (N MG/DL) NEG 09/23 1422 Chemistry Sodium (137 - 145 mmol/L) 137 Potassium (3.5 - 5.1 mmol/L) 3.9 Chloride (98 - 107 mmol/L) 93 L Carbon Dioxide (22 - 30 mmol/L) 32 H Anion Gap (5 - 16) 12 BUN (7 - 17 mg/dL) 29 H Creatinine (0.5 - 1.0 mg/dL) 1.7 H Estimated GFR (>60 ml/min) 29 L BUN/Creatinine Ratio (7 - 25 %) 17.1 Glucose (65 - 99 mg/dL) 121 H Calcium (8.4 - 10.2 mg/dL) 9.6 Total Bilirubin (0.2 - 1.3 mg/dL) 0.6 AST (14 - 36 U/L) 20 ALT (9 - 52 U/L) 27 Alkaline Phosphatase (<127 U/L) 69 Troponin I (< 0.11 ng/ml) 0.05 Total Protein (6.3 - 8.2 g/dL) 6.9 Albumin (3.5 - 5.0 g/dL) 4.0 Globulin (1.9 - 4.2 gm/dL) 2.9 Albumin/Globulin Ratio (1.1 - 2.2 %) 1.4 TSH &T3 &Free T4 Intrp (0.270 - 4.20 uIU/mL) 2.810 Hematology CBC w Diff MAN DIFF ORDERED WBC (4.8 - 10.8 /CUMM) 17.2 H RBC (4.20 - 5.40 /CUMM) 4.39 Hgb (12.0 - 16.0 G/DL) 12.9 Hct (37 - 47 %) 37.4 MCV (81.0 - 99.0 FL) 85.4 MCH (27.0 - 31.0 PG) 29.4 MCHC (33.0 - 37.0 G/DL) 34.4 RDW (11.5 - 14.5 %) 13.6 Plt Count (130 - 400 /CUMM) 300 MPV (7.4 - 10.4 FL) 6.3 L Gran % (42.2 - 75.2 %) 89.5 H Lymphocytes % (20.5 - 51.1 %) 5.6 L Monocytes % (1.7 - 9.3 %) 4.4 Eosinophils % (0 - 5 %) 0.5 Basophils % (0.0 - 2.0 %) 0 Absolute Granulocytes (1.4 - 6.5 /CUMM) 15.4 H Segmented Neutrophils (42.2 - 75.2 %) 88 H Band Neutrophils (0.0 - 5.0 %) 3 Absolute Lymphocytes (1.2 - 3.4 /CUMM) 1.0 L Lymphocytes (20.5 - 51.1 %) 7 L Monocytes (1.7 - 9.3 %) 1 L Absolute Monocytes (0.10 - 0.60 /CUMM) 0.8 H Eosinophils (0 - 5.0 %) 1 Absolute Eosinophils (0.0 - 0.7 /CUMM) 0.1 Absolute Basophils (0.0 - 0.2 /CUMM) 0 Platelet Estimate (ADEQUATE) ADEQUATE Normocytic RBCs VERIFIED Normochromic RBCs VERIFIED Basophilic Stippling RARE Imaging/Other Studies: CXR IMPRESSION: 1. Stable chronic changes of volume loss of the right hemithorax with dense consolidation mid to lower lung and probable right effusion unchanged since prior chest x-ray 09/18/2017. 2. No acute abnormality. Assessment/Plan Assessment: Per patient's history episodes appear to resemble Drop attacks Recommendations: Continue to monitor orthostasis If episodes continue and no orthostasis detected consider tilt table evaluation If both negative consider EEG to assess for possibility of epileptic drop attacks Reduce drugs that can cause hypotension Trial of florinef if persistent orthostatic changes Consult Acknowledgment - Thank you for your consult request.
--- NOTE | 2017-09-24 15:57 | ULTRASOUND REPORT ---
EXAMINATION: DUPLEX BILATERAL CAROTID ULTRASOUND CLINICAL INFORMATION: Syncope COMPARISON: None. TECHNIQUE: Duplex bilateral carotid US was performed using real-time ultrasound and Doppler techniques (integrating B-mode 2D vascular images, Doppler spectral analysis and color flow Doppler imaging). These techniques were utilized to interrogate the extracranial carotid and vertebral arteries bilaterally. The degree of stenosis is based off criteria similar to NASCET. FINDINGS: 1. On the right: Plaque is present at the carotid bifurcation but velocity measurements are normal and do not suggest a stenosis of greater than 50% diameter reduction in the right ICA. The right external carotid artery shows no significant stenosis. The vertebral artery is patent demonstrating antegrade flow. The right ECA demonstrates a mild stenosis with peak systolic velocity of under 200 cm/s. 2. On the left: Plaque is present at the carotid bifurcation but velocity measurements are normal and do not suggest a stenosis of greater than 50% diameter reduction in the left ICA. The left ECA demonstrates a moderate stenosis with peak systolic velocity of 239 cm/s. The vertebral artery is patent demonstrating antegrade flow. IMPRESSION: Plaque is present in the internal carotid arteries but velocity measurements are normal and there is no evidence to suggest a hemodynamically significant stenosis of greater than 50% diameter reduction.
[2017-09-24 22:10] VITALS: BP 142/82
[2017-09-25] VITALS (8 sets, daily range): BP systolic 140–210; BP diastolic 76–110
--- NOTE | 2017-09-25 07:30 | PN- Housestaff ---
Richard BENITEZ,Benedicto 09/25/17 0730: Subjective Follow-up For: Syncope Complaints: no complaints Tele-Events Since Last Visit: NSR, no pauses, no arrhythmia noted Subjective: I followed up on the patient today. She does not offer any complaints, no dizziness, weakness, palpitation, chest pain, pressure overnight or now. her BP has been running high slowly as she was not on her BP meds yesterday. This AM, her BP med was restarted initially with Metoprolol XL only but later was found to be in HTN urgency (SBP>200), without any symptoms. Amlodipine 5 mg PO was also given after finding her BP still high. EKG shows non-specific T wave changes, but no ST changes or features of new ischemia otherwise. LVH features noted. CXR pending. Review of Systems Constitutional: Reports: see HPI. Objective Last 24 Hrs of Vital Signs/I&O Vital Signs Date Time Temp Pulse Resp B/P B/P Pulse O2 O2 Flow FiO2 Mean Ox Delivery Rate 09/25 0854 100 208/100 09/25 0650 99.1 96 20 158/100 97 / 0000 Room Air Room Air 09/24 2210 99.4 95 18 142/82 95 Room Air 09/24 1411 99.1 99 18 156/90 98 Room Air 09/24 0949 Room Air Room Air Intake & Output 09/25 1600 09/25 0800 09/25 0000 Intake Total 100 100 Output Total Balance 100 100 Intake, Oral 100 100 Patient 75.296 kg Weight Weight Bed scale Measurement Method Physical Exam General Appearance: Alert, Oriented X3, Cooperative, No Acute Distress, obese Other Physical Findings: Skin Temp/Moisture Exam: Warm/Dry Sepsis Skin Exam (color): Normal for Ethnicity HEENT: Atraumatic, PERRLA, EOMI, Mucous Membr. moist/pink Cardiovascular: Regular Rate, Normal S1, Normal S2, No Murmurs Lungs: Clear to Auscultation, Normal Air Movement Abdomen: Normal Bowel Sounds, Soft, No Tenderness Neurological: grossly intact Current Medications: Current Medications Sig/Liliya Start time Last Medication Dose Route Stop Time Status Admin Acetaminophen 650 MG Q6P PRN 09/23 2230 AC PO Acetaminophen 1,000 MG Q6P PRN 09/23 2230 AC IV Albuterol Sulfate 2 PUF Q4-6 PRN PRN 09/23 2245 AC INH Amlodipine Besylate 5 MG DAILY 09/25 0909 AC PO Buspirone HCl 30 MG QPM 09/24 2100 AC 09/24 PO 2054 Buspirone HCl 15 MG QAM 09/24 0900 AC 09/25 PO 0851 Carbidopa/Levodopa 1 TAB TID 09/23 2300 AC 09/25 PO 0851 Guaifenesin 600 MG Q12 09/24 2100 AC 09/25 PO 0851 Heparin Sodium 5,000 UNIT Q8 09/23 2300 AC 09/24 (Porcine) SC 1605 Insulin Aspart 0 AT BEDTIME 09/24 2100 AC SC Insulin Aspart 0 TIDAC 09/24 0800 AC 09/24 SC 1220 Metoprolol Succinate 50 MG DAILY 09/25 0900 AC 09/25 PO 0854 Nystatin 1 JOSEPHINE TID 09/24 0417 AC 09/25 TOP 0855 Pravastatin Sodium 40 MG 1700 / 1700 AC 09/24 PO 1605 Ropinirole HCl 1 MG BID 09/23 2330 AC 09/25 PO 0851 Tiotropium [place] 1 PUF DAILY 09/24 0900 AC 09/25 INH 0855 Venlafaxine HCl 75 MG DAILY 09/24 0900 AC 09/25 PO 0851 Last 24 Hrs of Lab/Elias Results Last 24 Hrs of Labs/Mics: Laboratory Tests 09/25/17 0650: Anion Gap 12, Estimated GFR 31 L, BUN/Creatinine Ratio 13.1, CBC w Diff NO MAN DIFF REQ, RBC 4.13 L, MCV 86.8, MCH 28.9, MCHC 33.3, RDW 14.0, MPV 6.2 L, Gran % 83.3 H, Lymphocytes % 9.4 L, Monocytes % 5.5, Eosinophils % 1.5, Basophils % 0.3, Absolute Granulocytes 7.8 H, Absolute Lymphocytes 0.9 L, Absolute Monocytes 0.5, Absolute Eosinophils 0.1, Absolute Basophils 0 Assessment/Plan Assessment: 77-year-old female with past medical history of COPD not on oxygen, mild cardiomyopathy, venous insufficiency, right bundle branch block, ex-smoker (quit 8yrs) non-small cell lung cancer status post chemotherapy/radiation 8 yrs ago, nonobstructive carotid stenosis, hypertension, hyperlipidemia, was brought in to the emergency after her recent discharge from the same day, after working up for syncopal episodes. Of note, during her recent hospital admission, she did not have any presyncope or syncopal episodes. Her cardiac examination, and telemetry was uneventful, and she did not have any focal neurologic deficits either. Patient is currently admitted in the telemetry be floor for the management of following issues: #Syncope No arrhythmia noted, no focal neurological deficit noted, patient is hydrating well, achy eyes slowly resolving, carotid ultrasound does not show any significant narrowing, although vertebral artery was not scanned as requested. This morning, her blood pressure was high thus orthostatics were not done. Will repeat again. -If orthostat positive, will consider Florinef. Seeking Cardiology recs. #HTN Initially yesterday her blood pressure medications were on hold, but for high blood pressure this morning they were resumed. We'll keep monitoring for further adjustment. 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 We'll continue to monitor. #Diet: CC3 diet #DVT ppx: SQ Heparin #Code status: Full code Problem List: 1. Syncope 2. Acute kidney injury 3. CKD (chronic kidney disease) stage 3, GFR 30-59 ml/min 4. Hypertension Pain Ratin Pain Location: - Pain Goal: Pain 4 or less Pain Plan: prn Tomorrow's Labs & Rationales: JAZMIN TaLuisadi 09/25/17 1048: Attending MD Review Statement Attending Statement Attending MD Statement: examined this patient, discuss w/resident/PA/WINCHMAN/CRANE OPERATOR, agreed w/resident/PA/WINCHMAN/CRANE OPERATOR, discussed with family, reviewed EMR data (avail), discussed with nursing, discussed with case mgmt, reviewed images, amended to note Attending Assessment/Plan: Patient seen/examined bedside. Patient here in telemetry for recurrent syncope and renal insufficiency. Patient has elevated bp this am. She has history of non small cell lung cancer with chest xray findings unchanged from prior without fever or leukocytosis. Patient is on maintanance therapy for parkinson disease. Cardiology appreciated, continue orhtostasis every shift and carotid USG negative for stenosis. Recent ECHO with no obvius wall motion deformity and V/Q scan neagtive for PE. Patient might benefit from event monitor/loop recorder as outpatient. Hypertension uncontrolled: given amlodipine 5 mg, continue rest bp meds. recheck bp. Consider orthostatic hypotension: trial of florinef if ok with cardiology.
[2017-09-25 08:05] LABS: ABSOLUTE BASOPHIL COUNT 0 /CUMM (0.0-0.2); ABSOLUTE EOSINOPHIL COUNT 0.1 /CUMM (0.0-0.7); ABSOLUTE GRANULOCYTE CT 7.8 /CUMM (1.4-6.5); ABSOLUTE LYMPH COUNT 0.9 /CUMM (1.2-3.4); ABSOLUTE MONOCYTE COUNT 0.5 /CUMM (0.10-0.60); BASOPHIL % 0.3 % (0.0-2.0); EOSINOPHIL % 1.5 % (0-5); HEMATOCRIT 35.8 % (37-47); MEAN CORPUSCULAR HGB 28.9 PG (27.0-31.0); MEAN CORPUSCULAR HGB CONC 33.3 G/DL (33.0-37.0); MEAN CORPUSCULAR VOLUME 86.8 FL (81.0-99.0); MEAN PLATELET VOLUME 6.2 FL (7.4-10.4); PLATELET COUNT 259 /CUMM (130-400); RED BLOOD CELL CT 4.13 /CUMM (4.20-5.40); WHITE BLOOD CELL COUNT 9.4 /CUMM (4.8-10.8)
[2017-09-25 09:30] LABS: GRANULOCYTE % 83.3 % (42.2-75.2)
--- NOTE | 2017-09-25 10:15 | RADIOLOGY REPORT ---
EXAMINATION: XR PORTABLE CHEST CLINICAL INFORMATION: Hypertension urgency. Evaluate for pulmonary edema. Patient reports shortness of breath. COMPARISON: Chest 09/23/2017. TECHNIQUE: Portable AP 80 degrees upright view of the chest was obtained. FINDINGS: There is no significant change in opacification of the right mid to lower hemithorax consistent with a combination of atelectatic/consolidative lung and right pleural effusion. Volume loss in the right hemithorax is again noted. Aerated right apex and clear left lung are again noted. IMPRESSION: No significant change in significant atelectasis/consolidation and pleural effusion in the right hemithorax. Clear left lung.
--- NOTE | 2017-09-25 10:40 | PN- Cardiology ---
Subjective Subjective: Feels fine this morning despite the elevated blood pressure. Objective Vital Signs and I&Os Vital Signs Date Time Temp Pulse Resp B/P B/P Pulse O2 O2 Flow FiO2 Mean Ox Delivery Rate 09/25 0944 90 210/100 09/25 0854 100 208/100 05/ 0650 99.1 96 20 158/100 97 05 0000 Room Air Room Air 09/24 2210 99.4 95 18 142/82 95 Room Air 09/24 1411 99.1 99 18 156/90 98 Room Air Intake & Output 09/25 1600 09/25 0800 / 0000 09/24 1600 09/24 0800 09/24 0000 Intake Total 100 100 600 400 Output Total 200 Balance 100 100 600 400 -200 Intake, IV 600 400 Intake, Oral 100 100 Output, Urine 200 Patient 166 lb 165 lb Weight Weight Bed scale Bed scale Measurement Method Physical Exam: General: no apparent distress. Alert. Eyes: No obvious scleral icterus. HEENT: No jugular venous distention or abnormal jugular venous pulsations. Cardiovascular: Normal intensity S1/S2. Regular Respiratory: Decreased air entry on the right Abdomen: Soft, nontender with no guarding or rebound tenderness. Musculoskeletal: No clubbing or cyanosis noted Skin: warm Neurologic: No gross focal deficits noted. Lymph: No gross lymphadenopathy. Current Medications: Current Medications Sig/Liliya Start time Last Medication Dose Route Stop Time Status Admin Acetaminophen 650 MG Q6P PRN 09/23 2230 AC PO Acetaminophen 1,000 MG Q6P PRN 09/23 2230 AC IV Albuterol Sulfate 2 PUF Q4-6 PRN PRN 09/23 2245 AC INH Amlodipine Besylate 5 MG DAILY 09/25 09 AC 09/25 PO 0944 Buspirone HCl 30 MG QPM 09/24 2100 AC 09/24 PO 205 Buspirone HCl 15 MG QAM 09/24 0900 AC 09/25 PO 0851 Carbidopa/Levodopa 1 TAB TID 09/23 2300 AC 09/25 PO 0851 Guaifenesin 600 MG Q12 09/24 2100 AC 09/25 PO 0851 Heparin Sodium 5,000 UNIT Q8 09/23 2300 AC 09/24 (Porcine) SC 1605 Insulin Aspart 0 AT BEDTIME 09/24 2100 AC SC Insulin Aspart 0 TIDAC 09/24 0800 AC 09/24 SC 1220 Metoprolol Succinate 50 MG DAILY 09/25 09 AC 09/25 PO 0854 Nystatin 1 JOSEPHINE TID 09/24 0417 09/25 TOP 0855 Pravastatin Sodium 40 MG 1700 09/24 1700 AC 09/24 PO 1605 Ropinirole HCl 1 MG BID 09/23 2330 AC 09/25 PO 0851 Tiotropium [place] 1 PUF DAILY 09/24 09 AC 09/25 INH 0855 Venlafaxine HCl 75 MG DAILY 09/24 09 AC 09/25 PO 0851 Results Last 48 Hrs of Labs/Mics: Laboratory Tests 09/25/17 0650: Anion Gap 12, Estimated GFR 31 L, BUN/Creatinine Ratio 13.1, CBC w Diff NO MAN DIFF REQ, RBC 4.13 L, MCV 86.8, MCH 28.9, MCHC 33.3, RDW 14.0, MPV 6.2 L, Gran % 83.3 H, Lymphocytes % 9.4 L, Monocytes % 5.5, Eosinophils % 1.5, Basophils % 0.3, Absolute Granulocytes 7.8 H, Absolute Lymphocytes 0.9 L, Absolute Monocytes 0.5, Absolute Eosinophils 0.1, Absolute Basophils 0 09/24/17 0630: Anion Gap 11, Estimated GFR 27 L, BUN/Creatinine Ratio 16.7, Troponin I 0.06, CBC w Diff NO MAN DIFF REQ, RBC 3.83 L, MCV 86.3, MCH 28.9, MCHC 33.5, RDW 14.1 , MPV 6.6 L, Gran % 79.9 H, Lymphocytes % 11.6 L, Monocytes % 6.6, Eosinophils % 1.6, Basophils % 0.3, Absolute Granulocytes 7.2 H, Absolute Lymphocytes 1.0 L, Absolute Monocytes 0.6, Absolute Eosinophils 0.1, Absolute Basophils 0 09/23/17 1810: Urinalysis MOD H, Urine Color YEL, Urine Clarity CLEAR, Urine pH 6.5, Ur Specific [place] >= 1.030, Urine Protein >=300 H, Urine Ketones NEG, Urine Nitrite NEG, Urine Bilirubin NEG, Urine Urobilinogen 0.2, Ur Leukocyte Esterase NEG, Ur Microscopic SEDIMENT EXAMINED, Urine RBC 1-3, Urine WBC 1-3 H, Ur Epithelial Cells FEW, Urine Bacteria FEW H, Hyaline Casts 1-3 H, Urine Mucus FEW, Urine Hemoglobin TRACE-INTACT, Urine Glucose NEG 09/23/17 1422: Anion Gap 12, Estimated GFR 29 L, BUN/Creatinine Ratio 17.1, Glucose 121 H, Calcium 9.6, Total Bilirubin 0.6, AST 20, ALT 27, Alkaline Phosphatase 69, Troponin I 0.05, Total Protein 6.9, Albumin 4.0, Globulin 2.9, Albumin/Globulin Ratio 1.4, TSH &T3 &Free T4 Intrp 2.810, CBC w Diff MAN DIFF ORDERED, RBC 4.39, MCV 85.4, MCH 29.4, MCHC 34.4, RDW 13.6, MPV 6.3 L, Gran % 89.5 H, Lymphocytes % 5.6 L, Monocytes % 4.4, Eosinophils % 0.5, Basophils % 0, Absolute Granulocytes 15.4 H, Segmented Neutrophils 88 H, Band Neutrophils 3, Absolute Lymphocytes 1.0 L, Lymphocytes 7 L, Monocytes 1 L, Absolute Monocytes 0.8 H, Eosinophils 1, Absolute Eosinophils 0.1, Absolute Basophils 0, Platelet Estimate ADEQUATE, Normocytic RBCs VERIFIED, Normochromic RBCs VERIFIED, Basophilic Stippling RARE Recent Imaging Studies: Telemetry tracings are personally reviewed and shows sinus rhythm Carotid ultrasound showed no evidence of stenosis greater than 50% Assessment/Plan Assessment/Plan 1. Renal insufficiency, chronic 2. Syncope; recurrent 3. History of nonobstructive carotid disease 4. Known right bundle branch block 5. COPD 6. History of non-small cell lung cancer 7. History of hypertension/hyperlipidemia 8. History of mild cardiomyopathy in the past with possible infarct versus artifact on nuclear stress test 9. Parkinson's disease Patient offers no complaints. Resting blood pressure is elevated and she received her first dose of amlodipine this morning. No events noted on telemetry. Carotid ultrasound shows no evidence of severe obstruction. Neurology consult reviewed and EEG can be considered for possibility of epileptic drop attacks. She was not orthostatic on the documented vitals yesterday evening. She remains euvolemic on exam. She may be a candidate for event monitor or implantable loop recorder as an outpatient. Twan Whitfield MD [facility] Continue telemetry? No
[2017-09-26 06:56] VITALS: BP 166/98
--- NOTE | 2017-09-26 09:33 | PN- Housestaff ---
Richard BENITEZ,Benedicto 09/26/17 0930: Subjective Follow-up For: syncope Complaints: no complaints Subjective: I followed up the pt today. She offers no complaints. She appears calm but has high BP. (Not notified to me). We got orthothostatic BP and HR yesterday, positive. She did NOT feel dizzy or palpitations during the episode of orthostatic hypotension. Patient has been taught about getting up slowly and moving her feet before standing from seated position or before sitting up from lying position. Review of Systems Constitutional: Reports: no symptoms. Objective Last 24 Hrs of Vital Signs/I&O Vital Signs Date Time Temp Pulse Resp B/P B/P Pulse O2 O2 Flow FiO2 Mean Ox Delivery Rate 09/26 0845 200/98 09/26 0845 89 200/98 09/26 0656 98.0 89 20 166/98 97 Room Air 09/26 0000 Room Air 09/25 2201 98.8 85 20 170/92 96 Room Air 09/25 2000 86 182/76 09/25 1600 Room Air 09/25 1449 99.1 88 20 172/90 96 Room Air 09/25 1256 94 140/78 09/25 1100 70 190/90 09/25 0944 90 210/100 Intake & Output 09/26 1600 09/26 0800 09/26 0000 Intake Total 0 260 Output Total Balance 0 260 Intake, IV 0 10 Intake, Oral 250 Number 0 0 Bowel Movements Patient 74.984 kg Weight Weight Bed scale Measurement Method Physical Exam General Appearance: Alert, Oriented X3, Cooperative, No Acute Distress, obese Other Physical Findings: Skin Temp/Moisture Exam: Warm/Dry Sepsis Skin Exam (color): Normal for Ethnicity HEENT: Atraumatic, PERRLA, EOMI, Mucous Membr. moist/pink Cardiovascular: Regular Rate, Normal S1, Normal S2, No Murmurs Lungs: Clear to Auscultation, Normal Air Movement Abdomen: Normal Bowel Sounds, Soft, No Tenderness Neurological: grossly intact Assessment/Plan Assessment: 77-year-old female with past medical history of COPD not on oxygen, mild cardiomyopathy, venous insufficiency, right bundle branch block, ex-smoker (quit 8yrs) non-small cell lung cancer status post chemotherapy/radiation 8 yrs ago, nonobstructive carotid stenosis, hypertension, hyperlipidemia, was brought in to the emergency after her recent discharge from the same day, after working up for syncopal episodes. Of note, during her recent hospital admission, she did not have any presyncope or syncopal episodes. Her cardiac examination, and telemetry was uneventful, and she did not have any focal neurologic deficits either. Patient is currently admitted in the telemetry be floor for the management of following issues: #Syncope/Orthostatic hypotension/HTN No arrhythmia noted, no focal neurological deficit noted, patient is hydrating well, carotid ultrasound does not show any significant narrowing, although vertebral artery was not scanned as requested. Her orthostat was positive. She remains hypertensive. Needs further BP meds adjustments. Patient has been taught about few measures to avoid orthostatic hypotension will continue to watch her blood pressure closely. -We're getting a Doppler ultrasound to rule out renal artery stenosis given her persistent hypertension. -For high BP: We have increased her Amlodipine to 10 mg starting today. -If persistenst HTN, and if NO Renal artery stenosis, would restart ARB which has been on hold if okay with nephrology -If orthostat positive, will consider Florinef. Would not start it if she is still having high BP. Appreciate Cardiology recs. -Will keep a close watch on her BP measurements. #CKD Stag3b, on presentation GFR 29 (consistent with stage 4), improved to 3b Patient's GFR is 31, BUN 21/1.6, slowly improving 19/1.4 today. We'll continue to monitor. #Diet: CC3 diet #DVT ppx: SQ Heparin #Code status: Full code Problem List: 1. Syncope 2. Orthostatic hypotension 3. CKD (chronic kidney disease) stage 3, GFR 30-59 ml/min Pain Ratin Pain Location: - Pain Goal: Pain 4 or less Pain Plan: prn Tomorrow's Labs & Rationales: CBC, BEP Андрей Ta 09/26/17 1043: Attending MD Review Statement Attending Statement Attending MD Statement: examined this patient, discuss w/resident/PA/PLANTING MATERIAL CARRIER, agreed w/resident/PA/PLANTING MATERIAL CARRIER, discussed with family, reviewed EMR data (avail), discussed with nursing, discussed with case mgmt, reviewed images, amended to note Attending Assessment/Plan: Patient seen/examined bedside. Patient here in telemetry for recurrent syncope and renal insufficiency. She has history of non small cell lung cancer with chest xray findings unchanged from prior without fever or leukocytosis. Patient is on maintanance therapy for parkinson disease. Patient denies any new complaints, no chest pain, her bp systolic 200s Cardiology appreciated, continue orhtostasis every shift and carotid USG negative for stenosis. Recent ECHO with no obvius wall motion deformity and V/Q scan neagtive for PE. Patient might benefit from event monitor/loop recorder as outpatient. Hypertension uncontrolled: increase amlodipine 10 mg, continue rest bp meds. Obtain Renal arterial doppler. If negative can resume losartan if ok with nephrology. Consider orthostatic hypotension: trial of florinef in future if ok with cardiology.
[2017-09-26 10:30] VITALS: BP 160/86
--- NOTE | 2017-09-26 11:19 | PN- Cardiology ---
Subjective Subjective: Feels well but still very hypertensive. Objective Vital Signs and I&Os Vital Signs Date Time Temp Pulse Resp B/P B/P Pulse O2 O2 Flow FiO2 Mean Ox Delivery Rate 09/26 1030 95 160/86 09/26 0845 200/98 09/26 0845 89 200/98 09/26 0656 98.0 89 20 166/98 97 Room Air 09/26 0000 Room Air 09/25 2201 98.8 85 20 170/92 96 Room Air 09/25 2000 86 182/76 09/25 1600 Room Air 09/25 1449 99.1 88 20 172/90 96 Room Air 09/25 1256 94 140/78 Intake & Output 09/26 1600 09/26 0800 09/26 0000 09/25 1600 09/25 0800 09/25 0000 Intake Total 0 260 480 100 100 Output Total 500 Balance 0 260 -20 100 100 Intake, IV 0 10 Intake, Oral 250 480 100 100 Number 0 0 Bowel Movements Output, Urine 500 Patient 165 lb 166 lb Weight Weight Bed scale Bed scale Measurement Method Physical Exam: General: no apparent distress. Alert. Eyes: No obvious scleral icterus. HEENT: No jugular venous distention or abnormal jugular venous pulsations. Cardiovascular: Normal intensity S1/S2. Regular Respiratory: Decreased air entry on the right Abdomen: Soft, nontender with no guarding or rebound tenderness. Musculoskeletal: No clubbing or cyanosis noted Skin: warm Neurologic: No gross focal deficits noted. Lymph: No gross lymphadenopathy. Current Medications: Current Medications Sig/Liliya Start time Last Medication Dose Route Stop Time Status Admin Acetaminophen 650 MG Q6P PRN 09/23 2230 AC PO Acetaminophen 1,000 MG Q6P PRN 09/23 2230 AC IV Albuterol Sulfate 2 PUF Q4-6 PRN PRN 09/23 2245 AC INH Amlodipine Besylate 5 MG DAILY 09/25 0909 AC 09/26 PO 0845 Buspirone HCl 30 MG QPM 09/24 2099 AC 09/25 PO 2056 Buspirone HCl 15 MG QAM 09/24 0900 AC 09/26 PO 0845 Carbidopa/Levodopa 1 TAB TID 09/23 2300 AC 09/26 PO 0845 Guaifenesin 600 MG Q12 09/24 2099 AC 09/26 PO 0844 Heparin Sodium 5,000 UNIT Q8 09/23 230 AC 09/26 (Porcine) SC 0614 Insulin Aspart 0 AT BEDTIME 09/24 2100 AC SC Insulin Aspart 0 TIDAC 09/24 0800 AC 09/24 SC 1220 Metoprolol Succinate 50 MG DAILY 09/25 0900 AC 09/26 PO 0845 Nystatin 1 JOSEPHINE TID 09/24 0417 AC 09/26 TOP 0846 Patient Medication 1 ED ONE ONE 09/25 1200 DC Teaching ED 09/25 1201 Pravastatin Sodium 40 MG 1700 09/24 1700 AC 09/25 PO 1622 Ropinirole HCl 1 MG BID 09/23 2330 AC 09/26 PO 0845 Tiotropium [place] 1 PUF DAILY 09/24 0900 AC 09/26 INH 0844 Venlafaxine HCl 75 MG DAILY 09/24 0900 AC 09/26 PO 0844 Results Last 48 Hrs of Labs/Mics: Laboratory Tests 09/25/17 0650: Anion Gap 12, Estimated GFR 31 L, BUN/Creatinine Ratio 13.1, CBC w Diff NO MAN DIFF REQ, RBC 4.13 L, MCV 86.8, MCH 28.9, MCHC 33.3, RDW 14.0, MPV 6.2 L, Gran % 83.3 H, Lymphocytes % 9.4 L, Monocytes % 5.5, Eosinophils % 1.5, Basophils % 0.3, Absolute Granulocytes 7.8 H, Absolute Lymphocytes 0.9 L, Absolute Monocytes 0.5, Absolute Eosinophils 0.1, Absolute Basophils 0 Recent Imaging Studies: Telemetry tracings were personally reviewed and shows sinus rhythm Assessment/Plan Assessment/Plan 1. Renal insufficiency, chronic 2. Syncope; recurrent 3. History of nonobstructive carotid disease 4. Known right bundle branch block 5. COPD 6. History of non-small cell lung cancer 7. History of hypertension/hyperlipidemia 8. History of mild cardiomyopathy in the past with possible infarct versus artifact on nuclear stress test 9. Parkinson's disease Doing well but still very hypertensive. Discussed with the medical team. Recommend increasing the amlodipine to 10 mg p.o. daily. Would get a renal artery ultrasound to exclude renal artery stenosis. No events noted on telemetry. Carotid ultrasound shows no evidence of severe obstruction. Neurology consult reviewed and EEG can be considered for possibility of epileptic drop attacks. She may be a candidate for event monitor or implantable loop recorder as an outpatient. Twan Whitfield MD [facility] Continue telemetry? Yes
[2017-09-26 14:51] VITALS: BP 172/84
--- NOTE | 2017-09-26 14:58 | Patient Discharge Instructions ---
Discharge Instructions General Discharge Information You were seen/treated for: Presyncope, orthostatic hypotension Special Instructions: Please take her medications as prescribed. Please to not stand up abruptly from laying position. Use the feet exercise shown to you before you stands up from sitting position. Please continue to use the ERIC stockings (compression stockings) as instructed. Please keep drinking/eating well. Please return to emergency department if symptoms worsen. Diet Continue normal diet: No Recommended Diet: Diabetic Activity Full Activity/No Limits: No Activity Self Limited: Yes Acute Coronary Syndrome Inclusion Criteria At DC or during hospital stay patient has or had the following: ACS DIAGNOSIS No Discharge Core Measures Meds if any: Prescribed or Continued at Discharge Meds if any: NOT Prescribed or Continued at Discharge Congestive Heart Failure Inclusion Criteria At DC or during hospital stay patient has or had the following: CHF DIAGNOSIS No Discharge Core Measures Meds if any: Prescribed or Continued at Discharge Meds if any: NOT Prescribed or Continued at Discharge Cerebrovascular accident Inclusion Criteria At DC or during hospital stay patient has or had the following: CVA/TIA Diagnosis No Discharge Core Measures Meds if any: Prescribed or Continued at Discharge Meds if any: NOT Prescribed or Continued at Discharge Venous thromboembolism Inclusion Criteria VTE Diagnosis No VTE Type NONE VTE Confirmed by (Test) NONE Discharge Core Measures - Per Current guidelines, there needs to be overlap - treatment for the first 5 days of Warfarin therapy. - If discharged on Warfarin prior to 5 days of - overlap therapy, the patient will need to be - assessed for post discharge needs including - *Post discharge parental anticoagulation - *Warfarin and/or parental anticoagulation education - *Follow up date to check INR post discharge At least 5 days overlap therapy as Inpatient No Meds if any: Prescribed or Continued at Discharge Note: Overlap Therapy is Warfarin and Anticoagulant Meds if any: NOT Prescribed or Continued at Discharge
[2017-09-26 22:21] VITALS: BP 178/92
[2017-09-27 06:27] VITALS: BP 164/80
[2017-09-27 08:23] LABS: ABSOLUTE BASOPHIL COUNT 0 /CUMM (0.0-0.2); ABSOLUTE EOSINOPHIL COUNT 0.1 /CUMM (0.0-0.7); ABSOLUTE LYMPH COUNT 1.1 /CUMM (1.2-3.4); BASOPHIL % 0.1 % (0.0-2.0)
[2017-09-27 08:59] LABS: ABSOLUTE GRANULOCYTE CT 11.5 /CUMM (1.4-6.5); ABSOLUTE MONOCYTE COUNT 0.7 /CUMM (0.10-0.60); EOSINOPHIL % 0.7 % (0-5); MEAN CORPUSCULAR HGB 28.8 PG (27.0-31.0); MEAN CORPUSCULAR HGB CONC 33.4 G/DL (33.0-37.0); MEAN CORPUSCULAR VOLUME 86.3 FL (81.0-99.0); MEAN PLATELET VOLUME 6.2 FL (7.4-10.4); PLATELET COUNT 300 /CUMM (130-400); RBC DISTRIBUTION WIDTH 13.4 % (11.5-14.5); RED BLOOD CELL CT 4.85 /CUMM (4.20-5.40); WHITE BLOOD CELL COUNT 13.4 /CUMM (4.8-10.8)
--- NOTE | 2017-09-27 09:06 | PN- Housestaff ---
Marlon Zafar 09/27/17 0906: Subjective Follow-up For: syncope Tele-Events Since Last Visit: Sinus rhythm/sinus tachycardia Subjective: The patient was seen and examined. She reports that she did not sleep well overnight. Denies any headache, dizziness, lightheadedness, chest pain, shortness of breath, nausea, vomiting, abdominal pain. Systolic blood pressure ranging 167 150s. Renal ultrasound result limited evaluation, they recommended CTA versus MRA. Left renal atrophy was noted. Review of Systems Constitutional: Reports: no symptoms. Objective Last 24 Hrs of Vital Signs/I&O Vital Signs Date Time Temp Pulse Resp B/P B/P Pulse O2 O2 Flow FiO2 Mean Ox Delivery Rate 09/27 1412 97.2 95 18 154/90 97 Room Air 09/27 0916 99 164/80 09/27 0916 99 164/80 09/27 0627 97.8 99 18 164/80 97 Room Air 09/26 2221 98.3 85 16 178/92 96 Room Air Intake & Output 09/27 1600 09/27 0800 09/27 0000 Intake Total 550 0 120 Output Total Balance 550 0 120 Intake, Oral 550 0 120 Patient 165 lb Weight Physical Exam General Appearance: Alert, Cooperative, No Acute Distress Other Physical Findings: Skin Temp/Moisture Exam: Warm/Dry Sepsis Skin Exam (color): Normal for Ethnicity HEENT: Atraumatic, PERRLA, EOMI, Mucous Membr. moist/pink Cardiovascular: Regular Rate, Normal S1, Normal S2, No Murmurs Lungs: Clear to Auscultation, Normal Air Movement Abdomen: Normal Bowel Sounds, Soft, No Tenderness Neurological: grossly intact Current Medications: Current Medications Sig/Liliya Start time Last Medication Dose Route Stop Time Status Admin Acetaminophen 650 MG Q6P PRN 09/23 2230 AC PO Acetaminophen 1,000 MG Q6P PRN 09/23 2230 AC IV Albuterol Sulfate 2 PUF Q4-6 PRN PRN 09/23 2245 AC INH Amlodipine Besylate 10 MG DAILY 09/27 09 AC 09/27 PO 0916 Buspirone HCl 30 MG QPM 09/24 2100 AC 09/26 PO 2114 Buspirone HCl 15 MG QAM 09/24 0900 AC 09/27 PO 0915 Carbidopa/Levodopa 1 TAB TID 09/23 2300 AC 09/27 PO 1555 Guaifenesin 600 MG Q12 09/24 2100 AC 09/27 PO 0916 Heparin Sodium 5,000 UNIT Q8 09/23 2300 AC 09/27 (Porcine) SC 1555 Insulin Aspart 0 AT BEDTIME 09/24 2100 AC SC Insulin Aspart 0 TIDAC 09/24 0800 AC 09/24 SC 1220 Metoprolol Succinate 50 MG DAILY 09/25 0900 AC 09/27 PO 0916 Nystatin 1 JOSEPHINE TID 09/24 0417 AC 09/27 TOP 1555 Potassium Chloride 40 MEQ ONCE ONE 09/27 0945 DC 09/27 PO 09/27 0946 1032 Pravastatin Sodium 40 MG 1700 09/24 1700 AC 09/27 PO 1657 Ropinirole HCl 1 MG BID 09/23 2330 AC 09/27 PO 0916 Tiotropium [place] 1 PUF DAILY 09/24 0900 AC 09/27 INH 0917 Venlafaxine HCl 75 MG DAILY 09/24 0900 AC 09/27 PO 0916 Last 24 Hrs of Lab/Elias Results Last 24 Hrs of Labs/Mics: Laboratory Tests 09/27/17 0645: Anion Gap 16, Estimated GFR 40 L, BUN/Creatinine Ratio 12.3, CBC w Diff NO MAN DIFF REQ, RBC 4.85, MCV 86.3, MCH 28.8, MCHC 33.4, RDW 13.4, MPV 6.2 L, Gran % 85.7 H, Lymphocytes % 7.9 L, Monocytes % 5.6, Eosinophils % 0.7, Basophils % 0.1, Absolute Granulocytes 11.5 H, Absolute Lymphocytes 1.1 L, Absolute Monocytes 0.7 H, Absolute Eosinophils 0.1, Absolute Basophils 0 Assessment/Plan Assessment: This is a 77-year-old female with past medical history significant for COPD not on oxygen, mild cardiomyopathy, venous insufficiency, right bundle branch block, ex-smoker (quit 8yrs) non-small cell lung cancer status post chemotherapy/ radiation 8 yrs ago, nonobstructive carotid stenosis, hypertension, hyperlipidemia, was brought in to the emergency for syncopal episodes. Problem list/plan: #Syncope/Orthostatic hypotension/HTN -Renal Doppler ultrasound: 1. Markedly limited evaluation. The results should be interpreted with caution. No evidence of right renal artery stenosis, although on the prior CT of the abdomen, dense ostial calcified plaque is seen on the right much greater than left. The left renal artery was unable to be seen due to the patient's body habitus. Recommend follow-up with CTA or MRA of the abdomen for further evaluation. 2. Left renal atrophy. -Nephrology consult placed; would consult if MRA vs CTA is needed and if okay to restart ARB. -Elevated blood pressure: Continue with Amlodipine to 10 mg. -Cardiology recommendation appreciated, given the renal artery Doppler was not conclusive,prior CTof the abdomen was significant for dense ostial calcified plaque is seen on the right, left renal artery was not able to be visualized due to patient's body habitus and also given left renal atrophy was noted, would hold off on starting ARB until cleared by follow-up imaging and nephrology evaluation. -If orthostat positive, will consider Florinef. Would not start it if she is still having high BP. Appreciate Cardiology recs. 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 -Continue to monitor. #Diet: CC3 diet #DVT ppx: SQ Heparin #Code status: Full code Problem List: 1. CKD (chronic kidney disease) stage 3, GFR 30-59 ml/min Pain Ratin Pain Location: NA Pain Goal: Remain pain free Pain Plan: BEP to monitor electrolytes Tomorrow's Labs & Rationales: CBC to monitor H&H BEP to monitor electrolytes Андрей Ta 09/27/17 0934: Attending MD Review Statement Attending Statement Attending MD Statement: examined this patient, discuss w/resident/PA/GALVANIZER ZINC, agreed w/resident/PA/GALVANIZER ZINC, discussed with family, reviewed EMR data (avail), discussed with nursing, discussed with case mgmt, reviewed images, amended to note Attending Assessment/Plan: Patient bp improved. Follow up on renal arterial USG dopplers. See if ok to resume losartan if bp remains elevated. Patient creatinine has been improved since admission thought secondary to hypotensive episode few days ago. Monitor creatinine. Patient can be discharged to home with close outpatient follow up with cardiology.
[2017-09-27 09:49] LABS: HEMATOCRIT 41.9 % (37-47)
[2017-09-27 09:50] LABS: GRANULOCYTE % 85.7 % (42.2-75.2)
--- NOTE | 2017-09-27 11:13 | ULTRASOUND REPORT ---
EXAMINATION: ULTRASOUND RENAL WITH DOPPLER CLINICAL INFORMATION: Persistent hypertension COMPARISON: CT abdomen pelvis 09/18/2017 TECHNIQUE: Real-time grayscale, color Doppler, and duplex Doppler evaluation of the kidneys and renal vasculature was performed. FINDINGS: Markedly limited evaluation due to the patient's body habitus and bowel gas. RENAL MEASUREMENTS: Right: 11.3 x 4.1 x 5.3 cm (Sag x AP x TV) Left: 6.8 x 3.5 x 2.6 cm (Sag x AP x TV) Limited evaluation of the renal parenchyma is unremarkable. DOPPLER INTERROGATION: Aorta: 88 cm/sec Right Main Renal Artery: Proximal: 100 cm/sec Mid: 131 cm/sec Distal: 117 cm/sec Left Main Renal Artery: Unable to be visualized due to bowel gas. Renal-Aortic Ratio (RAR): Right: 1.9 Left: Unable to be calculated IMPRESSION: 1. Markedly limited evaluation. The results should be interpreted with caution. No evidence of right renal artery stenosis, although on the prior CT of the abdomen, dense ostial calcified plaque is seen on the right much greater than left. The left renal artery was unable to be seen due to the patient's body habitus. Recommend follow-up with CTA or MRA of the abdomen for further evaluation. 2. Left renal atrophy.
--- NOTE | 2017-09-27 11:24 | PN- Cardiology ---
Subjective Subjective: No acute events, no particular complaints. BP improved, although still elevated (165/85). Kidney function improving. Objective Vital Signs and I&Os Vital Signs Date Time Temp Pulse Resp B/P B/P Pulse O2 O2 Flow FiO2 Mean Ox Delivery Rate 09/27 0916 99 164/80 09/27 0916 99 164/80 09/27 0627 97.8 99 18 164/80 97 Room Air 09/26 2221 98.3 85 16 178/92 96 Room Air 09/26 1451 98.6 87 20 172/84 98 Room Air 09/26 1422 98.0 95 20 160/86 Intake & Output 09/27 1600 09/27 0800 09/27 0000 09/26 1600 09/26 0800 09/26 0000 Intake Total 0 120 480 0 260 Output Total Balance 0 120 480 0 260 Intake, IV 0 10 Intake, Oral 0 120 480 250 Number 0 0 Bowel Movements Patient 165 lb Weight Weight Bed scale Measurement Method Physical Exam: General: no apparent distress. Alert. HEENT: No jugular venous distention, mucosa are pink and moist Cardiovascular: Normal intensity S1/S2. Regular Respiratory: lungs are clear, good air entry bilaterally Abdomen: Soft, nontender with no guarding or rebound tenderness. extremity: good capillary refill, no edema Current Medications: Current Medications Sig/Liliya Start time Last Medication Dose Route Stop Time Status Admin Acetaminophen 650 MG Q6P PRN 09/23 2230 AC PO Acetaminophen 1,000 MG Q6P PRN 09/23 2230 AC IV Albuterol Sulfate 2 PUF Q4-6 PRN PRN 09/23 2245 AC INH Amlodipine Besylate 10 MG DAILY 09/27 09 AC 09/27 PO 0916 Amlodipine Besylate 5 MG ONCE ONE 09/26 1315 DC 09/26 PO 09/26 1316 1422 Amlodipine Besylate 5 MG DAILY 09/25 0909 DC 09/26 PO 0845 Buspirone HCl 30 MG QPM 09/24 2100 AC 09/26 PO 2114 Buspirone HCl 15 MG QAM 09/24 0900 AC 09/27 PO 0915 Carbidopa/Levodopa 1 TAB TID 09/23 2300 AC 09/27 PO 0916 Guaifenesin 600 MG Q12 09/24 2100 AC 09/27 PO 0916 Heparin Sodium 5,000 UNIT Q8 09/23 2300 AC 09/27 (Porcine) SC 0537 Insulin Aspart 0 AT BEDTIME 09/24 2100 AC SC Insulin Aspart 0 TIDAC 09/24 0800 AC 09/24 SC 1220 Metoprolol Succinate 50 MG DAILY 09/25 09 AC 09/27 PO 0916 Nystatin 1 JOSEPHINE TID 09/24 0417 09/27 TOP 0918 Patient Medication 1 ED ONE ONE 09/26 1730 DC Teaching ED 09/26 1731 Potassium Chloride 40 MEQ ONCE ONE 09/27 0945 DC 09/27 PO 09/27 0946 1032 Pravastatin Sodium 40 MG 1700 09/24 1700 AC 09/26 PO 1620 Ropinirole HCl 1 MG BID 09/23 2330 AC 09/27 PO 0916 Tiotropium [place] 1 PUF DAILY 09/24 09 AC 09/27 INH 0917 Venlafaxine HCl 75 MG DAILY 09/24 09 AC 09/27 PO 0916 Results Last 48 Hrs of Labs/Mics: Laboratory Tests 09/27/17 0645: Anion Gap 16, Estimated GFR 40 L, BUN/Creatinine Ratio 12.3, CBC w Diff NO MAN DIFF REQ, RBC 4.85, MCV 86.3, MCH 28.8, MCHC 33.4, RDW 13.4, MPV 6.2 L, Gran % 85.7 H, Lymphocytes % 7.9 L, Monocytes % 5.6, Eosinophils % 0.7, Basophils % 0.1, Absolute Granulocytes 11.5 H, Absolute Lymphocytes 1.1 L, Absolute Monocytes 0.7 H, Absolute Eosinophils 0.1, Absolute Basophils 0 09/26/17 1130: Anion Gap 12, Estimated GFR 37 L, BUN/Creatinine Ratio 13.6 Recent Imaging Studies: renal ultrasound: 1. Markedly limited evaluation. The results should be interpreted with caution. No evidence of right renal artery stenosis, although on the prior CT of the abdomen, dense ostial calcified plaque is seen on the right much greater than left. The left renal artery was unable to be seen due to the patient's body habitus. Recommend follow-up with CTA or MRA of the abdomen for further evaluation. 2. Left renal atrophy Assessment/Plan Assessment/Plan 1. Renal insufficiency, acute on chronic. 2. Syncope; recurrent 3. History of nonobstructive carotid disease 4. Known right bundle branch block 5. COPD 6. Parkinson's disease BP has improved but still elevated. Renal function has improved, losartan (25 mg) could be started to improve BP control, with follow up kidney function in a few days. No stenosis on renal ultrasoud but technically limited exam. No events noted on telemetry. Carotid ultrasound shows no evidence of severe obstruction. Neurology consult reviewed and EEG can be considered for possibility of epileptic drop attacks. She may be a candidate for event monitor or implantable loop recorder as an outpatient. Patient could be discharged from a cardiology standpoint with outpatient follow- up, will need creatinine/BMP in the coming week after initiation of losartan. Continue telemetry? No
[2017-09-27 14:12] VITALS: BP 154/90
[2017-09-27 20:00] VITALS: BP 168/80
[2017-09-27 23:14] VITALS: BP 152/100
[2017-09-28 06:57] VITALS: BP 130/80
[2017-09-28 08:53] LABS: ABSOLUTE BASOPHIL COUNT 0 /CUMM (0.0-0.2); ABSOLUTE EOSINOPHIL COUNT 0.1 /CUMM (0.0-0.7); ABSOLUTE GRANULOCYTE CT 10.7 /CUMM (1.4-6.5); ABSOLUTE MONOCYTE COUNT 0.8 /CUMM (0.10-0.60); BASOPHIL % 0.1 % (0.0-2.0); HEMATOCRIT 38.8 % (37-47); MEAN CORPUSCULAR HGB 28.9 PG (27.0-31.0); MEAN CORPUSCULAR HGB CONC 33.9 G/DL (33.0-37.0); MEAN CORPUSCULAR VOLUME 85.3 FL (81.0-99.0); MEAN PLATELET VOLUME 6.5 FL (7.4-10.4); PLATELET COUNT 254 /CUMM (130-400); RBC DISTRIBUTION WIDTH 13.6 % (11.5-14.5); RED BLOOD CELL CT 4.54 /CUMM (4.20-5.40); WHITE BLOOD CELL COUNT 12.7 /CUMM (4.8-10.8)
[2017-09-28 09:35] LABS: GRANULOCYTE % 84.7 % (42.2-75.2)
--- NOTE | 2017-09-28 10:55 | PN- Housestaff ---
Gm BENITEZ,Isazil 09/28/17 1054: Subjective Follow-up For: syncope Subjective: Afebrile, mildly tachycardic, maintaining normal blood pressure, and saturating well on room air. The patient is laying on bed looks relaxed uncomfortable and denies any current active complaints Review of Systems Constitutional: Reports: no symptoms, see HPI. Objective Last 24 Hrs of Vital Signs/I&O Vital Signs Date Time Temp Pulse Resp B/P B/P Pulse O2 O2 Flow FiO2 Mean Ox Delivery Rate 09/28 0850 100 130/80 05/ 0657 98.3 100 20 130/80 97 Room Air 09/27 2314 98.1 90 18 152/100 97 Room Air 09/27 2000 92 168/80 05/ 1412 97.2 95 18 154/90 97 Room Air Intake & Output 09/28 1600 09/28 0800 05/ 0000 Intake Total 260 Output Total Balance 260 Intake, IV 10 Intake, Oral 250 Number 1 Bowel Movements Patient 70.335 kg Weight Physical Exam General Appearance: Alert, Oriented X3, Cooperative, No Acute Distress Skin: No Rashes HEENT: Atraumatic, PERRLA, EOMI, Mucous Membr. moist/pink Neck: No JVD Cardiovascular: Regular Rate, Normal S1, Normal S2, No Murmurs Lungs: Clear to Auscultation, Normal Air Movement Abdomen: Soft, No Tenderness Neurological: Normal Speech Extremities: No Clubbing, No Cyanosis, No Edema Current Medications: Current Medications Sig/Liliya Start time Last Medication Dose Route Stop Time Status Admin Acetaminophen 650 MG Q6P PRN 09/23 2230 AC PO Acetaminophen 1,000 MG Q6P PRN 09/23 2230 AC IV Albuterol Sulfate 2 PUF Q4-6 PRN PRN 09/23 2245 AC INH Amlodipine Besylate 10 MG DAILY 09/27 09 AC 09/28 PO 0850 Buspirone HCl 30 MG QPM 09/24 2100 AC 09/27 PO 2156 Buspirone HCl 15 MG QAM 09/24 0900 AC 09/28 PO 0850 Carbidopa/Levodopa 1 TAB TID 09/23 2300 AC 09/28 PO 0850 Guaifenesin 600 MG Q12 09/24 2100 AC 09/28 PO 0850 Heparin Sodium 5,000 UNIT Q8 09/23 2300 AC 09/28 (Porcine) SC 0602 Insulin Aspart 0 AT BEDTIME 09/24 2100 AC SC Insulin Aspart 0 TIDAC 09/24 0800 AC 09/24 SC 1220 Metoprolol Succinate 50 MG DAILY 09/25 0900 AC 09/28 PO 0851 Nystatin 1 JOSEPHINE TID 09/24 0417 DC 09/27 TOP 2155 Potassium Chloride 20 MEQ ONCE ONE 09/27 1830 DC 09/27 PO 09/27 1831 2156 Pravastatin Sodium 40 MG 1700 09/24 1700 AC 09/27 PO 1657 Ropinirole HCl 1 MG BID 09/23 2330 AC 09/28 PO 0850 Tiotropium [place] 1 PUF DAILY 09/24 0900 AC 09/28 INH 0851 Venlafaxine HCl 75 MG DAILY 09/24 0900 AC 09/28 PO 0850 Last 24 Hrs of Lab/Elias Results Last 24 Hrs of Labs/Mics: Laboratory Tests 09/28/17 0625: Anion Gap 13, Estimated GFR 34 L, BUN/Creatinine Ratio 16.7, Magnesium 1.8, CBC w Diff NO MAN DIFF REQ, RBC 4.54, MCV 85.3, MCH 28.9, MCHC 33.9, RDW 13.6, MPV 6.5 L, Gran % 84.7 H, Lymphocytes % 8.2 L, Monocytes % 6.0, Eosinophils % 1.0 , Basophils % 0.1, Absolute Granulocytes 10.7 H, Absolute Lymphocytes 1.0 L, Absolute Monocytes 0.8 H, Absolute Eosinophils 0.1, Absolute Basophils 0 Assessment/Plan Assessment: 77-year-old female extensive past medical history including but not limited to RBBB, nonobstructive carotid stenosis, HTN, and HDL, who was brought in for syncopal episodes. The patient has worsening renal function while on BINDU, renal artery stenosis couldn't be rule out with ultrasound. Problem list/plan: #Syncope * Arrhythmias was ruled out on telemetry * Neurology recommended tilt table evaluation if episodes continue and no orthostasis * If episodes continue is and tilt table was negative may benefit from EEG #HTN and possible renal artery stenosis * Continue with Amlodipine to 10 mg(wasn't 2.5 mg) * Continue BINDU/ARBS * Ultrasound did not rule out renal artery stenosis, the patient may require MRA or CTA to rule out renal artery stenosis after creatinine improved. #hypokalemia * Resolved #CKD Stag3b * Creatinine this morning is 1.5, BUN is 25, GFR is 34 * The patient has proteinuria and may benefit from BINDU/ARBS after excluding renal artery stenosis -Diet: CC3 diet -DVT ppx: SQ Heparin -Full code Problem List: 1. Syncope 2. CKD (chronic kidney disease) stage 3, GFR 30-59 ml/min Pain Ratin Pain Location: NA Pain Goal: Remain pain free Pain Plan: See A&P Tomorrow's Labs & Rationales: none as pt will be DC today Андрей Ta 09/28/17 1156: Attending MD Review Statement Attending Statement Attending MD Statement: examined this patient, discuss w/resident/PA/GENERAL FREIGHT AGENT, agreed w/resident/PA/GENERAL FREIGHT AGENT, discussed with family, reviewed EMR data (avail), discussed with nursing, discussed with case mgmt, reviewed images, amended to note Attending Assessment/Plan: Patient bp improved. Follow up on renal arterial USG dopplers with left renal atrophy probabale renal artery stenosis. Consider resume losartan if bp remains elevated as outpatient. Patient creatinine has been improved since admission thought secondary to hypotensive episode few days ago in solitary functioning kidney and around baseline now. Patient can be discharged to home with close outpatient follow up with cardiology and nephrology.
--- NOTE | 2017-09-28 11:36 | PN- Nephrology ---
Assessment/Plan Nephrology Assessment: BP well controlled on just amlodipine and lopressor. Left kidney atrophic and no indication for any intervention. Suggestion: If you wish to re-introduce RAAS inhibition will need to closely watch creatinine to make sure it doesn't increase (as it might if have actual or functional renal artery stenosis on right). Regardless, current data is difficult to interpret with regards to efficacy of looking for TYREE in solitary functioning kidney. As BP easily controlled, patient elderly with history of lung cancer, I think I would treat conservatively with meds alone. Subjective Subjective: Patient feeling well. BP better today at 130 systolic. Creatinine is 1.6 which may be as good as she will get. Left kidney atrophic, probable renal artery occlusion. May have hypertensive disease in other kidney, no suggestion of TYREE on doppler Objective Vital Signs and I&Os Vital Signs Date Time Temp Pulse Resp B/P B/P Pulse O2 O2 Flow FiO2 Mean Ox Delivery Rate 09/28 0850 100 130/80 09/28 0657 98.3 100 20 130/80 97 Room Air 09/27 2314 98.1 90 18 152/100 97 Room Air 09/27 2000 92 168/80 09/27 1412 97.2 95 18 154/90 97 Room Air Intake & Output 09/28 1600 09/28 0400 09/27 1600 09/27 0400 09/26 1600 09/26 0400 Intake Total 260 550 120 480 260 Output Total Balance 260 550 120 480 260 Intake, IV 10 0 10 Intake, Oral 250 550 120 480 250 Number 1 0 0 Bowel Movements Patient 155 lb 165 lb 165 lb Weight Weight Bed scale Measurement Method Physical Exam: NAD VS as above Lungs: clear CV: no rub Abd:nontender Exts: no edema Neuro: A &O Current Medications: Current Medications Sig/Liliya Start time Last Medication Dose Route Stop Time Status Admin Acetaminophen 650 MG Q6P PRN 09/23 2230 AC PO Acetaminophen 1,000 MG Q6P PRN 09/23 2230 AC IV Albuterol Sulfate 2 PUF Q4-6 PRN PRN 09/23 2245 AC INH Amlodipine Besylate 10 MG DAILY 09/27 0900 AC 09/28 PO 0850 Buspirone HCl 30 MG QPM 09/24 2100 AC 09/27 PO 2156 Buspirone HCl 15 MG QAM 09/24 09 AC 09/28 PO 0850 Carbidopa/Levodopa 1 TAB TID 09/23 2300 AC 09/28 PO 0850 Guaifenesin 600 MG Q12 09/24 2100 AC 09/28 PO 0850 Heparin Sodium 5,000 UNIT Q8 09/23 2300 AC 09/28 (Porcine) SC 0602 Insulin Aspart 0 AT BEDTIME 09/24 2100 AC SC Insulin Aspart 0 TIDAC 09/24 0800 AC 09/24 SC 1220 Metoprolol Succinate 50 MG DAILY 09/25 0900 AC 09/28 PO 0851 Nystatin 1 JOSEPHINE TID 09/24 0417 DC 09/27 TOP 2155 Potassium Chloride 20 MEQ ONCE ONE 09/27 1830 DC 09/27 PO 09/27 1831 2156 Pravastatin Sodium 40 MG 1700 09/24 1700 AC 09/27 PO 1657 Ropinirole HCl 1 MG BID 09/23 2330 AC 09/28 PO 0850 Tiotropium [place] 1 PUF DAILY 09/24 0900 AC 09/28 INH 0851 Venlafaxine HCl 75 MG DAILY 09/24 0900 AC 09/28 PO 0850 Results Pertinent Lab Results: Laboratory Tests 09/28 09/27 0625 0645 Chemistry Sodium (137 - 145 mmol/L) 136 L 137 Potassium (3.5 - 5.1 mmol/L) 3.9 3.2 L Chloride (98 - 107 mmol/L) 96 L 94 L Carbon Dioxide (22 - 30 mmol/L) 28 27 Anion Gap (5 - 16) 13 16 BUN (7 - 17 mg/dL) 25 H 16 Creatinine (0.5 - 1.0 mg/dL) 1.5 H 1.3 H Estimated GFR (>60 ml/min) 34 L 40 L BUN/Creatinine Ratio (7 - 25 %) 16.7 12.3 Magnesium (1.6 - 2.3 mg/dL) 1.8 Hematology CBC w Diff NO MAN DIFF REQ NO MAN DIFF REQ WBC (4.8 - 10.8 /CUMM) 12.7 H 13.4 H RBC (4.20 - 5.40 /CUMM) 4.54 4.85 Hgb (12.0 - 16.0 G/DL) 13.1 14.0 Hct (37 - 47 %) 38.8 41.9 MCV (81.0 - 99.0 FL) 85.3 86.3 MCH (27.0 - 31.0 PG) 28.9 28.8 MCHC (33.0 - 37.0 G/DL) 33.9 33.4 RDW (11.5 - 14.5 %) 13.6 13.4 Plt Count (130 - 400 /CUMM) 254 300 MPV (7.4 - 10.4 FL) 6.5 L 6.2 L Gran % (42.2 - 75.2 %) 84.7 H 85.7 H Lymphocytes % (20.5 - 51.1 %) 8.2 L 7.9 L Monocytes % (1.7 - 9.3 %) 6.0 5.6 Eosinophils % (0 - 5 %) 1.0 0.7 Basophils % (0.0 - 2.0 %) 0.1 0.1 Absolute Granulocytes (1.4 - 6.5 /CUMM) 10.7 H 11.5 H Absolute Lymphocytes (1.2 - 3.4 /CUMM) 1.0 L 1.1 L Absolute Monocytes (0.10 - 0.60 /CUMM) 0.8 H 0.7 H Absolute Eosinophils (0.0 - 0.7 /CUMM) 0.1 0.1 Absolute Basophils (0.0 - 0.2 /CUMM) 0 0 05/04 1130 Chemistry Sodium (137 - 145 mmol/L) 136 L Potassium (3.5 - 5.1 mmol/L) 3.5 Chloride (98 - 107 mmol/L) 96 L Carbon Dioxide (22 - 30 mmol/L) 28 Anion Gap (5 - 16) 12 BUN (7 - 17 mg/dL) 19 H Creatinine (0.5 - 1.0 mg/dL) 1.4 H Estimated GFR (>60 ml/min) 37 L BUN/Creatinine Ratio (7 - 25 %) 13.6
[2017-09-28] MEDS ORDERED: NORVASC10 M1 PO (12:08)
[2017-09-28 14:04] VITALS: BP 154/88
--- NOTE | 2017-09-28 15:32 | Discharge Summary ---
Visit Information Visit Dates Admission Date: 09/23/17 Hospital Course Course Attending Physician: Андрей Ta MD Primary Care Physician: Daniel Osorio MD Hospital Course: 77-year-old female with past medical history of Parkinson's disease, COPD not on oxygen, mild cardiomyopathy, venous insufficiency, right bundle branch block, ex -smoker (quit 8yrs) non-small cell lung cancer status post chemotherapy/ radiation 8 yrs ago, nonobstructive carotid stenosis, hypertension, hyperlipidemia, was brought in to the emergency after her recent discharge from the same day, after working up for syncopal episodes. Of note, during her recent hospital admission, she did not have any presyncope or syncopal episodes. Her cardiac examination, and telemetry was uneventful, and she did not have any focal neurologic deficits either. Patient this time has positive orthostatic hypotension with weakness/dizziness with repeated checks. Her blood pressure was difficult to control without any medications, anterior she will continue to have orthostasis with her current regimen. Parkinson's disease could partly explain her orthostatic hypotension being accentuated with her blood pressure medication, so she was finally started on off label use of this statement 60 mg 3 times a day along with ERIC stockings, which decrease the gap of her systolic blood pressure from 80 mm Hg to 40 mm Hg from lying to standing position respectively. She was to be discharged on this regimen but had episode of nausea without any other symptoms and to monitor her, we extended her stay one more night. Overnight, she had episodes of pauses in telemetry recordings... Also, her Creatinine continued to remain around 1.6, despite avoiding nephrotoxic drugs including Losartan, obstruction, or dehydration. Most likely, this is her new baseline, as she had CKD 3b prior to admission. Upon discharge, she needs to closely follow up with her staking engineer, and likely need a loop recorder or other monitoring device as well in out patient setting. She also needs to follow up with fur clipper with a repeat BEP test. A prescription has been given to her accordingly. Allergies: Coded Allergies: NO KNOWN ALLERGIES (10/20/13) Disposition Summary Disposition Principal Diagnosis: Presyncope, secondary to Orthostatic hypotension Additional Diagnosis: Parkinson's disease, COPD not on oxygen, mild cardiomyopathy, venous insufficiency, right bundle branch block, ex-smoker (quit 8yrs) non-small cell lung cancer status post chemotherapy/radiation 8 yrs ago, nonobstructive carotid stenosis, hypertension, hyperlipidemia Discharge Instructions General Discharge Information Code Status: Full Code Patient's Diet: Diabetic diet Patient's Activity: As tolerated, with caution, as the patient has orthostatic hypotension. Follow-Up Instructions/Appts: Please take her medications as prescribed. Please to not stand up abruptly from laying position. Use the feet exercise shown to you before you stands up from sitting position. Please continue to use the ERIC stockings (compression stockings) as instructed. Please keep drinking/eating well. Please return to emergency department if symptoms worsen. Medications at Discharge Discharge Medications: Stop taking the following medications: Amlodipine Besylate (Amlodipine Besylate) 5 MG TABLET ORAL DAILY Qty = 30 Continue taking these medications: Umeclidinium Ceres (Incruse Ellipta) 62.5 MCG/ACTUATION BLST.W.DEV 1 PUFF Inhale through mouth DAILY Qty = 90 Comments: NOT GIVEN IN HOSPITAL Metoprolol Succinate (Metoprolol Succinate) 50 MG TAB.ER.24H 1 Tablet ORAL DAILY Qty = 90 Comments: Last Taken: 09/30/17 Time: 0830 AM Buspirone HCl (Buspirone HCl) 15 MG TABLET 1 Tablet ORAL Every Morning Qty = 270 Comments: Last Taken: 09/30/2017 Time: 0830 AM Venlafaxine HCl (Venlafaxine HCl ER) 75 MG CAP.ER.24H 1 Capsule ORAL DAILY Qty = 90 Comments: Last Taken: 09/30/17 Time: 8:30 AM Buspirone HCl (Buspirone HCl) 30 MG TABLET 1 Tablet ORAL Every night Qty = 30 Comments: Last Taken:09/29/17 Time: 845 PM Metolazone (Metolazone) 2.5 MG TABLET 1 Tablet ORAL QFRIDAY Comments: NOT GIVEN IN HOSPITAL. Prochlorperazine Maleate (Prochlorperazine Maleate) 10 MG TABLET 1 Tablet ORAL EVERY SIX HOURS as needed for NAUSEA/VOMITING Qty = 30 Comments: NOT GIVEN IN HOSPITAL. Gabapentin (Neurontin) 100 MG CAPSULE 1 Capsule ORAL THREE TIMES DAILY Comments: DID NOT RECEIVE WHILE IN HOSPITAL Metformin HCl (Metformin HCl ER) 1,000 MG TAB.ER.24 1 Tablet ORAL DAILY Comments: NOT GIVEN IN HOSPITAL. Carbidopa/Levodopa (Sinemet 25-100 MG Tablet) 25 MG-100 MG TABLET 1 Tablet ORAL THREE TIMES DAILY Comments: Last Taken: 09/30/17 Time: 1:30 PM Pravastatin Sodium (Pravastatin Sodium) 40 MG TABLET 1 Tablet ORAL DAILY Comments: Last Taken: 09/29/17 Time: 455 PM Ropinirole HCl (Ropinirole HCl) 1 MG TABLET 1 Tablet ORAL Q1400, 2100 Comments: Last Taken: 09/30/17 Time: 8:30 AM Albuterol Sulfate (Proair Hfa) 90 MCG HFA.AER.AD 2 Puff Inhale through mouth EVERY 4-6 HOURS NEEDED as needed for SHORTNESS OF BREATH Comments: NOT GIVEN IN HOSPITAL. Tramadol HCl (Tramadol HCl) 50 MG TABLET 1 Tablet ORAL THREE TIMES A DAY NEEDED as needed for PAIN Comments: NOT GIVEN IN HOSPITAL. Start taking the following new medications: Pyridostigmine Ceres (Pyridostigmine Ceres) 60 MG TABLET 60 Milligram ORAL THREE TIMES DAILY Qty = 90 No Refills Instructions: . Comments: Last Taken: 09/30/17 Time: 130 PM Amlodipine Besylate (Norvasc) 10 MG TABLET 10 Milligram ORAL DAILY Qty = 60 Refills = 1 Instructions: . Comments: Last Taken: 09/30/17 Time: 8:30 AM Copies To: Julia BENITEZ,Mike Thorpe; Stefani BENITEZ,Yuan Trujillo; Luiz BENITEZ,Corwin Wilkinson; Devon BENITEZ, Daniel Lagunas
[2017-09-28 16:42] VITALS: BP 148/66
[2017-09-28 22:42] VITALS: BP 168/88
[2017-09-29 06:37] VITALS: BP 154/72
--- NOTE | 2017-09-29 07:57 | PN- Housestaff ---
Richard BENITEZ,Benedicto 09/29/17 0756: Subjective Follow-up For: Syncope Complaints: no complaints Tele-Events Since Last Visit: sinus rhythm in 60s, no other events Subjective: I followed up and examined the patient today. She is resting comfortably in bed , does not appear to be in any distress, does not offer any complaints either. Her vital signs have remained stable, no arrhythmias, no nursing issues reported to me either. Her orthostatic vitals this morning was positive at 0800 hrs -180/80 pulse 92 lying; -170/76 pulse 102 sitting; -146/80 pulse 120 standing, which is better than yesterday. BP: again at 1428 hrs today as follows: -lyin/80 puse 92 -sitting 136/70 pulse 104 -standing 96/60 pulse 110 Orthostat positive. Review of Systems Constitutional: Reports: no symptoms. Objective Last 24 Hrs of Vital Signs/I&O Vital Signs Date Time Temp Pulse Resp B/P B/P Pulse O2 O2 Flow FiO2 Mean Ox Delivery Rate 09/29 0937 106 168/80 09/29 0637 98.8 93 20 154/72 98 Room Air 09/28 2242 98.7 90 20 168/88 98 Room Air 09/28 1642 95 148/66 Intake & Output 09/29 1600 /07 0800 09/29 0000 Intake Total 370 200 435 Output Total Balance 370 200 435 Intake, IV 10 10 Intake, Oral 360 200 425 Number 0 Bowel Movements Patient 70.307 kg Weight Weight Bed scale Measurement Method Physical Exam General Appearance: Alert, Oriented X3, Cooperative, No Acute Distress, overweight Other Physical Findings: Skin Temp/Moisture Exam: Warm/Dry Sepsis Skin Exam (color): Normal for Ethnicity HEENT: Atraumatic, PERRLA, EOMI, Mucous Membr. moist/pink Cardiovascular: Regular Rate, Normal S1, Normal S2, No Murmurs Lungs: Clear to Auscultation, Normal Air Movement Abdomen: Normal Bowel Sounds, Soft, No Tenderness Neurological: grossly intact Orthostat BP: Positive today Current Medications: Current Medications Sig/Liliya Start time Last Medication Dose Route Stop Time Status Admin Acetaminophen 650 MG Q6P PRN 09/23 2230 AC PO Acetaminophen 1,000 MG Q6P PRN 09/23 2230 AC IV Albuterol Sulfate 2 PUF Q4-6 PRN PRN 09/23 2245 AC INH Amlodipine Besylate 10 MG DAILY 09/27 0900 AC 09/29 PO 0930 Buspirone HCl 30 MG QPM 09/24 2100 AC 09/28 PO 2102 Buspirone HCl 15 MG QAM 09/24 0900 AC 09/29 PO 0930 Carbidopa/Levodopa 1 TAB TID 09/23 2300 AC 09/29 PO 1346 Guaifenesin 600 MG Q12 09/24 2100 AC 09/29 PO 0930 Heparin Sodium 5,000 UNIT Q8 09/23 2300 AC 09/29 (Porcine) SC 1345 Insulin Aspart 0 AT BEDTIME 09/24 2100 AC SC Insulin Aspart 0 TIDAC 09/24 0800 AC 09/28 SC 1324 Metoprolol Succinate 50 MG DAILY 09/25 0900 AC 09/29 PO 0931 Pravastatin Sodium 40 MG 1700 09/24 1700 AC 09/28 PO 1707 Ropinirole HCl 1 MG BID 09/23 2330 AC 09/29 PO 0930 Tiotropium [place] 1 PUF DAILY 09/24 09 AC 09/29 INH 0931 Venlafaxine HCl 75 MG DAILY 09/24 09 AC 09/29 PO 0930 Last 24 Hrs of Lab/Elias Results Last 24 Hrs of Labs/Mics: Laboratory Tests 09/29/17 0735: Anion Gap 12, Estimated GFR 37 L, BUN/Creatinine Ratio 18.6 Assessment/Plan Assessment: 77-year-old female with past medical history of COPD not on oxygen, mild cardiomyopathy, venous insufficiency, right bundle branch block, ex-smoker (quit 8yrs) non-small cell lung cancer status post chemotherapy/radiation 8 yrs ago, nonobstructive carotid stenosis, hypertension, hyperlipidemia, was brought in to the emergency after her recent discharge from the same day, after working up for syncopal episodes. Of note, during her recent hospital admission, she did not have any presyncope or syncopal episodes. Her cardiac examination, and telemetry was uneventful, and she did not have any focal neurologic deficits either. Patient is currently admitted in the telemetry be floor for the management of following issues: #Syncope/orthostatic hypotension No focal neurologic deficit, no arrhythmias, no complaints of dizziness while she is an inpatient so far. She has been evaluated by cardiology as well as neurology for the same. However orthostatic hypotension has been positive, in fact she had a drop in blood pressure yesterday as well which led to cancellation of her discharge. This morning, or orthostatic is still positive, but is lesser than yesterday. * Will try to walk around the floor today to check for return of symptoms. * Will check her orthostat BP again and if better, will discharge her. * UPDATE: Orthostat positive, so will not discharge her today. * Spoke with unattended ground sensor specialist Dr. Car who suggested starting patient on pyridostigmine 60 mg TID when awake for the orthostatic hypotension. * Also starting T.E.D. stocking from today. * She has been taught measures to mitigate orthostatic hypotension. Patient understands it. #HTN/ Possible renal artery stenosis * Patient is on long-acting beta werner, amlodipine 10 mg. Her ARB has been stopped given her CHAS on CKD. * She will need further follow up for renal artery status. #CKD Stage 3b Renal status has slightly deteriorated in this month. Most likely this is her baseline. Diet: CC3 diet DVT ppx: SQ Heparin Code status: Full code Problem List: 1. Syncope 2. Orthostatic hypotension 3. CKD (chronic kidney disease) stage 3, GFR 30-59 ml/min 4. Hypertension Pain Ratin Pain Location: - Pain Goal: Pain 4 or less Pain Plan: prn Tomorrow's Labs & Rationales: BEP if she stays today Mela Rush MD 09/29/17 1458: Attending MD Review Statement Attending Statement Attending MD Statement: examined this patient, discuss w/resident/PA/TESTING MACHINE OPERATOR, agreed w/resident/PA/TESTING MACHINE OPERATOR, reviewed EMR data (avail), discussed with nursing, discussed with case mgmt Attending Assessment/Plan: Patient feels well and is eager to leave however she continues to be profoundly orthostatic. Yesterday her systolic dropped from 145 lying down to 88 standing in today from 160 lying down to 90 standing. She could barely ambulate the distance of 1 room before feeling like she was going to pass out. She has underlying Parkinson's disease and hypertension. Her medication regimen has been optimized with Norvasc 10 mg and metoprolol 50 mg at this point. We are not going to rechallenge her with an Oni or arb because there is a worry that she only has an atrophic kidney on one side and could have renal artery stenosis on the other side. Renal is recommending conservative therapy even if that's the case. We are talking to cardiology about optimizing medical management for her supine hypertension and severe orthostatic hypotension.
[2017-09-29 09:37] VITALS: BP 168/80
--- NOTE | 2017-09-29 10:13 | PN- Cardiology ---
Subjective Subjective: The patient is awake, alert The events of the last 24 hours as well as telemetry were reviewed. Review of Systems: The review of systems is negative for chest pains, palpitations nor lightheadedness. The remainder of the 14 point review of systems is noncontributory with the exception of above. Objective Vital Signs and I&Os Vital Signs Date Time Temp Pulse Resp B/P B/P Pulse O2 O2 Flow FiO2 Mean Ox Delivery Rate 09/29 09 106 168/80 09/29 0637 98.8 93 20 154/72 98 Room Air 09/28 2242 98.7 90 20 168/88 98 Room Air 09/28 1642 95 148/66 09/28 1404 98.1 91 20 154/88 96 Room Air Intake & Output 09/29 1600 09/29 0809/29 0000 09/28 1600 09/28 0800 09/28 0000 Intake Total 200 435 500 260 Output Total Balance 200 435 500 260 Intake, IV 10 10 Intake, Oral 200 425 500 250 Number 0 1 Bowel Movements Patient 155 lb 155 lb Weight Weight Bed scale Measurement Method Physical Exam: General: Nontoxic, no apparent distress. HEENT: Sclera and conjunctiva within normal limits, without xanthelasmas. Neck: Carotids 2+ without bruits. Respiratory: Clear to auscultation, air movement is good, without accessory respiratory muscle use. Heart: Regular rate and rhythm, without murmurs, without JVD. Abdomen: Soft, nontender, no masses, normoactive bowel sounds. Extremities: Without clubbing, cyanosis, without edema. Neuro: Nonfocal exam, strength, 5 out of 5 Skin: Within normal limits without lesions. Psych: Mood and affect: Normal Current Medications: Current Medications Sig/Liliya Start time Last Medication Dose Route Stop Time Status Admin Acetaminophen 650 MG Q6P PRN 09/23 2230 AC PO Acetaminophen 1,000 MG Q6P PRN 09/23 2230 AC IV Albuterol Sulfate 2 PUF Q4-6 PRN PRN 09/23 2245 AC INH Amlodipine Besylate 10 MG DAILY 09/27 899 AC 09/29 PO 0930 Buspirone HCl 30 MG QPM 09/24 2100 AC 09/28 PO 2102 Buspirone HCl 15 MG QAM 09/24 09 AC 09/29 PO 0930 Carbidopa/Levodopa 1 TAB TID 09/23 2300 AC 09/29 PO 0930 Guaifenesin 600 MG Q12 09/24 2100 AC 09/29 PO 0930 Heparin Sodium 5,000 UNIT Q8 09/23 2300 AC 09/29 (Porcine) SC 0659 Insulin Aspart 0 AT BEDTIME 09/24 2100 AC SC Insulin Aspart 0 TIDAC 09/24 0800 AC 09/28 SC 1324 Metoprolol Succinate 50 MG DAILY 09/25 0900 AC 09/29 PO 0931 Pravastatin Sodium 40 MG 1700 09/24 1700 AC 09/28 PO 1707 Ropinirole HCl 1 MG BID 09/23 2330 AC 09/29 PO 0930 Tiotropium [place] 1 PUF DAILY 09/24 09 AC 09/29 INH 0931 Venlafaxine HCl 75 MG DAILY 09/24 09 AC 09/29 PO 0930 Results Last 48 Hrs of Labs/Mics: Laboratory Tests 09/29/17 0735: Anion Gap 12, Estimated GFR 37 L, BUN/Creatinine Ratio 18.6 09/28/17 0625: Anion Gap 13, Estimated GFR 34 L, BUN/Creatinine Ratio 16.7, Magnesium 1.8, CBC w Diff NO MAN DIFF REQ, RBC 4.54, MCV 85.3, MCH 28.9, MCHC 33.9, RDW 13.6, MPV 6.5 L, Gran % 84.7 H, Lymphocytes % 8.2 L, Monocytes % 6.0, Eosinophils % 1.0 , Basophils % 0.1, Absolute Granulocytes 10.7 H, Absolute Lymphocytes 1.0 L, Absolute Monocytes 0.8 H, Absolute Eosinophils 0.1, Absolute Basophils 0 Assessment/Plan Assessment/Plan 1. Renal insufficiency, chronic 2. Syncope; recurrent 3. History of nonobstructive carotid disease 4. Known right bundle branch block 5. COPD 6. History of non-small cell lung cancer 7. History of hypertension/hyperlipidemia 8. History of mild cardiomyopathy in the past with possible infarct versus artifact on nuclear stress test 9. Parkinson's disease The patient feels overall improved. Nephrology input has been reviewed and appreciated. Currently, she remains asymptomatic; however, mildly tachycardic. We will continue her medication regimen including metoprolol. She will follow- up as an outpatient and likely undergo outpatient event monitoring seclude an arrhythmic etiology for her syncopal episodes. Further titration of her cardiac regimen will be performed as an outpatient. Continue telemetry? No
[2017-09-29 15:09] VITALS: BP 160/80
[2017-09-29 23:38] VITALS: BP 138/66
[2017-09-30 07:04] VITALS: BP 136/66
--- NOTE | 2017-09-30 07:50 | PN- Housestaff ---
Richard BENITEZ,Benedicto 09/30/17 0749: Subjective Follow-up For: Syncope Complaints: no complaints Tele-Events Since Last Visit: sinus rhythm in 60s, no other events Subjective: I followed up and examined the patient today. She is resting comfortably in bed , does not appear to be in any distress, does not offer any complaints either. Her vital signs have remained stable, no arrhythmias, no nursing issues reported to me either. Her orthostatic vitals this morning was positive at 0600 hrs (pulse not recorded ), which is better then yesterday: 150/80 lying 138/76 sitting 126/80 standing SBP changes of 24 mm Hg. Asymptomatic. At 0800 hrs, her orthostatic vitals are: 164/90, hr 92 lying 122/80, hr 110 sitting 120/80, hr 115 standing SBP changes of 44 mm Hg. Asymptomatic. Review of Systems Constitutional: Reports: no symptoms. Objective Last 24 Hrs of Vital Signs/I&O Vital Signs Date Time Temp Pulse Resp B/P B/P Pulse O2 O2 Flow FiO2 Mean Ox Delivery Rate 09/30 0801 88 136/66 09/30 0801 88 136/66 / 0704 97.3 88 20 136/66 95 Room Air 05/ 0000 Room Air / 2338 98.3 78 20 138/66 96 /07 1509 98.5 92 20 160/80 97 Room Air Intake & Output 09/30 1600 /08 0800 05/08 0000 Intake Total 120 Output Total 450 Balance -330 Intake, Oral 120 Output, Urine 450 Patient 70.052 kg Weight Physical Exam General Appearance: Alert, Oriented X3, Cooperative, No Acute Distress, overweight Other Physical Findings: Skin Temp/Moisture Exam: Warm/Dry Sepsis Skin Exam (color): Normal for Ethnicity HEENT: Atraumatic, PERRLA, EOMI, Mucous Membr. moist/pink Cardiovascular: Regular Rate, Normal S1, Normal S2, No Murmurs Lungs: Clear to Auscultation, Normal Air Movement Abdomen: Normal Bowel Sounds, Soft, No Tenderness Neurological: grossly intact Orthostat BP: Positive today Current Medications: Current Medications Sig/Liliya Start time Last Medication Dose Route Stop Time Status Admin Acetaminophen 650 MG Q6P PRN 09/23 2230 AC PO Acetaminophen 1,000 MG Q6P PRN 09/23 2230 AC IV Albuterol Sulfate 2 PUF Q4-6 PRN PRN 09/23 2245 AC INH Amlodipine Besylate 10 MG DAILY 09/27 0900 AC 09/30 PO 0801 Buspirone HCl 30 MG QPM 09/24 2100 AC 09/29 PO 2045 Buspirone HCl 15 MG QAM 09/24 0900 AC 09/30 PO 0800 Carbidopa/Levodopa 1 TAB TID 09/23 2300 AC 09/30 PO 0801 Guaifenesin 600 MG Q12 09/24 2100 AC 09/30 PO 0801 Heparin Sodium 5,000 UNIT Q8 09/23 2300 AC 09/30 (Porcine) SC 0544 Insulin Aspart 0 AT BEDTIME 09/24 2100 AC SC Insulin Aspart 0 TIDAC 09/24 0800 AC 09/29 SC 1743 Metoprolol Succinate 50 MG DAILY 09/25 0900 AC 09/30 PO 0801 Patient Medication 1 ED ONE ONE 09/29 1600 DC 09/29 Teaching ED 09/29 1601 1654 Pravastatin Sodium 40 MG 1700 09/24 1700 AC 09/29 PO 1655 Pyridostigmine 60 MG TID 09/29 1530 AC 09/30 [place] PO 0805 Ropinirole HCl 1 MG BID 09/23 2330 AC 09/30 PO 0801 Tiotropium [place] 1 PUF DAILY 09/24 0900 AC 09/30 INH 0803 Venlafaxine HCl 75 MG DAILY 09/24 0900 AC 09/30 PO 0801 Last 24 Hrs of Lab/Elias Results Last 24 Hrs of Labs/Mics: Laboratory Tests 09/30/17 0624: Anion Gap 11, Estimated GFR 31 L, BUN/Creatinine Ratio 15.0 Assessment/Plan Assessment: 77-year-old female with past medical history of COPD not on oxygen, mild cardiomyopathy, venous insufficiency, right bundle branch block, ex-smoker (quit 8yrs) non-small cell lung cancer status post chemotherapy/radiation 8 yrs ago, nonobstructive carotid stenosis, hypertension, hyperlipidemia, was brought in to the emergency after her recent discharge from the same day, after working up for syncopal episodes. Of note, during her recent hospital admission, she did not have any presyncope or syncopal episodes. Her cardiac examination, and telemetry was uneventful, and she did not have any focal neurologic deficits either. Patient is currently admitted in the telemetry be floor for the management of following issues: #Syncope/orthostatic hypotension No focal neurologic deficit, no arrhythmias, no complaints of dizziness while she is an inpatient so far. She has been evaluated by cardiology as well as neurology for the same. However orthostatic hypotension has been positive, in fact she had a drop in blood pressure yesterday as well which led to cancellation of her discharge. This morning, or orthostatic is still positive, but is lesser than yesterday. * Will try to walk around the floor today to check for return of symptoms. * Will check her orthostat BP again and if better, will discharge her. * Orthostat still positive but less than before and appearantly ERIC stockings and Pyridostigmine is helping. Discussed with Electrical Accessories Ii Assembler Dr Caicedo, and she can be discharged today, as long as she follows up with Electrical Accessories Ii Assembler in or within a week's time. * She has been refusing home visiting nurse, even if she will come in only to take her blood pressures or check on her symptoms. * She has been taught measures to mitigate orthostatic hypotension. Patient understands it. #HTN/ Possible renal artery stenosis * Patient is on long-acting beta werner, amlodipine 10 mg. Her ARB has been stopped given her CHAS on CKD. * She will need further follow up for renal artery status. #CKD Stage 3b Renal status has slightly deteriorated in this month. Most likely this is her baseline. Creatinine today is 1.8. She will need a close follow up with pattern generator operator on discharge. Diet: CC3 diet DVT ppx: SQ Heparin Code status: Full code Problem List: 1. Syncope 2. Orthostatic hypotension 3. Parkinsons Pain Ratin Pain Location: - Pain Goal: Pain 4 or less Pain Plan: prn Tomorrow's Labs & Rationales: - Андрей Ta 09/30/17 1105: Attending MD Review Statement Attending Statement Attending MD Statement: examined this patient, discuss w/resident/PA/SURFBOARD DESIGNER, agreed w/resident/PA/SURFBOARD DESIGNER, discussed with family, reviewed EMR data (avail), discussed with nursing, discussed with case mgmt, reviewed images, amended to note Attending Assessment/Plan: Patient with bp better controlled today. Started on pyridostigmine 60 tid for orthostasis. Patient orthostats with mild improvement than better. Continue with norvasc 10 mg and Metorpolol 50. Her creatinine is stable. Would defer losartan for now. Patient can be discharged with close outpatient follow up with cardiology. Patient if experiences recurrent symtomns she is instructed to call 911 or come to er immediately.
--- NOTE | 2017-09-30 10:33 | PN- Cardiology ---
Subjective Subjective: Patient only complains of lightheadedness today. No chest pain or shortness of breath. Review of Systems: Eyes no blurred or double vision Ears no deafness or ringing Nose and throat no recurrent sinusitis Lungs per history of present illness Heart per history of present illness Abdomen no nausea vomiting Musculoskeletal occasional muscle and joint pains Psych no anxiety or depression Neuro without recurrent headache or seizures Endocrine no heat or cold intolerance Objective Vital Signs and I&Os Vital Signs Date Time Temp Pulse Resp B/P B/P Pulse O2 O2 Flow FiO2 Mean Ox Delivery Rate 09/30 0801 88 136/66 09/30 0801 88 136/66 09/30 0704 97.3 88 20 136/66 95 Room Air 09/30 0000 Room Air 09/29 2338 98.3 78 20 138/66 96 09/29 1509 98.5 92 20 160/80 97 Room Air Intake & Output 09/30 1600 09/30 0800 09/30 0000 09/29 1600 09/29 0809/29 0000 Intake Total 120 370 200 435 Output Total 450 Balance -330 370 200 435 Intake, IV 10 10 Intake, Oral 120 360 200 425 Number 0 Bowel Movements Output, Urine 450 Patient 154 lb 155 lb Weight Weight Bed scale Measurement Method Physical Exam: Patient is a well-developed well-nourished female appearing in no acute distress HEENT is unremarkable Neck is supple there is no JVD Lungs are clear Heart regular rhythm S1 and S2 are normal no murmurs gallops or rubs Abdomen bowel sounds positive Extremities without edema Current Medications: Current Medications Sig/Liliya Start time Last Medication Dose Route Stop Time Status Admin Acetaminophen 650 MG Q6P PRN 09/23 2229 AC PO Acetaminophen 1,000 MG Q6P PRN 09/23 223 AC IV Albuterol Sulfate 2 PUF Q4-6 PRN PRN 09/23 2245 AC INH Amlodipine Besylate 10 MG DAILY 09/27 09 AC 09/30 PO 08 Buspirone HCl 30 MG QPM 09/24 2099 AC 09/29 PO 204 Buspirone HCl 15 MG QAM 09/24 09 AC 09/30 PO 08 Carbidopa/Levodopa 1 TAB TID 09/23 230 AC 09/30 PO 08 Guaifenesin 600 MG Q12 09/24 2099 AC 09/30 PO 08 Heparin Sodium 5,000 UNIT Q8 09/23 2300 AC 09/30 (Porcine) SC 0544 Insulin Aspart 0 AT BEDTIME 09/24 2100 AC SC Insulin Aspart 0 TIDAC 09/24 0800 AC 09/29 SC 1743 Metoprolol Succinate 50 MG DAILY 09/25 0900 AC 09/30 PO 0801 Patient Medication 1 ED ONE ONE 09/29 1600 DC 09/29 Teaching ED 09/29 1601 1654 Pravastatin Sodium 40 MG 1700 09/24 1700 AC 09/29 PO 1655 Pyridostigmine 60 MG TID 09/29 1530 AC 09/30 [place] PO 0805 Ropinirole HCl 1 MG BID 09/23 2330 AC 09/30 PO 0801 Tiotropium [place] 1 PUF DAILY 09/24 09 AC 09/30 INH 0803 Venlafaxine HCl 75 MG DAILY 09/24 09 AC 09/30 PO 0801 Results Last 48 Hrs of Labs/Mics: Laboratory Tests 09/30/17 0624: Anion Gap 11, Estimated GFR 31 L, BUN/Creatinine Ratio 15.0 09/29/17 0735: Anion Gap 12, Estimated GFR 37 L, BUN/Creatinine Ratio 18.6 Assessment/Plan Assessment/Plan 1. Renal insufficiency, chronic 2. Syncope; recurrent 3. History of nonobstructive carotid disease 4. Known right bundle branch block 5. COPD 6. History of non-small cell lung cancer 7. History of hypertension/hyperlipidemia 8. History of mild cardiomyopathy in the past with possible infarct versus artifact on nuclear stress test 9. Parkinson's disease 10. Orthostatic hypotension on [place] Recommendations 1. Continue current medications 2. Patient will follow-up as an outpatient and likely undergo an outpatient event monitor to rule out arrhythmia as an etiology to her syncope 3. Monitor orthostatic vitals prior to discharge Continue telemetry? No
[2017-09-30] MEDS ORDERED: PYRIDOSTIGMINE60 M1 PO ×2 (12:56→13:15)
[2017-09-30] MEDS ORDERED: NORVASC10 M1 PO (13:15)
[2017-09-30 14:39] VITALS: BP 160/90
--- NOTE | 2017-09-30 20:04 | Event Note ---
Event Note Event Note: situation :Pt was supposed to be discharged today but I was paged by the nurse as the pt started vomiting and had a 5 sec pause around 7:30.In addition she had multiple loose bowel movement. Pt denied any chest pain, light headness , weakness or any other symp, O/E was wnl, V/S BP was 160/90 with positive orthostatic hypotension, pulse 89 her K was 3.3 in the morning , it was repleted Background: 77-year-old female with past medical history of COPD not on oxygen, mild cardiomyopathy, venous insufficiency, right bundle branch block, ex-smoker (quit 8yrs) non-small cell lung cancer status post chemotherapy/radiation 8 yrs ago, nonobstructive carotid stenosis, hypertension, hyperlipidemia, was brought in to the emergency after her recent discharge from the same day, after working up for syncopal episodes. A &R: DD includes electrolyte imbalance, vasovagal, IHD , her K was 3.3 in the morning , it was repleted MG was 1.7 , it was repleted with 1 gm of MGSO4 she was kept on gentle rehydration with D5-1/2 NS at the rate of 75ml/hr recheck BEp: Na 138, K 4.2, Cr 1.6 , EKG didn't show any acute changes and trops were negative Follow up:pt had 2 pauses of 3.5 seconds around 1:30 pm while she was having bowel movement, it is possibly due to vasovagal I called the film painter Dr. Caicedo and discussed the situation with him, he thinks this is most likely due to vasovagal and recommended continuing the current treatment.
[2017-09-30 23:16] VITALS: BP 160/90
[2017-10-01 02:04] VITALS: BP 192/90
[2017-10-01 07:02] VITALS: BP 142/80
--- NOTE | 2017-10-01 07:12 | PN- Housestaff ---
Salena BENITEZ,[facility] 10/01/17 0712: Subjective Follow-up For: Syncope Tele-Events Since Last Visit: NSR BBB Pauses noted 2.4-3.8 sec. Subjective: Ms Keith was seen and examined this morning. She is resting comfortably in bed. States she was unable to sleep very much last night. During the second time I went to visit with the entire team, patient states that she was feeling better. She been tolerating by mouth intake well. Denies any fever, chills, nausea, vomiting. 142/80 lying 130/76 sitting 118/80 standing SBP changes of 24 mm Hg. Asymptomatic. At 2000 hrs, her orthostatic vitals are: 170/90, hr 92 lying 140/80, hr 93 sitting 130/80, hr 98 standing SBP changes of 40 mm Hg. Asymptomatic. Review of Systems Constitutional: Reports: see HPI. Objective Last 24 Hrs of Vital Signs/I&O Vital Signs Date Time Temp Pulse Resp B/P B/P Pulse O2 O2 Flow FiO2 Mean Ox Delivery Rate 10/01 1423 98.8 82 20 144/72 96 Room Air 10/01 0826 138/70 10/01 0825 138/76 10/01 0702 99.3 111 18 142/80 97 Room Air 10/01 0204 108 192/90 10/01 0000 Room Air 09/30 2316 98.8 89 20 160/90 98 Room Air Intake & Output 10/01 1600 10/01 0800 05/ 0000 Intake Total 700 420 120 Output Total 650 Balance 50 420 120 Intake, IV 300 300 Intake, Oral 400 120 120 Number 1 1 Bowel Movements Output, Urine 650 Patient 69.995 kg Weight Physical Exam General Appearance: Alert, Oriented X3, Cooperative Lymphatic: Axillary nl Cardiovascular: Regular Rate, Normal S1, Normal S2 Lungs: Normal Air Movement Abdomen: Normal Bowel Sounds Neurological: Normal Gait, Normal Speech, Strength at 5/5 X4 Ext Extremities: No Clubbing, No Cyanosis, No Edema, Stocking on both feet Vascular: Normal Pulses Current Medications: Current Medications Sig/Liliya Start time Last Medication Dose Route Stop Time Status Admin Acetaminophen 650 MG Q6P PRN 09/23 2230 AC PO Acetaminophen 1,000 MG Q6P PRN 09/23 2230 AC IV Albuterol Sulfate 2 PUF Q4-6 PRN PRN 09/23 2245 AC INH Amlodipine Besylate 10 MG DAILY 09/27 0900 AC 10/01 PO 0825 Buspirone HCl 30 MG QPM 09/24 2100 AC 09/30 PO 2129 Buspirone HCl 15 MG QAM 09/24 0900 AC 10/01 PO 0825 Carbidopa/Levodopa 1 TAB TID 09/23 2300 AC 10/01 PO 1319 Dextrose/Sodium 1,000 ML Q13H 10/01 0145 DC 10/01 Chloride IV 0154 Guaifenesin 600 MG Q12 09/24 2100 AC 10/01 PO 0825 Heparin Sodium 5,000 UNIT Q8 09/23 2300 AC 10/01 (Porcine) SC 1320 Insulin Aspart 0 AT BEDTIME 09/24 2100 AC SC Insulin Aspart 0 TIDAC 09/24 08 AC 10/01 SC 0828 Magnesium Oxide 400 MG ONE ONE 10/01 0130 CAN PO 10/01 0131 Magnesium Sulfate 1 GM ONCE ONE 10/01 0145 DC 10/01 Dextrose/Water 100 ML IV 10/01 0544 0154 Metoprolol Succinate 50 MG DAILY 09/25 0900 AC 10/01 PO 0826 Pravastatin Sodium 40 MG 1700 09/24 1700 AC 09/30 PO 1744 Pyridostigmine 60 MG TID 09/29 1530 AC 10/01 [place] PO 1319 Ropinirole HCl 1 MG BID 09/23 2330 AC 10/01 PO 0826 Sodium Chloride 1,000 ML .[id number] 09/30 2045 DC IV 10/01 1004 Tiotropium [place] 1 PUF DAILY 09/24 09 AC 10/01 INH 0827 Venlafaxine HCl 75 MG DAILY 09/24 09 AC 10/01 PO 0825 Last 24 Hrs of Lab/Elias Results Last 24 Hrs of Labs/Mics: Laboratory Tests 09/30/17 2030: Anion Gap 14, Estimated GFR 31 L, BUN/Creatinine Ratio 16.9, Magnesium 1.8, Troponin I 0.02 Microbiology 10/01 0155 STOOL: Clostridium difficile Toxin A & B - COMP Assessment/Plan Assessment: Ms Keith is a 77-year-old female with past medical history of COPD not on oxygen, mild cardiomyopathy, venous insufficiency, right bundle branch block, ex -smoker (quit 8yrs) non-small cell lung cancer status post chemotherapy/ radiation 8 yrs ago, nonobstructive carotid stenosis, hypertension, hyperlipidemia, was brought in to the emergency after her recent discharge from the same day, after working up for syncopal episodes. Of note, during her recent hospital admission, she did not have any presyncope or syncopal episodes. Her cardiac examination, and telemetry was uneventful, and she did not have any focal neurologic deficits either. Patient is currently admitted in the telemetry be floor for the management of following issues: #Syncope/orthostatic hypotension No focal neurologic deficit, no arrhythmias, no complaints of dizziness while she is an inpatient so far. She has been evaluated by cardiology as well as neurology for the same. However orthostatic hypotension has been positive. This morning, or orthostatic is still positive. * Will check her orthostat BP again * Given patients clinical condition over the last 24 hours it appears that the patient may benefit from insertion of a pacemaker as per recommendations from cardiology. She'll be kept nothing by mouth from midnight 10/02/2017 and undergo procedure in a.m. The service of Dr. Corrigan has been contacted and the patient is on the schedule for tomorrow. * She has been refusing home visiting nurse, even if she will come in only to take her blood pressures or check on her symptoms. * She has been taught measures to mitigate orthostatic hypotension. Patient understands it. #HTN/ Possible renal artery stenosis * Patient is on long-acting beta werner, amlodipine 10 mg. * Her ARB has been stopped given her CHAS on CKD. * She will need further follow up for renal artery status. #CKD Stage 3b Renal status has slightly deteriorated in this month. Most likely this is her baseline. Creatinine today is 1.6. She will need a close follow up with financial management analyst on discharge. Diet: CC3 diet DVT ppx: SQ Heparin Code status: Full code Problem List: 1. Orthostatic hypotension 2. Syncope 3. Bradycardia Pain Ratin Pain Location: No Pain Pain Goal: Remain pain free Pain Plan: Tyelnol PRN Tomorrow's Labs & Rationales: CBC: Monitor H/H prior to procedure. BEP: monitor electorlytes in the setting ok CHAS Андрей Ta 10/01/17 1055: Attending Review Statement Attending Statement Attending MD Statement: examined this patient, discuss w/resident/PA/SEWER LINE REPAIRER, agreed w/resident/PA/SEWER LINE REPAIRER, discussed with family, reviewed EMR data (avail), discussed with nursing, discussed with case mgmt, reviewed images, amended to note Attending Assessment/Plan: Patient c/o nasuea yesterday evening and dizziness. Overnight tele events with breff pause 6 sec and AV robbie block and sick sinus syndrome HR 40-50s. Cardiology appreicated and recommend pacemaker insertion as thought syncope epsiodes 2/2 bradycardia. She is positive for orthostatic hypotension and that might be contributing to her episodes. Obtain CTVS consult, continue to monitor on telemetry. If hypertensive trial of iv hydralazine for bp control. Continue with rest of meds. B werner on hold.
--- NOTE | 2017-10-01 10:22 | PN- Cardiology ---
Subjective Subjective: The patient is awake, alert Telemetry demonstrated an approximate 6 second pause as well as episodes of second-degree AV block and significant bradycardia with heart rates of 40s. This was in the context of nausea; however, the patient felt symptoms of lightheadedness that came to her previous syncope and near syncopal episodes. Review of Systems: The review of systems is negative for chest pains, palpitations nor lightheadedness. The remainder of the 14 point review of systems is noncontributory with the exception of above. Objective Vital Signs and I&Os Vital Signs Date Time Temp Pulse Resp B/P B/P Pulse O2 O2 Flow FiO2 Mean Ox Delivery Rate 10/01 825 138/70 10/01 0825 138/76 10/01 0702 99.3 111 18 142/80 97 Room Air 10/01 0204 108 192/90 10/01 0000 Room Air 09/30 2316 98.8 89 20 160/90 98 Room Air 09/30 1439 98.5 88 20 160/90 98 Room Air Intake & Output 10/01 1600 10/01 0000 09/30 1600 09/30 0000 Intake Total 420 120 300 120 Output Total 450 Balance 420 120 300 -330 Intake, IV 300 Intake, Oral 120 120 300 120 Number 1 1 Bowel Movements Output, Urine 450 Patient 154 lb 154 lb Weight Physical Exam: General: Nontoxic, no apparent distress. HEENT: Sclera and conjunctiva within normal limits, without xanthelasmas. Neck: Carotids 2+ without bruits. Respiratory: Scattered rhonchi, air movement is good, without accessory respiratory muscle use. Heart: Regular rate and rhythm, without murmurs, without JVD. Abdomen: Soft, nontender, no masses, normoactive bowel sounds. Extremities: Without clubbing, cyanosis, without edema. Neuro: Nonfocal exam, strength, 5 out of 5 Skin: Within normal limits without lesions. Psych: Mood and affect: Normal Current Medications: Current Medications Sig/Liliya Start time Last Medication Dose Route Stop Time Status Admin Acetaminophen 650 MG Q6P PRN 09/23 223 AC PO Acetaminophen 1,000 MG Q6P PRN 09/23 223 AC IV Albuterol Sulfate 2 PUF Q4-6 PRN PRN 09/23 2245 AC INH Amlodipine Besylate 10 MG DAILY 09/27 899 AC 10/01 PO 0825 Buspirone HCl 30 MG QPM 09/24 2100 AC 09/30 PO 2129 Buspirone HCl 15 MG QAM 09/24 0900 AC 10/01 PO 0825 Carbidopa/Levodopa 1 TAB TID 09/23 2300 AC 10/01 PO 0826 Dextrose/Sodium 1,000 ML Q13H 10/01 0145 AC 10/01 Chloride IV 0154 Guaifenesin 600 MG Q12 09/24 2100 AC 10/01 PO 0825 Heparin Sodium 5,000 UNIT Q8 09/23 2300 AC 10/01 (Porcine) SC 0608 Insulin Aspart 0 AT BEDTIME 09/24 2100 AC SC Insulin Aspart 0 TIDAC 09/24 0800 AC 10/01 SC 0828 Magnesium Oxide 400 MG ONE ONE 10/01 0130 CAN PO 10/01 0131 Magnesium Sulfate 1 GM ONCE ONE 10/01 0145 DC 10/01 Dextrose/Water 100 ML IV 10/01 0544 0154 Metoclopramide HCl 10 MG .STK-MED ONE 09/30 1430 DC IM 09/30 1431 Metoprolol Succinate 50 MG DAILY 09/25 09 AC 10/01 PO 0826 Ondansetron HCl 4 MG .STK-MED ONE 09/30 1428 DC IM 09/30 1429 Potassium Chloride 40 MEQ ONCE ONE 09/30 1315 DC 09/30 PO 09/30 1316 1342 Pravastatin Sodium 40 MG 1700 09/24 1700 AC 09/30 PO 1744 Pyridostigmine 60 MG TID 09/29 1530 AC 10/01 [place] PO 0827 Ropinirole HCl 1 MG BID 09/23 2330 AC 10/01 PO 0826 Sodium Chloride 1,000 ML .[id number] 09/30 2045 DC IV 10/01 1004 Tiotropium [place] 1 PUF DAILY 09/24 09 AC 10/01 INH 0827 Trimethobenzamide HCl 200 MG ONCE ONE 09/30 1445 DC 09/30 IM 09/30 1446 1446 Venlafaxine HCl 75 MG DAILY 09/24 09 AC 10/01 PO 0825 Results Last 48 Hrs of Labs/Mics: Laboratory Tests 09/30/17 2030: Anion Gap 14, Estimated GFR 31 L, BUN/Creatinine Ratio 16.9, Magnesium 1.8, Troponin I 0.02 09/30/17 0624: Anion Gap 11, Estimated GFR 31 L, BUN/Creatinine Ratio 15.0, Magnesium 1.7 Assessment/Plan Assessment/Plan 1. Renal insufficiency, chronic 2. Syncope; recurrent 3. History of nonobstructive carotid disease 4. Known right bundle branch block 5. COPD 6. History of non-small cell lung cancer 7. History of hypertension/hyperlipidemia 8. History of mild cardiomyopathy in the past with possible infarct versus artifact on nuclear stress test 9. Parkinson's disease 10. AV block and sick sinus syndrome Arrhythmia: The patient has a known underlying right bundle branch block pattern and has had significant bradycardia as well as AV block with a 6 second pause noted. Although this was in the setting of nausea, the arrhythmia persisted, and her symptoms of lightheadedness were reminiscent of her prior syncope and presyncope. As her orthostatic blood pressures appear to have been improved on her current medication regimen, I believe a pacemaker implantation with likely allow us to further titrate her regimen as well as prevent a further arrhythmic etiology to her syncope. We will keep the patient n.p.o. after midnight tonight and expectation for a pacemaker implantation in the a.m. I have discussed this with patient. Orthostatic hypotension: Improved with her current medication regimen. We will continue to track. Further titration of her regimen including changing amlodipine may prove beneficial. Continue telemetry? Yes
[2017-10-01 14:23] VITALS: BP 144/72
--- NOTE | 2017-10-01 16:16 | PN- Thoracic Surgery ---
Surgical Brief Attending Note Brief Attending Note: Dual-chamber pacemaker planned for tomorrow
[2017-10-01 23:15] VITALS: BP 142/80
[2017-10-02 06:51] VITALS: BP 192/72
--- NOTE | 2017-10-02 07:09 | PN- Housestaff ---
Salena BENITEZ,[facility] 10/02/17 0709: Subjective Follow-up For: Syncope Tele-Events Since Last Visit: NSR 102-117. BBB. PAC Subjective: Ms Keith was seen and examined this morning. She is resting comfortably in bed. States overnight she got some rest. Continues to endorse nausea. Is alert and oriented 3. Denies any fever, chills, nausea, vomiting. Denies any lightheadedness or chest pain or chest discomfort. Currently awaiting for pacemaker placement scheduled for later today. She does endorse some anxiety and is requests to be given something for this. Review of Systems Constitutional: Reports: see HPI. Objective Last 24 Hrs of Vital Signs/I&O Vital Signs Date Time Temp Pulse Resp B/P B/P Pulse O2 O2 Flow FiO2 Mean Ox Delivery Rate 10/02 0651 98.7 113 20 192/72 96 Room Air 10/02 0616 111 192/72 10/01 2315 98.9 98 18 142/80 97 Room Air 10/01 1423 98.8 82 20 144/72 96 Room Air Intake & Output 10/02 1600 10/02 0800 10/02 0000 Intake Total 50 50 Output Total Balance 50 50 Intake, Oral 50 50 Number 1 Bowel Movements Patient 71.696 kg Weight Weight Bed scale Measurement Method Physical Exam General Appearance: Alert, Oriented X3, Cooperative HEENT: Mucous Membr. moist/pink Cardiovascular: Normal S1, Normal S2, Tachycardia Lungs: Clear to Auscultation Abdomen: Normal Bowel Sounds, Soft, No Tenderness Neurological: Normal Gait, Normal Speech Extremities: No Edema Current Medications: Current Medications Sig/Liliya Start time Last Medication Dose Route Stop Time Status Admin Acetaminophen 650 MG Q6P PRN 09/23 2230 AC PO Acetaminophen 1,000 MG Q6P PRN 09/23 2230 AC IV Albuterol Sulfate 2 PUF Q4-6 PRN PRN 09/23 2245 AC INH Alprazolam 0.5 MG ONCE PRN 10/02 0845 AC PO 10/02 1645 Amlodipine Besylate 10 MG DAILY 09/27 09 DC 10/02 PO 0616 Buspirone HCl 30 MG QPM 09/24 2100 AC 10/01 PO 2202 Buspirone HCl 15 MG QAM 09/24 09 AC 10/01 PO 0825 Carbidopa/Levodopa 1 TAB TID 09/23 2300 AC 10/01 PO 2202 Dextrose/Sodium 1,000 ML Q13H 10/01 0145 DC 10/01 Chloride IV 0154 Guaifenesin 600 MG Q12 09/24 2100 AC 10/01 PO 2202 Heparin Sodium 5,000 UNIT Q8 09/23 2300 DC 10/01 (Porcine) SC 10/02 0000 2110 Insulin Aspart 0 AT BEDTIME 09/24 2100 DC SC Insulin Aspart 0 TIDAC 09/24 0800 AC 10/01 SC 1715 Insulin Human Regular 0 Q6 10/02 1200 AC SC Metoprolol Succinate 50 MG DAILY 09/25 0900 DC 10/01 PO 0826 Pravastatin Sodium 40 MG 1700 09/24 1700 AC 10/01 PO 1715 Pyridostigmine 60 MG TID 09/29 1530 AC 10/01 [place] PO 2202 Ropinirole HCl 1 MG BID 09/23 2330 AC 10/01 PO 2202 Tiotropium [place] 1 PUF DAILY 09/24 0900 AC 10/01 INH 0827 Trimethobenzamide HCl 200 MG ONCE ONE 10/01 1700 DC 10/01 IM 10/01 1701 1714 Venlafaxine HCl 75 MG DAILY 09/24 0900 AC 10/01 PO 0825 Last 24 Hrs of Lab/Elias Results Last 24 Hrs of Labs/Mics: Laboratory Tests 10/02/17 0733: Sodium Pending, Potassium Pending, Chloride Pending, Carbon Dioxide Pending, Anion Gap Pending, BUN Pending, Creatinine Pending, BUN/Creatinine Ratio Pending , CBC w Diff Pending, WBC Pending, RBC Pending, Hgb Pending, Hct Pending, MCV Pending, MCH Pending, MCHC Pending, RDW Pending, Plt Count Pending, MPV Pending Assessment/Plan Assessment: DRAFT Ms Keith is a 77-year-old female with past medical history of COPD not on oxygen, mild cardiomyopathy, venous insufficiency, right bundle branch block, ex -smoker (quit 8yrs) non-small cell lung cancer status post chemotherapy/ radiation 8 yrs ago, nonobstructive carotid stenosis, hypertension, hyperlipidemia, was brought in to the emergency after her recent discharge from the same day, after working up for syncopal episodes. Of note, during her recent hospital admission, she did not have any presyncope or syncopal episodes. Her cardiac examination, and telemetry was uneventful, and she did not have any focal neurologic deficits either. Patient is currently admitted in the telemetry be floor for the management of following issues: #Syncope/orthostatic hypotension No focal neurologic deficit, no arrhythmias, no complaints of dizziness while she is an inpatient so far. She has been evaluated by cardiology as well as neurology for the same. However orthostatic hypotension has been positive * Will check her orthostat BP again * Patient scheduled to undergo Pacemaker placement today. * She has been refusing home visiting nurse, even if she will come in only to take her blood pressures or check on her symptoms. * She has been taught measures to mitigate orthostatic hypotension. Patient understands it. #HTN/ Possible renal artery stenosis * BB was held yesterday due to 6 second pause. Will stop CCB as well. Can consider resuming medications once back unless contra indicated by Thoracis surgery. * Her ARB has been stopped given her CHAS on CKD. * She will need further follow up for renal artery status. * Hydralazine PRN for hypertension #Leukocytosis * Attributed to stress demargination. If spikes temperature, may consider CT abdomen and Pelvis to rule out acute pathology. * Repeat CBC in am. #Systolic Heart Failure Last Echo showed EF of 50%. No need to repeat echo. Continue, home medications. #CKD Stage 3B Renal status has slightly deteriorated in this month. Most likely this is her baseline. Creatinine today is 1.6. She will need a close follow up with inspector crystal on discharge. #Histoy of DM. FS, 119,139,141 Will cover with sliding scale when back from Pacemaker placement. Diet: CC3 diet DVT ppx: SQ Heparin Code status: Full code Problem List: 1. Orthostatic hypotension 2. Bradycardia 3. Acute on chronic heart failure Pain Ratin Pain Location: No Pain Pain Goal: Remain pain free Pain Plan: Tylenol PRN Tomorrow's Labs & Rationales: CBC: Monitor WBC in the setting of acute illness BEP: Monitor Renal Functions Андрей Ta 10/02/17 1033: Attending MD Review Statement Attending Statement Attending MD Statement: examined this patient, discuss w/resident/PA/BUCKET CHUCKER, agreed w/resident/PA/BUCKET CHUCKER, discussed with family, reviewed EMR data (avail), discussed with nursing, discussed with case mgmt, reviewed images, amended to note Attending Assessment/Plan: Patient planned for pacemaker this afternoon. Patient appears to be anxious and had nausea episode. C dif negative. leukocytosis could be stress inudced. Afebrile with no localising complaints. Her BP is slightly on higher side which needs iv hydralazine and monitor bp. Her metorpolol has been on hold for bradycardia and AV block. Cardiology and CTVS closely following the patient.
[2017-10-02 08:22] LABS: ABSOLUTE BASOPHIL COUNT 0 /CUMM (0.0-0.2); ABSOLUTE EOSINOPHIL COUNT 0 /CUMM (0.0-0.7); ABSOLUTE MONOCYTE COUNT 0.4 /CUMM (0.10-0.60); BASOPHIL % 0 % (0.0-2.0); EOSINOPHIL % 0 % (0-5); MEAN PLATELET VOLUME 6.7 FL (7.4-10.4)
[2017-10-02 08:51] LABS: ABSOLUTE LYMPH COUNT 0.8 /CUMM (1.2-3.4); HEMATOCRIT 42.6 % (37-47); MEAN CORPUSCULAR HGB 28.1 PG (27.0-31.0); MEAN CORPUSCULAR HGB CONC 32.5 G/DL (33.0-37.0); MEAN CORPUSCULAR VOLUME 86.5 FL (81.0-99.0); PLATELET COUNT 300 /CUMM (130-400); RED BLOOD CELL CT 4.93 /CUMM (4.20-5.40)
[2017-10-02 08:52] LABS: WHITE BLOOD CELL COUNT 21.2 /CUMM (4.8-10.8)
--- NOTE | 2017-10-02 09:08 | PN- Cardiology ---
Subjective Subjective: Patient had a 6 second pause yesterday afternoon and further bradycardia while sleeping at night. She is scheduled for a permanent pacemaker this morning Objective Vital Signs and I&Os Vital Signs Date Time Temp Pulse Resp B/P B/P Pulse O2 O2 Flow FiO2 Mean Ox Delivery Rate 10/02 0651 98.7 113 20 192/72 96 Room Air 10/02 0616 111 192/72 / 2315 98.9 98 18 142/80 97 Room Air 10/01 1423 98.8 82 20 144/72 96 Room Air Intake & Output 10/02 1600 10/02 0800 10/02 0000 10/01 1600 10/01 0810/01 0000 Intake Total 50 50 700 420 120 Output Total 650 Balance 50 50 50 420 120 Intake, IV 300 300 Intake, Oral 50 50 400 120 120 Number 1 1 1 Bowel Movements Output, Urine 650 Patient 158 lb 154 lb Weight Weight Bed scale Measurement Method Physical Exam: Physical exam she appeared comfortable. Denies any symptoms of chest pain syncope or presyncope. Head normocephalic atraumatic Eyes sclera anicteric conjunctiva showed no pallor extraocular muscles were normal Neck no jugular venous distention no thyroid masses no palpable nodes no bruits Chest lungs were clear bilaterally Heart regular rhythm with a 1/6 systolic murmur Abdomen soft no organomegaly bowel sounds normal Extremities no clubbing cyanosis or edema Neurological no gross motor or sensory deficits Current Medications: Current Medications Sig/Liliya Start time Last Medication Dose Route Stop Time Status Admin Acetaminophen 650 MG Q6P PRN 09/23 2230 AC PO Acetaminophen 1,000 MG Q6P PRN 09/23 2230 AC IV Albuterol Sulfate 2 PUF Q4-6 PRN PRN 09/23 2245 AC INH Alprazolam 0.5 MG ONCE PRN 10/02 0845 AC PO 10/02 1645 Amlodipine Besylate 10 MG DAILY 09/27 09 DC 10/02 PO 0616 Buspirone HCl 30 MG QPM 09/24 2100 AC 10/01 PO 220 Buspirone HCl 15 MG QAM 09/24 09 AC 10/01 PO 0825 Carbidopa/Levodopa 1 TAB TID 09/23 2300 AC 10/01 PO 2202 Dextrose/Sodium 1,000 ML Q13H 10/01 0145 DC 10/01 Chloride IV 0154 Guaifenesin 600 MG Q12 09/24 2099 AC 10/01 PO 2202 Heparin Sodium 5,000 UNIT Q8 09/23 2300 DC 10/01 (Porcine) SC 10/02 0000 2110 Insulin Aspart 0 AT BEDTIME 09/24 2100 DC SC Insulin Aspart 0 TIDAC 09/24 0800 AC 10/01 SC 1715 Insulin Human Regular 0 Q6 10/02 1200 AC SC Metoprolol Succinate 50 MG DAILY 09/25 0900 DC 10/01 PO 0826 Pravastatin Sodium 40 MG 1700 09/24 1700 AC 10/01 PO 1715 Pyridostigmine 60 MG TID 09/29 1530 AC 10/01 [place] PO 220 Ropinirole HCl 1 MG BID 09/23 2330 AC 10/01 PO 220 Tiotropium [place] 1 PUF DAILY 09/24 0900 AC 10/01 INH 0827 Trimethobenzamide HCl 200 MG ONCE ONE 10/01 1700 DC 10/01 IM 10/01 1701 1714 Venlafaxine HCl 75 MG DAILY 09/24 0900 AC 10/01 PO 0825 Results Last 48 Hrs of Labs/Mics: Laboratory Tests 10/02/17 0733: Anion Gap 17 H, Estimated GFR 29 L, BUN/Creatinine Ratio 21.8, CBC w Diff Pending, WBC Pending, RBC Pending, Hgb Pending, Hct Pending, MCV Pending, MCH Pending, MCHC Pending, RDW Pending, Plt Count Pending, MPV Pending, Gran % Pending, Lymphocytes % Pending, Monocytes % Pending, Eosinophils % Pending, Basophils % Pending, Absolute Granulocytes Pending, Absolute Lymphocytes Pending , Absolute Monocytes Pending, Absolute Eosinophils Pending, Absolute Basophils Pending 09/30/17 2030: Anion Gap 14, Estimated GFR 31 L, BUN/Creatinine Ratio 16.9, Magnesium 1.8, Troponin I 0.02 Microbiology 10/01 0155 STOOL: Clostridium difficile Toxin A & B - COMP Assessment/Plan Assessment/Plan 1. Renal insufficiency, chronic 2. Syncope; recurrent 3. History of nonobstructive carotid disease 4. Known right bundle branch block 5. COPD 6. History of non-small cell lung cancer 7. History of hypertension/hyperlipidemia 8. History of mild cardiomyopathy in the past with possible infarct versus artifact on nuclear stress test 9. Parkinson's disease 10. AV block and sick sinus syndrome Patient scheduled for permanent pacemaker implant today. For orthostatic hypotension probably related to Parkinson's disease I would suggest compression stockings. Further medication change can be discussed as an outpatient, including Northera. For the time being permanent pacemaker is indicated which would make adjustment of medications more flexible. Continue telemetry? Yes
[2017-10-02 09:28] LABS: GRANULOCYTE % 94.3 % (42.2-75.2)
--- NOTE | 2017-10-02 17:12 | Operative Report ---
Operative/Inv Procedure Report Surgery Date: 10/02/17 Name of Procedure: Dual-chamber MRI compatible pacemaker Pre-Operative Diagnosis: Sick sinus syndrome with symptomatic bradycardia and heart block Post-Operative Diagnosis: Same Estimated Blood Loss: less than 50ml Surgeon/Utility Worker: Dr. Corrigan Anesthesia: general endotracheal tube Operative/Procedure Note Note: After placement of monitoring lines and induction of general anesthesia patient' s left chest and shoulder were prepped and draped in sterile fashion. Incision was made in the deltopectoral groove and carried down to the prepectoralis fascia. There was a fairly good-sized cephalic vein encountered and it was encircled with silk ties and occluded proximally with surgical clips. Small venotomy was made and a guidewire was easily passed into the right atrium under fluoroscopic guidance. A Medtronic ventricular lead model #[id number] was then passed directly into the right atrium with no sheath guidance necessary. The lead was advanced to the pulmonary outflow tract. Of note because of the patient's previous cell lung cancer treatment there was a significant distortion of her normal anatomy. The lead was withdrawn into the right ventricular chamber and positioned at the apex. R waves were measured at 5.3 mV. The pacing threshold was 0.4 V with a current of 0.3 mA and impedance of 1316 ohms. Sheath dilator was then passed over the guidewire and a preformed ventricular lead Medtronic model #[id number] was then advanced to the right atrium and positioned in the right atrial appendage. P waves were measured 1.6 mV. The pacing threshold was 0.4 V with a current of 0.6 mA and impedance of 740 ohms. The leads were tied to the cephalic vein and secured to prepectoralis fascia with Ethibond sutures. Pacemaker pocket was made above the prepectoralis fascia. The leads were then connected to an MRI compatible dual-chamber pacemaker. The pacemaker pocket was irrigated with antibiotic irrigation. Hemostasis was achieved with electrocautery and surgical clips. The wound was closed in layers with deep Vicryl suture followed by running Vicryl subcuticular suture. The patient tolerated the procedure well and was brought to the recovery room awake and extubated in stable condition. CC: Cely BENITEZ,Андрей; Josep BENITEZ,Homero
--- NOTE | 2017-10-02 17:19 | Cons- Thoracic Surgery ---
General Information and HPI Consulting Request Date of Consult: 10/01/17 Requested By: Андрей Ta MD Reason for Consult: Symptomatic bradycardia with heart block and syncopal episode Source of Information: patient, old records, PCP Exam Limitations: no limitations History of Present Illness: Patient is a 77-year-old woman who is well known to me. I previously done biopsies and evaluation of her known right lung cancer treated with radiation therapy. She was admitted following a syncopal episode. During the course of her time in the hospital the monitor has shown episodes of sinus bradycardia with an associated 6 second pause. It was documented during those episodes that the patient had some degree of nausea along with presyncopal symptoms. Given this presentation and telemetry findings she is recommended for placement of a permanent dual-chamber pacemaker. Allergies/Medications Allergies: Coded Allergies: NO KNOWN ALLERGIES (10/20/13) Home Med List: Albuterol Sulfate (Proair Hfa) 90 MCG HFA.AER.AD 2 PUF INH Q4-6 PRN PRN SHORTNESS OF BREATH (Reported) Amlodipine Besylate (Norvasc) 10 MG TABLET 10 MG PO DAILY HTN . Buspirone HCl 15 MG TABLET 1 TAB PO QAM MENTAL HEALTH (Reported) Buspirone HCl 30 MG TABLET 1 TAB PO QPM MENTAL HEALTH (Reported) Carbidopa/Levodopa (Sinemet 25-100 MG Tablet) 25 MG-100 MG TABLET 1 TAB PO TID PARKINSONISM (Reported) Gabapentin (Neurontin) 100 MG CAPSULE 1 CAP PO TID . (Reported) Metformin HCl (Metformin HCl ER) 1,000 MG TAB.ER.24 1 TAB PO DAILY DM ( Reported) Metolazone 2.5 MG TABLET 1 TAB PO QFRIDAY . (Reported) Metoprolol Succinate 50 MG TAB.ER.24H 1 TAB PO DAILY HEART/BP (Reported) Pravastatin Sodium 40 MG TABLET 1 TAB PO DAILY HLD (Reported) Prochlorperazine Maleate 10 MG TABLET 1 TAB PO Q6 PRN NAUSEA/VOMITING ( Reported) Pyridostigmine [place] 60 MG TABLET 60 MG PO TID ORTHOSTATIC HYPOTENSION, OFFLBL . Ropinirole HCl 1 MG TABLET 1 TAB PO Q1400, 2100 MENTAL HEALTH (Reported) Tramadol HCl 50 MG TABLET 1 TAB PO TIDPRN PRN PAIN (Reported) Umeclidinium [place] (Incruse Ellipta) 62.5 MCG/ACTUATION BLST.W.DEV 1 PUFF INH DAILY COPD (Reported) Venlafaxine HCl (Venlafaxine HCl ER) 75 MG CAP.ER.24H 1 CAP PO DAILY MENTAL HEALTH (Reported) Current Medications: Current Medications Sig/Liliya Start time Last Medication Dose Route Stop Time Status Admin Acetaminophen 650 MG Q6P PRN 09/23 2230 AC PO Acetaminophen 1,000 MG Q6P PRN 09/23 2230 AC IV Albuterol Sulfate 2 PUF Q4-6 PRN PRN 09/23 2245 AC INH Alprazolam 0.5 MG ONCE PRN 10/02 0845 DC PO 10/02 1645 Amlodipine Besylate 10 MG DAILY 09/27 0900 DC 10/02 PO 0616 Buspirone HCl 30 MG QPM 09/24 2100 AC 10/01 PO 2202 Buspirone HCl 15 MG QAM 09/24 0900 AC 10/02 PO 0908 Carbidopa/Levodopa 1 TAB TID 09/23 2300 AC 10/02 PO 0908 Cefazolin Sodium 2 GM IQ8 10/03 0000 AC N/A 1 UNIT IV 10/03 0829 Fentanyl Citrate 100 MCG .STK-MED ONE 10/02 0719 DC IM 10/02 0720 Guaifenesin 600 MG Q12 09/24 2100 AC 10/02 PO 0908 Heparin Sodium 5,000 UNIT Q8 10/02 2200 AC (Porcine) SC Heparin Sodium 5,000 UNIT Q8 09/23 2300 DC 10/01 (Porcine) SC 10/02 0000 2110 Insulin Aspart 0 TIDAC 10/02 1700 AC SC Insulin Aspart 0 AT BEDTIME 09/24 2100 DC SC Insulin Aspart 0 TIDAC 09/24 0800 DC 10/01 SC 1715 Insulin Human Regular 0 Q6 10/02 1200 DC SC Midazolam HCl 2 MG .STK-MED ONE 10/02 0720 DC IM 10/02 0721 Oxycodone HCl 5 MG Q6P PRN 10/02 1700 AC PO Oxycodone HCl 10 MG Q6-PRN PRN 10/02 1700 AC PO Pravastatin Sodium 40 MG 1700 05/02 1700 AC 05 PO 1715 Pyridostigmine 60 MG TID 09/29 1530 AC 10/01 [place] PO 2202 Ropinirole HCl 1 MG BID 09/23 2330 AC 10/02 PO 0908 Tiotropium [place] 1 PUF DAILY 09/24 899 AC 10/02 INH 0910 Venlafaxine HCl 75 MG DAILY 09/24 899 AC 10/02 PO 907 Past History Medical History Blood Transfusion Hx: No Neurological: NONE EENT: NONE Cardiovascular: hypertension, hyperlipidemia, hypertension Respiratory: NONE Gastrointestinal: NONE Hepatic: NONE Renal: NONE Musculoskeletal: NONE Psychiatric: NONE Endocrine: borderline diabetes Surgical History Pertinent Surgical History: non-contributory Family History Relations & Conditions If Any: FATHER (cancer pancreas). Relation not specified for: FH: Alzheimers disease FH: bipolar disorder FH: cancer FH: heart attack FHx: stroke Hypertension Psychosocial History Services at Home: None Smoking Status: Former Smoker Review of Systems Review of Systems: Review of systems is notable for the syncopal episode which is not an isolated episode. He is also known for the presyncopal symptoms that accompanied the bradycardia which she said were similar to the healing she had before she passed out previously this was also associated with some nausea. She has had no chest pain and no fevers night sweats or chills. She has some baseline exertional dyspnea but that is recently unchanged. The rest of her 12 point review of systems is unremarkable. Exam & Diagnostic Data Vital Signs and I&O Vital Signs Date Time Temp Pulse Resp B/P B/P Pulse O2 O2 Flow FiO2 Mean Ox Delivery Rate 10/02 0651 98.7 113 20 192/72 96 Room Air 10/02 0616 111 192/72 10/01 2315 98.9 98 18 142/80 97 Room Air Intake & Output 10/02 1600 10/02 0810/02 0000 10/01 1600 10/01 0000 Intake Total 50 50 50 700 420 120 Output Total 200 650 Balance -150 50 50 50 420 120 Intake, IV 300 300 Intake, Oral 50 50 50 400 120 120 Number 1 1 1 Bowel Movements Output, Urine 200 650 Patient 158 lb 154 lb Weight Weight Bed scale Measurement Method Physical Exam: On physical examination she appears well. Her skin is warm and well perfused no suspicious lesions noted. The sclerae are anicteric and mucous membranes are moist. There is no cervical or subclavicular lymphadenopathy. She has a well- healed mediastinoscopy scar at the sternal notch. Her breath sounds are diminished on the right side and fairly coarse bilaterally. The cardiac exam shows a regular rhythm and rate no murmurs or sounds. The abdomen is soft and nontender with no masses. The periphery shows no cyanosis clubbing or edema. Her neurologic exam is grossly normal motor sensory function. Last 24 Hours of Labs: Laboratory Tests 10/02 0733 Chemistry Sodium (137 - 145 mmol/L) 140 Potassium (3.5 - 5.1 mmol/L) 4.0 Chloride (98 - 107 mmol/L) 99 Carbon Dioxide (22 - 30 mmol/L) 24 Anion Gap (5 - 16) 17 H BUN (7 - 17 mg/dL) 37 H Creatinine (0.5 - 1.0 mg/dL) 1.7 H Estimated GFR (>60 ml/min) 29 L BUN/Creatinine Ratio (7 - 25 %) 21.8 Hematology CBC w Diff NO MAN DIFF REQ WBC (4.8 - 10.8 /CUMM) 21.2 H RBC (4.20 - 5.40 /CUMM) 4.93 Hgb (12.0 - 16.0 G/DL) 13.8 Hct (37 - 47 %) 42.6 MCV (81.0 - 99.0 FL) 86.5 MCH (27.0 - 31.0 PG) 28.1 MCHC (33.0 - 37.0 G/DL) 32.5 L RDW (11.5 - 14.5 %) 14.0 Plt Count (130 - 400 /CUMM) 300 MPV (7.4 - 10.4 FL) 6.7 L Gran % (42.2 - 75.2 %) 94.3 H Lymphocytes % (20.5 - 51.1 %) 3.7 L Monocytes % (1.7 - 9.3 %) 2.0 Eosinophils % (0 - 5 %) 0 Basophils % (0.0 - 2.0 %) 0 Absolute Granulocytes (1.4 - 6.5 /CUMM) 20.0 H Absolute Lymphocytes (1.2 - 3.4 /CUMM) 0.8 L Absolute Monocytes (0.10 - 0.60 /CUMM) 0.4 Absolute Eosinophils (0.0 - 0.7 /CUMM) 0 Absolute Basophils (0.0 - 0.2 /CUMM) 0 Assessment/Plan Assessment/Plan 77-year-old with symptomatic bradycardia and pauses with associated intermittent second-degree heart block on the heart monitor. I think a permanent pacemaker is indicated given her clinical situation and also because of the need for some treatment of some orthostatic hypotension. I explained the risks and benefits of pacemaker placement. I have reviewed her anatomy on her CT scan. Given the possibility of a pneumothorax during placement of a pacemaker it would be preferable to go on the left side as she has very little pulmonary function on that lung. However I am concerned that there is a significant exaggeration of the venous anatomy in that hemithorax and it might be very difficult if not impossible to negotiate the turns of the subclavian and innominate veins. There is a significant rotation of the heart but the atrial and ventricular anatomy is on the right side appear normal. I think it is best to approach her from a left side as usual as I think given the exaggeration of her anatomy will be easier to get the leads to land in a secure position from that side. I explained all this to her and she understands and agrees. We will proceed on October 02 with placement of an MRI compatible dual- chamber pacemaker. Consult Acknowledgment - Thank you for your consult request.
--- NOTE | 2017-10-02 17:48 | RADIOLOGY REPORT ---
EXAMINATION: XR PORTABLE CHEST CLINICAL INFORMATION: Pacemaker implantation COMPARISON: Prior chest x-ray 09/25/2017 TECHNIQUE: Portable frontal view of the chest was obtained. FINDINGS: A dual-lead pacer is noted with leads in the region of the right atrium and right ventricle. Leads intact. No pneumothorax Persistent opacification of at least the lower half to two thirds of the right hemithorax unchanged. This obscures evaluation of the cardiac silhouette and pulmonary vascularity. The pulmonary vascularity appears normal on the left. Left lung remains clear. IMPRESSION: Dual-lead pacer noted with leads noted as above. No pneumothorax. Persistent opacification of the right hemithorax overall unchanged.
[2017-10-02 18:47] VITALS: BP 188/92
--- NOTE | 2017-10-02 19:10 | RADIOLOGY REPORT ---
EXAMINATION:\H\ \N\C-arm imaging chest. CLINICAL INFORMATION: Pacemaker insertion COMPARISON: Chest x-ray 09/25/2017 TECHNIQUE: C-arm imaging. Dose: 5.39 mGym2 Number of images: 3 FINDINGS: 3 spot views were obtained over the central mediastinum showing placement of pacemaker leads in the right atrium and right ventricle. IMPRESSION: Pacemaker insertion.
[2017-10-02 22:17] VITALS: BP 140/90
[2017-10-03 07:25] VITALS: BP 128/90
[2017-10-03 08:01] LABS: ABSOLUTE BASOPHIL COUNT 0 /CUMM (0.0-0.2); ABSOLUTE EOSINOPHIL COUNT 0 /CUMM (0.0-0.7); ABSOLUTE GRANULOCYTE CT 22.3 /CUMM (1.4-6.5); ABSOLUTE LYMPH COUNT 0.7 /CUMM (1.2-3.4); ABSOLUTE MONOCYTE COUNT 0.6 /CUMM (0.10-0.60); BASOPHIL % 0 % (0.0-2.0); EOSINOPHIL % 0 % (0-5); HEMATOCRIT 39.4 % (37-47); MEAN CORPUSCULAR HGB 28.6 PG (27.0-31.0); MEAN CORPUSCULAR HGB CONC 33.3 G/DL (33.0-37.0); MEAN CORPUSCULAR VOLUME 85.7 FL (81.0-99.0); MEAN PLATELET VOLUME 6.8 FL (7.4-10.4); WHITE BLOOD CELL COUNT 23.5 /CUMM (4.8-10.8)
--- NOTE | 2017-10-03 08:21 | PN- Housestaff ---
Salena BENITEZ,[facility], [place] 10/03/17 0820: Subjective Follow-up For: Hypotension and bradycardia. Tele-Events Since Last Visit: ST, NSR 107-114 Subjective: Ms Keith was seen and examined this morning. Resting comfortably in bed. States that she feels better and had no acute events overnight. She denies any fever, chills, nausea, vomiting. She denies any lightheadedness or chest pain, chest pressure or chest discomfort. She's been tolerating by mouth intake well no endorses occasional abdominal pain. Review of Systems Constitutional: Reports: see HPI. Objective Last 24 Hrs of Vital Signs/I&O Vital Signs Date Time Temp Pulse Resp B/P B/P Pulse O2 O2 Flow FiO2 Mean Ox Delivery Rate 10/03 1447 98.1 115 20 198/90 98 Room Air 10/03 1426 198/100 10/03 1426 114 198/100 10/03 0725 98.5 112 18 128/90 97 Room Air 10/02 2217 98.2 110 18 140/90 96 Room Air 10/02 1847 98.4 107 18 188/92 96 Room Air Room Air Intake & Output 10/03 1600 10/03 0800 10/03 0000 Intake Total 50 Output Total 400 Balance -350 Intake, IV 50 Number 1 Bowel Movements Output, Urine 400 Patient 70.562 kg Weight Weight Bed scale Measurement Method Physical Exam General Appearance: Alert, Oriented X3, Cooperative HEENT: Mucous Membr. moist/pink Cardiovascular: Regular Rate, Normal S1, Normal S2 Lungs: Clear to Auscultation Abdomen: Normal Bowel Sounds, Soft, No Masses Neurological: Normal Speech Extremities: No Clubbing, No Cyanosis, No Edema Vascular: Normal Pulses Current Medications: Current Medications Sig/Liliya Start time Last Medication Dose Route Stop Time Status Admin Acetaminophen 650 MG Q6P PRN 09/23 2230 AC PO Acetaminophen 1,000 MG Q6P PRN 09/23 2230 AC IV Albuterol Sulfate 2 PUF Q4-6 PRN PRN 09/23 2245 AC INH Alprazolam 0.5 MG ONCE PRN 10/02 0845 DC PO 10/02 1645 Amlodipine Besylate 10 MG DAILY 10/04 0900 AC PO Amlodipine Besylate 10 MG ONCE ONE 10/03 1430 DC 10/03 PO 10/03 1431 1426 Amlodipine Besylate 10 MG DAILY 10/03 1411 DC PO Buspirone HCl 30 MG QPM 09/24 2100 AC 10/02 PO 2142 Buspirone HCl 15 MG QAM 09/24 0900 AC 10/03 PO 0820 Carbidopa/Levodopa 1 TAB TID 09/23 2300 AC 10/03 PO 0820 Cefazolin Sodium 2 GM IQ8 10/03 0000 DC 10/03 N/A 1 UNIT IV 10/03 0829 0820 Guaifenesin 600 MG Q12 09/24 2100 AC 10/03 PO 0821 Heparin Sodium 5,000 UNIT Q8 10/02 2200 AC 10/03 (Porcine) SC 0536 Insulin Aspart 0 TIDAC 10/02 1700 AC SC Insulin Human Regular 0 Q6 10/02 1200 DC SC Labetalol HCl 5 MG ONCE ONE 10/03 1415 DC 10/03 IV 10/03 141 1426 Ondansetron HCl 4 MG ONCE ONE 10/03 0100 DC 10/03 IV 10/03 0101 0107 Oxycodone HCl 5 MG Q6P PRN 10/02 1700 AC PO Oxycodone HCl 10 MG Q6-PRN PRN 10/02 1700 AC PO Pravastatin Sodium 40 MG 1700 09/24 1700 AC 10/02 PO 2143 Pyridostigmine 60 MG TID 09/29 1530 DC 10/03 [place] PO 0821 Ropinirole HCl 1 MG BID 09/23 2330 AC 10/03 PO 0820 Tiotropium [place] 1 PUF DAILY 09/24 09 AC 10/03 INH 0821 Trimethobenzamide HCl 200 MG ONCE ONE 10/03 1215 DC 10/03 IM 10/03 1216 1216 Venlafaxine HCl 75 MG DAILY 09/24 0900 AC 10/03 PO 0820 Last 24 Hrs of Lab/Elias Results Last 24 Hrs of Labs/Mics: Laboratory Tests 10/03/17 0645: Anion Gap 13, Estimated GFR 37 L, BUN/Creatinine Ratio 28.6 H, CBC w Diff NO MAN DIFF REQ, RBC 4.60, MCV 85.7, MCH 28.6, MCHC 33.3, RDW 14.0, MPV 6.8 L, Gran % 94.5 H, Lymphocytes % 2.8 L, Monocytes % 2.7, Eosinophils % 0, Basophils % 0, Absolute Granulocytes 22.3 H, Absolute Lymphocytes 0.7 L, Absolute Monocytes 0.6, Absolute Eosinophils 0, Absolute Basophils 0 Assessment/Plan Assessment: Ms Keith is a 77-year-old female with past medical history of COPD not on oxygen, mild cardiomyopathy, venous insufficiency, right bundle branch block, ex -smoker (quit 8yrs) non-small cell lung cancer status post chemotherapy/ radiation 8 yrs ago, nonobstructive carotid stenosis, hypertension, hyperlipidemia, was brought in to the emergency after her recent discharge from the same day, after working up for syncopal episodes. Of note, during her recent hospital admission, she did not have any presyncope or syncopal episodes. Her cardiac examination, and telemetry was uneventful, and she did not have any focal neurologic deficits either. Patient is currently admitted in the telemetry be floor for the management of following issues: #Syncope/orthostatic hypotension No focal neurologic deficit, no arrhythmias, no complaints of dizziness while she is an inpatient so far. She has been evaluated by cardiology as well as neurology for the same. However orthostatic hypotension has been positive * Will check her orthostat BP again * PM Placed 10/02/2017 * She has been refusing home visiting nurse, even if she will come in only to take her blood pressures or check on her symptoms. * She has been taught measures to mitigate orthostatic hypotension. Patient understands it. #HTN/ Possible renal artery stenosis * Resumed BB and CCB * Her ARB has been stopped given her CHAS on CKD. * She will need further follow up for renal artery status. * Hydralazine PRN for hypertension #Leukocytosis * Attributed to stress demargination. If spikes temperature, may consider CT abdomen and Pelvis to rule out acute pathology. * CT abdomen and Pelvis done this afternoon. Will continue to monitor. #Systolic Heart Failure Last Echo showed EF of 50%. No need to repeat echo. Continue, home medications. #CKD Stage 3B Renal status has slightly deteriorated in this month. Most likely this is her baseline. Creatinine today is 1.4. She will need a close follow up with embedded software engineer on discharge. #Histoy of DM. FS, 127, 166 Continue Novolog SS Diet: CC3 diet DVT ppx: SQ Heparin Code status: Full code Problem List: 1. Orthostatic hypotension 2. Pacemaker Pain Ratin Pain Location: intermittent Abdominal pain Pain Goal: Remain pain free Pain Plan: Tylenol Tomorrow's Labs & Rationales: CBC: monitor WBC in the setting of Leukocytosis BEP: monitor Electrolytes for hyponatremia Андрей Ta 10/03/17 1010: Attending MD Review Statement Attending Statement Attending MD Statement: examined this patient, discuss w/resident/PA/PEDIATRIC ASSOCIATE, agreed w/resident/PA/PEDIATRIC ASSOCIATE, discussed with family, reviewed EMR data (avail), discussed with nursing, discussed with case mgmt, reviewed images, amended to note Attending Assessment/Plan: Patient s/p pacemaker on oct 02 2017 for recurrent syncope and bradycardia with SSS and AV robbie block with 6 sec pause. WBC stress induced, no fever. Patient still c/o nasuea , would dc pyridostigmine for now. Monitor orthostats and consider o/p f/u closely with cardiology if ok with discharge from cardiology and [facility] perspective. consider o/p f/u closely with cardiology if ok with discharge from cardiology and [facility] perspective.
[2017-10-03 08:56] LABS: GRANULOCYTE % 94.5 % (42.2-75.2); PLATELET COUNT 243 /CUMM (130-400)
--- NOTE | 2017-10-03 09:11 | PN- Cardiology ---
Subjective Subjective: The patient is awake, alert The patient is status post pacemaker implantation ([employer]tr[employer], postoperative day 1) Continues to have nausea; however, without further bradycardic events (paced) The events of the last 24 hours as well as telemetry were reviewed. Review of Systems: The review of systems is negative for chest pains, palpitations nor lightheadedness. The remainder of the 14 point review of systems is noncontributory with the exception of above. Objective Vital Signs and I&Os Vital Signs Date Time Temp Pulse Resp B/P B/P Pulse O2 O2 Flow FiO2 Mean Ox Delivery Rate 10/03 0725 98.5 112 18 128/90 97 Room Air 10/02 2217 98.2 110 18 140/90 96 Room Air 10/02 1847 98.4 107 18 188/92 96 Room Air Room Air Intake & Output 10/03 0810/03 0000 10/02 1600 10/02 0800 10/02 0000 Intake Total 50 50 50 50 Output Total 400 200 Balance -350 -150 50 50 Intake, IV 50 Intake, Oral 50 50 50 Number 1 1 Bowel Movements Output, Urine 400 200 Patient 156 lb 158 lb Weight Weight Bed scale Bed scale Measurement Method Physical Exam: General: Nontoxic, no apparent distress. HEENT: Sclera and conjunctiva within normal limits, without xanthelasmas. Neck: Carotids 2+ without bruits. Respiratory: Clear to auscultation, air movement is good, without accessory respiratory muscle use. Heart: Regular rate and rhythm, without murmurs, without JVD. Abdomen: Soft, nontender, no masses, normoactive bowel sounds. Extremities: Without clubbing, cyanosis, without edema. Neuro: Nonfocal exam, strength, 5 out of 5 Skin: Within normal limits without lesions. Psych: Mood and affect: Normal Current Medications: Current Medications Sig/Liliya Start time Last Medication Dose Route Stop Time Status Admin Acetaminophen 650 MG Q6P PRN 09/23 2230 AC PO Acetaminophen 1,000 MG Q6P PRN 09/23 2230 AC IV Albuterol Sulfate 2 PUF Q4-6 PRN PRN 09/23 2245 AC INH Alprazolam 0.5 MG ONCE PRN 10/02 0845 DC PO 10/02 1645 Buspirone HCl 30 MG QPM 09/24 2100 AC 10/02 PO 2142 Buspirone HCl 15 MG QAM 09/24 0900 AC 10/03 PO 0820 Carbidopa/Levodopa 1 TAB TID 09/23 2300 AC 10/03 PO 0820 Cefazolin Sodium 2 GM IQ8 10/03 0000 DC 10/03 N/A 1 UNIT IV 10/03 0829 0820 Guaifenesin 600 MG Q12 09/24 2100 AC 10/03 PO 0821 Heparin Sodium 5,000 UNIT Q8 10/02 2200 AC 10/03 (Porcine) SC 0536 Insulin Aspart 0 TIDAC 10/02 1700 AC SC Insulin Aspart 0 TIDAC 09/24 0800 DC 10/01 SC 1715 Insulin Human Regular 0 Q6 10/02 1200 DC SC Ondansetron HCl 4 MG ONCE ONE 10/03 010 DC 10/03 IV 10/03 010 0107 Oxycodone HCl 5 MG Q6P PRN 10/02 1700 AC PO Oxycodone HCl 10 MG Q6-PRN PRN 10/02 1700 AC PO Pravastatin Sodium 40 MG 1700 09/24 1700 AC 10/02 PO 2143 Pyridostigmine 60 MG TID 09/29 1530 AC 10/03 [place] PO 0821 Ropinirole HCl 1 MG BID 09/23 2330 AC 10/03 PO 0820 Tiotropium [place] 1 PUF DAILY 09/24 09 AC 10/03 INH 0821 Venlafaxine HCl 75 MG DAILY 09/24 0900 AC 10/03 PO 0820 Results Last 48 Hrs of Labs/Mics: Laboratory Tests 10/03/17 0645: Anion Gap 13, Estimated GFR 37 L, BUN/Creatinine Ratio 28.6 H, CBC w Diff NO MAN DIFF REQ, RBC 4.60, MCV 85.7, MCH 28.6, MCHC 33.3, RDW 14.0, MPV 6.8 L, Gran % 94.5 H, Lymphocytes % 2.8 L, Monocytes % 2.7, Eosinophils % 0, Basophils % 0, Absolute Granulocytes 22.3 H, Absolute Lymphocytes 0.7 L, Absolute Monocytes 0.6, Absolute Eosinophils 0, Absolute Basophils 0 10/02/17 0733: Anion Gap 17 H, Estimated GFR 29 L, BUN/Creatinine Ratio 21.8, CBC w Diff NO MAN DIFF REQ, RBC 4.93, MCV 86.5, MCH 28.1, MCHC 32.5 L, RDW 14.0, MPV 6.7 L, Gran % 94.3 H, Lymphocytes % 3.7 L, Monocytes % 2.0, Eosinophils % 0, Basophils % 0, Absolute Granulocytes 20.0 H, Absolute Lymphocytes 0.8 L, Absolute Monocytes 0.4, Absolute Eosinophils 0, Absolute Basophils 0 Assessment/Plan Assessment/Plan 1. Renal insufficiency, chronic 2. Syncope; recurrent 3. History of nonobstructive carotid disease 4. Known right bundle branch block 5. COPD 6. History of non-small cell lung cancer 7. History of hypertension/hyperlipidemia 8. History of mild cardiomyopathy in the past with possible infarct versus artifact on nuclear stress test 9. Parkinson's disease 10. AV block and sick sinus syndrome 11. Orthostatic hypotension The patient is status post dual-chamber pacemaker implantation ([employer]tr[employer]) and is overall doing well without further significant arrhythmia. She remains having significant nausea. This may be medication related including her regimen of Mestinon which is present to treat orthostatic hypotension. At this time, we may consider discontinuance of the same and recheck orthostatic blood pressures. Aggressive use of compression stockings should be maintained. If no further lightheadedness is noted following resolution of nausea, we may consider discharge to home. Continue telemetry? No
[2017-10-03 14:47] VITALS: BP 198/90
[2017-10-03 16:00] VITALS: BP 150/86
--- NOTE | 2017-10-03 16:08 | CT SCAN REPORT ---
EXAMINATION: CT ABDOMEN AND PELVIS WITHOUT CONTRAST CLINICAL INFORMATION: 77 year old female presented with nausea, abdominal tenderness at left lower quadrant and leukocytosis. History of known lung cancer. Right mainstem bronchus stenosis. COMPARISON: CT of the abdomen and pelvis done on 09/18/2017. CT of the chest done on 02/25/2017. TECHNIQUE: Multidetector volumetric imaging was performed from the superior aspect of the liver through the pubic symphysis. Sagittal and coronal reformatted images were obtained on the technologist's workstation. DLP: 560.61 mGy-cm FINDINGS: LUNG BASES: There is a persistent loculated right-sided pleural effusion present with underlying chronic volume loss in the form of airspace opacification and underlying bronchiectasis. There is right-sided mediastinal shift noted. The visualized part of the mediastinum shows significant atherosclerotic disease including coronary arterial calcifications, unchanged. The appearance is stable since 02/25/2017. LIVER, GALLBLADDER, AND BILIARY TREE: The liver is normal in size, shape, and attenuation. No focal hepatic lesion or biliary ductal dilatation is present. The gallbladder is unremarkable with no evidence of radiopaque gallstones, gallbladder wall thickening, or obvious pericholecystic inflammatory changes. PANCREAS: Unremarkable. SPLEEN: Unremarkable. ADRENAL GLANDS: Unremarkable. KIDNEYS AND URETERS: The left kidney is atrophied, unchanged. The right kidney appears unremarkable. BLADDER: Suboptimally distended, grossly appeared unremarkable. GASTROINTESTINAL TRACT: Colonic diverticulosis-related changes are noted within the large bowel. The appendix is visualized, appeared unremarkable. Interval development of multiple distal abnormal-appearing ileal loops identified including involvement of the terminal ileum. Long segment circumferential thickening of the distal small bowel loops is seen. The adjacent part of the small bowel mesentery shows nonspecific haziness. There is no evidence of any pneumatosis present. There is no mesenteric or portal venous gas identified. There is no free intraperitoneal air noted. The findings are nonspecific, may represent changes secondary to underlying infection, inflammation, and/or ischemia. ABDOMINAL WALL: Soft tissue density is noted within the left lower anterior abdominal wall, may represent prominent vessels versus evolving hematoma. A few scattered similar-appearing nodules are also noted within the right lower anterior abdominal wall. LYMPH NODES: No pathologically enlarged retroperitoneal, mesenteric, pelvic and/or inguinal, groin lymphadenopathy present. VASCULAR: Diffuse atherosclerotic disease is noted within the aorta and its branches. There is no focal aneurysm present. No significant change. PELVIC VISCERA: There is no pelvic mass present. Interval development of small amount of free fluid is noted within the pelvis. Small amount of free fluid is also noted around the liver. OSSEOUS STRUCTURES: Moderate diffuse osteopenia is noted. There is no suspicious lytic or sclerotic abnormalities present. Moderate osteoarthrosis is noted at both hips. A 1.2 cm focal area of sclerosis is noted within the intertrochanteric region of the right proximal femur, most consistent with a bone island, unchanged since 09/18/2017. IMPRESSION: 1. Abnormal right lung base, unchanged since CT of the chest done on 02/25/2017 showing evidence of loss of right lower lobar lung volume and superimposed chronic loculated right-sided pleural effusion. 2. Interval development of nonspecific long segment circumferential thickening of multiple distal small bowel loops including involvement of the terminal ileum, new since prior study dated 09/18/2017. Note is also made of interval development of trace amount of free fluid around the liver and small amount of fluid within the dependent part of the pelvis. Possible differential diagnostic consideration would include infection, inflammation as well as ischemia of the distal small bowel loops. 3. No evidence of any pneumatosis or free intraperitoneal air or mesenteric venous air identified. 4. Nonspecific soft tissue density is noted within the lower anterior abdominal wall, left greater than right, as described above. 5. Likely bone island involving the intertrochanteric region of the right proximal femur. Moderate diffuse osteopenia. This critical result was discussed with Dr. Boyd at 3:47 PM on 10/03/2017 and it was ascertained that the content and urgency of the report was understood at the time of direct communication.
[2017-10-03 22:31] VITALS: BP 138/72
[2017-10-04 06:52] VITALS: BP 136/74
[2017-10-04 08:06] LABS: ABSOLUTE BASOPHIL COUNT 0 /CUMM (0.0-0.2); ABSOLUTE EOSINOPHIL COUNT 0 /CUMM (0.0-0.7); ABSOLUTE GRANULOCYTE CT 13.4 /CUMM (1.4-6.5); ABSOLUTE LYMPH COUNT 0.9 /CUMM (1.2-3.4); BASOPHIL % 0 % (0.0-2.0); EOSINOPHIL % 0 % (0-5); GRANULOCYTE % 87.7 % (42.2-75.2); HEMATOCRIT 35.8 % (37-47); MEAN CORPUSCULAR HGB 28.4 PG (27.0-31.0); MEAN CORPUSCULAR HGB CONC 32.9 G/DL (33.0-37.0); MEAN CORPUSCULAR VOLUME 86.2 FL (81.0-99.0); MEAN PLATELET VOLUME 6.7 FL (7.4-10.4); PLATELET COUNT 243 /CUMM (130-400); RBC DISTRIBUTION WIDTH 13.7 % (11.5-14.5); RED BLOOD CELL CT 4.15 /CUMM (4.20-5.40)
--- NOTE | 2017-10-04 08:57 | PN- Housestaff ---
Nely BENITEZ,Mina 10/04/17 0856: Subjective Follow-up For: Hypertension Bradycardia Subjective: Patient was seen and examined at bedside. She was resting comfortably. She had no acute events overnight. She states that her nausea and abdominal pain started yesterday have significantly improved. She denies any abdominal pain at the moment, and only mild intermittent nausea. She states that when attempting to ambulate with the nurse she felt unsteady, and has been in bed for several days without mobilization. She denies any chest pain, palpitations, shortness of breath, nausea, vomiting, fever, chills. Review of Systems Constitutional: Reports: see HPI. Objective Last 24 Hrs of Vital Signs/I&O Vital Signs Date Time Temp Pulse Resp B/P B/P Pulse O2 O2 Flow FiO2 Mean Ox Delivery Rate 10/04 08 136/76 10/04 0824 136/76 10/04 0652 99.4 88 18 136/74 97 Room Air 10/03 223 98.1 94 20 138/72 95 Room Air 10/03 1724 154/88 10/03 1600 150/86 10/03 1447 98.1 115 20 198/90 98 Room Air 10/03 1426 198/100 10/03 1426 114 198/100 Intake & Output 10/04 1600 10/04 0800 10/04 0000 Intake Total Output Total 200 Balance -200 Output, Urine 200 Patient 155 lb Weight Weight Bed scale Measurement Method Physical Exam General Appearance: Alert, Oriented X3, Cooperative, No Acute Distress Skin Temp/Moisture Exam: Warm/Dry Cardiovascular: Regular Rate, Normal S1, Normal S2 Lungs: Clear to Auscultation, Normal Air Movement Abdomen: Normal Bowel Sounds, Soft, No Tenderness Neurological: Normal Speech, Normal Tone, Sensation Intact Extremities: No Clubbing, No Cyanosis, No Edema Current Medications: Current Medications Sig/Liliya Start time Last Medication Dose Route Stop Time Status Admin Acetaminophen 650 MG Q6P PRN 09/23 223 AC PO Acetaminophen 1,000 MG Q6P PRN 09/23 223 AC IV Albuterol Sulfate 2 PUF Q4-6 PRN PRN 09/23 2245 AC INH Amlodipine Besylate 10 MG DAILY 10/04 0900 AC 10/04 PO 0824 Amlodipine Besylate 10 MG ONCE ONE 10/03 1430 DC 10/03 PO 10/03 1431 1426 Amlodipine Besylate 10 MG DAILY 10/03 1411 DC PO Buspirone HCl 30 MG QPM 09/24 2100 AC 10/03 PO 2031 Buspirone HCl 15 MG QAM 09/24 0900 AC 10/04 PO 0825 Carbidopa/Levodopa 1 TAB TID 09/23 2300 AC 10/04 PO 0823 Guaifenesin 600 MG Q12 09/24 2100 AC 10/04 PO 0824 Heparin Sodium 5,000 UNIT Q8 10/02 2200 AC 10/04 (Porcine) SC 0548 Insulin Aspart 0 TIDAC 10/02 1700 AC 10/03 SC 1724 Labetalol HCl 5 MG ONCE ONE 10/03 1415 DC 10/03 IV 10/03 1416 1426 Metoprolol Succinate 50 MG DAILY 10/03 1600 AC 10/04 PO 0824 Oxycodone HCl 5 MG Q6P PRN 10/02 1700 AC PO Oxycodone HCl 10 MG Q6-PRN PRN 10/02 1700 AC PO Pravastatin Sodium 40 MG 1700 09/24 1700 AC 10/03 PO 1615 Ropinirole HCl 1 MG BID 09/23 2330 AC 10/04 PO 0824 Tiotropium [place] 1 PUF DAILY 09/24 0900 AC 10/04 INH 0825 Venlafaxine HCl 75 MG DAILY 09/24 0900 AC 10/04 PO 0824 Last 24 Hrs of Lab/Elias Results Last 24 Hrs of Labs/Mics: Laboratory Tests 10/04/17 0625: Anion Gap 12, Estimated GFR 29 L, BUN/Creatinine Ratio 21.8, CBC w Diff NO MAN DIFF REQ, RBC 4.15 L, MCV 86.2, MCH 28.4, MCHC 32.9 L, RDW 13.7, MPV 6.7 L, Gran % 87.7 H, Lymphocytes % 5.6 L, Monocytes % 6.7, Eosinophils % 0, Basophils % 0, Absolute Granulocytes 13.4 H, Absolute Lymphocytes 0.9 L, Absolute Monocytes 1.0 H, Absolute Eosinophils 0, Absolute Basophils 0 Assessment/Plan Assessment: Ms Keith is a 77-year-old female with past medical history of COPD not on oxygen, mild cardiomyopathy, venous insufficiency, right bundle branch block, ex -smoker (quit 8yrs) non-small cell lung cancer status post chemotherapy/ radiation 8 yrs ago, nonobstructive carotid stenosis, hypertension, hyperlipidemia, was brought in to the emergency after her recent discharge from the same day, after working up for syncopal episodes. Of note, during her recent hospital admission, she did not have any presyncope or syncopal episodes. Her cardiac examination, and telemetry was uneventful, and she did not have any focal neurologic deficits either. Patient is currently admitted in the telemetry be floor for the management of following issues: #Syncope/orthostatic hypotension No focal neurologic deficit, no arrhythmias, no complaints of dizziness while she is an inpatient so far. She has been evaluated by cardiology as well as neurology for the same. However orthostatic hypotension has been positive * Will check her orthostat BP again * PM Placed 10/02/2017 * She has been refusing home visiting nurse, even if she will come in only to take her blood pressures or check on her symptoms. * She has been taught measures to mitigate orthostatic hypotension. Patient understands it. * Discontinue telemetry monitoring, patient is cleared by cardiology. anticipated discharge tomorrow #HTN/ Possible renal artery stenosis * Resumed BB and CCB * Her ARB has been stopped given her CHAS on CKD. * She will need further follow up for renal artery status. * Hydralazine PRN for hypertension #Leukocytosis * Attributed to stress demargination. If spikes temperature, may consider CT abdomen and Pelvis to rule out acute pathology. * CT abdomen and pelvis showed fluid surrounding the liver and some fluid in the dependent spaces, patient is clinically improving, with no abdominal pain currently and only mild nausea, white count is also improving #Systolic Heart Failure Last Echo showed EF of 50%. No need to repeat echo. Continue, home medications. #CKD Stage 3B Renal status has slightly deteriorated in this month. Most likely this is her baseline. Creatinine today is 1.7. She will need a close follow up with talent acquisition program manager on discharge. #Histoy of DM. Continue Novolog SS #Physical deconditioning Patient has been mildly unsteady while getting out of bed, she attributes this to being bedbound for several days * We have reconsulted physical therapy for discharge recommendations. * We will recheck orthostatic vital signs when patient is working with physical therapy tomorrow Diet: CC3 diet DVT ppx: SQ Heparin Code status: Full code Problem List: 1. Bradycardia 2. Pacemaker 3. CKD (chronic kidney disease) stage 3, GFR 30-59 ml/min Pain Ratin Pain Location: none Pain Goal: Remain pain free Pain Plan: pain pathway Tomorrow's Labs & Rationales: cbc, bep Juma Rdz MD 10/04/17 1450: Attending MD Review Statement Attending Statement Attending MD Statement: examined this patient, discuss w/resident/PA/CARDIOVASCULAR DISEASE SPECIALIST, agreed w/resident/PA/CARDIOVASCULAR DISEASE SPECIALIST, discussed with family Attending Assessment/Plan: Patient s/p pacemaker on October 02, 2017 for recurrent syncope and bradycardia with SSS and AV robbie block with 6 sec pause. WBC stress induced - trending down today, no fever, chills or signs of active infection. Patient's nausea is better now. Denies any other specific complaints On examination today vital signs blood pressure 136/76 heart rate of 88 respiratory rate of 18 afebrile saturating 97% on room. Will obtain physical therapy recommendations for discharge likely tomorrow. Orthostasis will be checked tomorrow. Patient currently cleared from cardiology perspective for discharge, patient will need follow-up as an outpatient in 1 week.
[2017-10-04 09:19] LABS: WHITE BLOOD CELL COUNT 15.3 /CUMM (4.8-10.8)
--- NOTE | 2017-10-04 11:11 | PN- Cardiology ---
Subjective Subjective: The patient is awake, alert Patient feels overall improved The events of the last 24 hours as well as telemetry were reviewed. Review of Systems: The review of systems is negative for chest pains, palpitations nor lightheadedness. Nausea improved The remainder of the 14 point review of systems is noncontributory with the exception of above. Objective Vital Signs and I&Os Vital Signs Date Time Temp Pulse Resp B/P B/P Pulse O2 O2 Flow FiO2 Mean Ox Delivery Rate 10/04 0824 136/76 10/04 0824 136/76 10/04 0652 99.4 88 18 136/74 97 Room Air 10/03 2231 98.1 94 20 138/72 95 Room Air 10/03 1724 154/88 10/03 1600 150/86 10/03 1447 98.1 115 20 198/90 98 Room Air 10/03 1426 198/100 10/03 1426 114 198/100 Intake & Output 10/04 1600 10/04 0800 10/04 0000 10/03 1600 10/03 0800 10/03 0000 Intake Total 220 50 Output Total 200 300 400 Balance -200 -80 -350 Intake, IV 20 50 Intake, Oral 200 Number 1 Bowel Movements Output, Urine 200 300 400 Patient 155 lb 156 lb Weight Weight Bed scale Bed scale Measurement Method Physical Exam: General: Nontoxic, no apparent distress. HEENT: Sclera and conjunctiva within normal limits, without xanthelasmas. Neck: Carotids 2+ without bruits. Respiratory: Clear to auscultation, air movement is good, without accessory respiratory muscle use. Heart: Regular rate and rhythm, without murmurs, without JVD. Pacer implant site appears within normal limits Abdomen: Soft, nontender, no masses, normoactive bowel sounds. Extremities: Without clubbing, cyanosis, without edema. Neuro: Nonfocal exam, strength, 5 out of 5 Skin: Within normal limits without lesions. Psych: Mood and affect: Normal Current Medications: Current Medications Sig/Liliya Start time Last Medication Dose Route Stop Time Status Admin Acetaminophen 650 MG Q6P PRN 09/23 2230 AC PO Acetaminophen 1,000 MG Q6P PRN 09/23 223 AC IV Albuterol Sulfate 2 PUF Q4-6 PRN PRN 09/23 2245 AC INH Amlodipine Besylate 10 MG DAILY 10/04 0900 AC 10/04 PO 0824 Amlodipine Besylate 10 MG ONCE ONE 10/03 1430 DC 10/03 PO 10/03 1431 1426 Amlodipine Besylate 10 MG DAILY 10/03 1411 DC PO Buspirone HCl 30 MG QPM 09/24 2100 AC 10/03 PO 2031 Buspirone HCl 15 MG QAM 09/24 0900 AC 10/04 PO 0825 Carbidopa/Levodopa 1 TAB TID 09/23 2300 AC 10/04 PO 0823 Guaifenesin 600 MG Q12 09/24 2100 AC 10/04 PO 0824 Heparin Sodium 5,000 UNIT Q8 10/02 2200 AC 10/04 (Porcine) SC 0548 Insulin Aspart 0 TIDAC 10/02 1700 AC 10/03 SC 1724 Labetalol HCl 5 MG ONCE ONE 10/03 1415 DC 10/03 IV 10/03 1416 1426 Metoprolol Succinate 50 MG DAILY 10/03 1600 AC 10/04 PO 0824 Oxycodone HCl 5 MG Q6P PRN 10/02 1700 AC PO Oxycodone HCl 10 MG Q6-PRN PRN 10/02 1700 AC PO Pravastatin Sodium 40 MG 1700 09/24 1700 AC 10/03 PO 1615 Ropinirole HCl 1 MG BID 09/23 2330 AC 10/04 PO 0824 Tiotropium [place] 1 PUF DAILY 09/24 0900 AC 10/04 INH 0825 Trimethobenzamide HCl 200 MG ONCE ONE 10/03 1215 DC 10/03 IM 10/03 1216 1216 Venlafaxine HCl 75 MG DAILY 09/24 0900 AC 10/04 PO 0824 Results Last 48 Hrs of Labs/Mics: Laboratory Tests 10/04/17 0625: Anion Gap 12, Estimated GFR 29 L, BUN/Creatinine Ratio 21.8, CBC w Diff NO MAN DIFF REQ, RBC 4.15 L, MCV 86.2, MCH 28.4, MCHC 32.9 L, RDW 13.7, MPV 6.7 L, Gran % 87.7 H, Lymphocytes % 5.6 L, Monocytes % 6.7, Eosinophils % 0, Basophils % 0, Absolute Granulocytes 13.4 H, Absolute Lymphocytes 0.9 L, Absolute Monocytes 1.0 H, Absolute Eosinophils 0, Absolute Basophils 0 10/03/17 0645: Anion Gap 13, Estimated GFR 37 L, BUN/Creatinine Ratio 28.6 H, CBC w Diff NO MAN DIFF REQ, RBC 4.60, MCV 85.7, MCH 28.6, MCHC 33.3, RDW 14.0, MPV 6.8 L, Gran % 94.5 H, Lymphocytes % 2.8 L, Monocytes % 2.7, Eosinophils % 0, Basophils % 0, Absolute Granulocytes 22.3 H, Absolute Lymphocytes 0.7 L, Absolute Monocytes 0.6, Absolute Eosinophils 0, Absolute Basophils 0 Assessment/Plan Assessment/Plan 1. Renal insufficiency, chronic 2. Syncope; recurrent 3. History of nonobstructive carotid disease 4. Known right bundle branch block 5. COPD 6. History of non-small cell lung cancer 7. History of hypertension/hyperlipidemia 8. History of mild cardiomyopathy in the past with possible infarct versus artifact on nuclear stress test 9. Parkinson's disease 10. AV block and sick sinus syndrome 11. Orthostatic hypotension The patient is status post dual-chamber pacemaker implantation ([employer]tr[employer]) and is overall doing well without further significant arrhythmia. Nausea has improved since discontinuance of her Mestinon, and blood pressures appear to have better controlled. There have been no further episodes of lightheadedness. At this time, we will attempt to ambulate the patient and if she is asymptomatic from a hypertension standpoint, she may be discharged home with further outpatient follow-up in approximately 1 week. Continue telemetry? No
[2017-10-04 14:32] VITALS: BP 148/78
[2017-10-05] VITALS: BP 138/86
[2017-10-05 06:30] VITALS: BP 140/82
--- NOTE | 2017-10-05 08:27 | PN- Housestaff ---
Dominga BENITEZ,[facility] 10/05/17 0826: Subjective Follow-up For: Orthostatic Hypotension Hypertension Bradycardia Tele-Events Since Last Visit: off tele Subjective: Patient was seen and examined at bedside. Feels well. Has no complaints. Wishes to go home today. Review of Systems Constitutional: Reports: no symptoms. Objective Last 24 Hrs of Vital Signs/I&O Vital Signs Date Time Temp Pulse Resp B/P B/P Pulse O2 O2 Flow FiO2 Mean Ox Delivery Rate 10/05 0630 98.9 80 18 140/82 97 10/05 0000 98.7 85 18 138/86 97 10/04 1432 99.1 85 18 148/78 98 Room Air Intake & Output 10/05 1600 10/05 0800 10/05 0000 Intake Total 300 240 Output Total 300 200 Balance 300 -300 40 Intake, Oral 300 240 Output, Urine 300 200 Patient 154 lb Weight Physical Exam General Appearance: Alert, Oriented X3, Cooperative, No Acute Distress Skin: No Rashes, No Breakdown Skin Temp/Moisture Exam: Warm/Dry Sepsis Skin Exam (color): Normal for Ethnicity HEENT: Atraumatic Cardiovascular: Normal S1, Normal S2, No Murmurs Lungs: Normal Air Movement Abdomen: Soft, No Tenderness Neurological: Normal Speech Extremities: No Edema Assessment/Plan Assessment: Ms Keith is a 77-year-old female with past medical history of COPD not on oxygen, mild cardiomyopathy, venous insufficiency, right bundle branch block, ex -smoker (quit 8yrs) non-small cell lung cancer status post chemotherapy/ radiation 8 yrs ago, nonobstructive carotid stenosis, hypertension, hyperlipidemia, was brought in to the emergency after her recent discharge from the same day, after working up for syncopal episodes. #Syncope/orthostatic hypotension No focal neurologic deficit, no arrhythmias, no complaints of dizziness while she is an inpatient so far. She has been evaluated by cardiology as well as neurology for the same. However orthostatic hypotension has been positive today. * s/p PM on 10/02/2017 * She has been refusing home visiting nurse, even if she will come in only to take her blood pressures or check on her symptoms. * She has been taught measures to mitigate orthostatic hypotension. Patient understands it. * off tele * She continues to have orthostatic hypotension. However, she is asymptomatic. * She is stable to be discharged today after discussing with cardiology. * Will not discharge her on pyridostigmine as she gets nauseous with it. * Will follow up with cardiology as outpatient for further management. * discharge on compression stockings. #History of HTN * Resumed metoprolol and amlodipine #Leukocytosis * Attributed to stress demargination. * Been trending down gradually each day. * CT abdomen and pelvis on 10/03 showed fluid surrounding the liver and some fluid in the dependent spaces, patient is clinically improving, with no abdominal pain. #Systolic Heart Failure Last Echo showed EF of 50%. No need to repeat echo. Continue, home medications. #CKD Stage 3B Creatinine today is 1.5 which is close to her baseline. #Histoy of DM. Continue Novolog SS #Physical deconditioning Patient had been mildly unsteady while getting out of bed, she attributes this to being bedbound for several days * Worked well with PT today with discharge recommendations of home self care. Diet: CC3 diet DVT ppx: SQ Heparin Code status: Full code Problem List: 1. Orthostatic hypotension Pain Ratin Pain Location: none Pain Goal: Remain pain free Pain Plan: none Tomorrow's Labs & Rationales: CBC, BEP Kendell BENITEZ,Juma 10/05/17 1333: Attending MD Review Statement Attending Statement Attending MD Statement: examined this patient, discuss w/resident/PA/SUPERVISOR CARDING, agreed w/resident/PA/SUPERVISOR CARDING, reviewed EMR data (avail), discussed with nursing Attending Assessment/Plan: Patient s/p pacemaker on October 02, 2017 for recurrent syncope and bradycardia with SSS and AV robbie block with 6 sec pause. WBC stress induced - trending down today, no fever, chills or signs of active infection. Patient's nausea is better now. Denies any other specific complaints On examination today vital signs blood pressure 140/82 heart rate of 80 respiratory rate of 18 afebrile saturating 97% on room. Physical therapy recommended discharge with home or self care. Orthostasis checked. Patient currently cleared from cardiology perspective for discharge, patient will need follow-up as an outpatient in 1 week. Plan for discharge today.
[2017-10-05 08:45] LABS: ABSOLUTE BASOPHIL COUNT 0 /CUMM (0.0-0.2); ABSOLUTE EOSINOPHIL COUNT 0 /CUMM (0.0-0.7); ABSOLUTE GRANULOCYTE CT 12.1 /CUMM (1.4-6.5); ABSOLUTE LYMPH COUNT 0.7 /CUMM (1.2-3.4); ABSOLUTE MONOCYTE COUNT 0.8 /CUMM (0.10-0.60); BASOPHIL % 0 % (0.0-2.0); EOSINOPHIL % 0.3 % (0-5); GRANULOCYTE % 88.8 % (42.2-75.2); HEMATOCRIT 37.2 % (37-47); MEAN CORPUSCULAR HGB 28.7 PG (27.0-31.0); MEAN CORPUSCULAR HGB CONC 33.3 G/DL (33.0-37.0); MEAN CORPUSCULAR VOLUME 86.1 FL (81.0-99.0); MEAN PLATELET VOLUME 6.9 FL (7.4-10.4); PLATELET COUNT 203 /CUMM (130-400); RBC DISTRIBUTION WIDTH 13.6 % (11.5-14.5); RED BLOOD CELL CT 4.32 /CUMM (4.20-5.40)
[2017-10-05 09:34] LABS: WHITE BLOOD CELL COUNT 13.6 /CUMM (4.8-10.8)
--- NOTE | 2017-10-05 10:48 | PN- Cardiology ---
Subjective Subjective: The patient is awake, alert, feels improved The events of the last 24 hours as well as telemetry were reviewed. Review of Systems: The review of systems is negative for chest pains, palpitations nor lightheadedness. The remainder of the 14 point review of systems is noncontributory with the exception of above. Objective Vital Signs and I&Os Vital Signs Date Time Temp Pulse Resp B/P B/P Pulse O2 O2 Flow FiO2 Mean Ox Delivery Rate 10/05 0630 98.9 80 18 140/82 97 10/05 0000 98.7 85 18 138/86 97 10/04 1432 99.1 85 18 148/78 98 Room Air Intake & Output 10/05 1600 10/05 0800 10/05 0000 10/04 1600 10/04 0000 Intake Total 240 400 Output Total 300 200 350 200 Balance -300 40 50 -200 Intake, Oral 240 400 Output, Urine 300 200 350 200 Patient 154 lb 155 lb Weight Weight Bed scale Measurement Method Physical Exam: General: Nontoxic, no apparent distress. HEENT: Sclera and conjunctiva within normal limits, without xanthelasmas. Neck: Carotids 2+ without bruits. Respiratory: Clear to auscultation, air movement is good, without accessory respiratory muscle use. Heart: Regular rate and rhythm, without murmurs, without JVD, pacemaker site appears within normal limits. Abdomen: Soft, nontender, no masses, normoactive bowel sounds. Extremities: Without clubbing, cyanosis, without edema. Neuro: Nonfocal exam, strength, 5 out of 5 Skin: Within normal limits without lesions. Psych: Mood and affect: Normal Current Medications: Current Medications Sig/Liliya Start time Last Medication Dose Route Stop Time Status Admin Acetaminophen 650 MG Q6P PRN 09/23 2229 AC PO Acetaminophen 1,000 MG Q6P PRN 09/23 223 AC IV Albuterol Sulfate 2 PUF Q4-6 PRN PRN 09/23 2245 AC INH Amlodipine Besylate 10 MG DAILY 10/04 899 AC 10/05 PO 926 Buspirone HCl 30 MG QPM 09/24 2100 AC 10/04 PO 2054 Buspirone HCl 15 MG QAM 09/24 09 AC 10/05 PO 926 Carbidopa/Levodopa 1 TAB TID 09/23 230 AC 10/05 PO 0927 Guaifenesin 600 MG Q12 09/24 2100 AC 10/05 PO 0927 Heparin Sodium 5,000 UNIT Q8 10/02 2200 AC 10/05 (Porcine) SC 0646 Insulin Aspart 0 TIDAC 10/02 1700 AC 10/03 SC 1724 Metoprolol Succinate 50 MG DAILY 10/03 1600 AC 10/05 PO 0927 Oxycodone HCl 5 MG Q6P PRN 10/02 1700 AC PO Oxycodone HCl 10 MG Q6-PRN PRN 10/02 1700 AC PO Pravastatin Sodium 40 MG 1700 09/24 1700 AC 10/04 PO 1544 Ropinirole HCl 1 MG BID 09/23 2330 AC 10/05 PO 09 Tiotropium Lorton 1 PUF DAILY 09/24 0900 AC 10/05 INH 0927 Venlafaxine HCl 75 MG DAILY 09/24 0900 AC 10/05 PO 0927 Results Last 48 Hrs of Labs/Mics: Laboratory Tests 10/05/17 0730: Anion Gap 10, Estimated GFR 34 L, BUN/Creatinine Ratio 26.0 H, CBC w Diff NO MAN DIFF REQ, RBC 4.32, MCV 86.1, MCH 28.7, MCHC 33.3, RDW 13.6, MPV 6.9 L, Gran % 88.8 H, Lymphocytes % 5.1 L, Monocytes % 5.8, Eosinophils % 0.3, Basophils % 0, Absolute Granulocytes 12.1 H, Absolute Lymphocytes 0.7 L, Absolute Monocytes 0.8 H, Absolute Eosinophils 0, Absolute Basophils 0 10/04/17 0625: Anion Gap 12, Estimated GFR 29 L, BUN/Creatinine Ratio 21.8, CBC w Diff NO MAN DIFF REQ, RBC 4.15 L, MCV 86.2, MCH 28.4, MCHC 32.9 L, RDW 13.7, MPV 6.7 L, Gran % 87.7 H, Lymphocytes % 5.6 L, Monocytes % 6.7, Eosinophils % 0, Basophils % 0, Absolute Granulocytes 13.4 H, Absolute Lymphocytes 0.9 L, Absolute Monocytes 1.0 H, Absolute Eosinophils 0, Absolute Basophils 0 Assessment/Plan Assessment/Plan 1. Renal insufficiency, chronic 2. Syncope; recurrent 3. History of nonobstructive carotid disease 4. Known right bundle branch block 5. COPD 6. History of non-small cell lung cancer 7. History of hypertension/hyperlipidemia 8. History of mild cardiomyopathy in the past with possible infarct versus artifact on nuclear stress test 9. Parkinson's disease 10. AV block and sick sinus syndrome 11. Orthostatic hypotension The patient is status post dual-chamber pacemaker implantation ([employer]) and is overall doing well without further significant arrhythmia. Nausea has improved since discontinuance of her Mestinon, and blood pressures appear to have better controlled. There have been no further episodes of lightheadedness. At this time, we will attempt to ambulate the patient and if she is asymptomatic from a hypertension standpoint, she may be discharged home with further outpatient follow-up in approximately 1 week. Continue telemetry? No
[2017-10-05] MEDS ORDERED: NORVASC10 M1 PO (14:48)
[2017-10-05 15:02] VITALS: BP 124/78
== END 2017-10-05 15:35 | DRG 243 ==
LOC: DELPENDDIS → ERH 13:51 → 1NO 19:08 → ERHI 19:08 → ENRESERV 20:17 → ENTRNSPT 20:57 → EDTRNSPT 21:05 → EDTRNSPTSTS 21:05 → 1NO 21:14 → CMPTRNSPT 22:27 → 1NO 09-24 10:13 → ENPENDDIS 09-30 13:03 → ENTRNSPT 10-02 18:20 → EDTRNSPT 10-02 18:33 → EDTRNSPTSTS 10-02 18:33 → CMPTRNSPT 10-02 18:48 → ENPENDDIS 10-05 12:52 → EDPENDDISTM 10-05 13:53 → ENTRNSPT 10-05 15:19 → EDTRNSPTSTS 10-05 15:22 → 1NO 10-05 15:35 → CMPTRNSPT 10-05 15:51
PROVIDERS: Dermatology; Emergency Medicine; Preventive Medicine Public Health & General Preventive Medicine; Student in an Organized Health Care Education/Training Program
PROC: 02HK3JZ Insertion of Pacemaker Lead into Right Ventricle, Percutaneous Approach (ICD-10-PCS; principal; 2017-10-02)
PROC: 0JH606Z Insertion of Pacemaker, Dual Chamber into Chest Subcutaneous Tissue and Fascia, Open Approach (ICD-10-PCS; principal; 2017-10-02)
PROC: 02H63JZ Insertion of Pacemaker Lead into Right Atrium, Percutaneous Approach (ICD-10-PCS; principal; 2017-10-02)
DX: I49.5 Sick sinus syndrome (principal); N17.9 Acute kidney failure, unspecified; I42.9 Cardiomyopathy, unspecified; G20 Parkinson's disease; Z99.81 Dependence on supplemental oxygen; I95.1 Orthostatic hypotension; J44.9 Chronic obstructive pulmonary disease, unspecified; N18.3 Chronic kidney disease, stage 3 (moderate); I45.10 Unspecified right bundle-branch block; I44.1 Atrioventricular block, second degree; E78.5 Hyperlipidemia, unspecified; I12.9 Hypertensive chronic kidney disease with stage 1 through stage 4 chronic kidney disease, or unspecified chronic kidney disease; Z85.118 Personal history of other malignant neoplasm of bronchus and lung; E87.6 Hypokalemia; Z92.21 Personal history of antineoplastic chemotherapy; F41.9 Anxiety disorder, unspecified; D72.829 Elevated white blood cell count, unspecified; I87.2 Venous insufficiency (chronic) (peripheral); Z87.891 Personal history of nicotine dependence
CPT/HCPCS: 1NP; 36415; 36592; 71045; 74176; 81001; 82436; 87040; 87070; 87086; 93005; 93010; 96360; 97116-GO; 97161-GP; 97164-GP; 97530-GO; C1785; C1898; J0456; J0690; J0713; J1644; J1815; J2001; J2405; J2765; J3250; J3490; J7040; J7042